=== PATIENT | male | born 1975 | race Two or more races ===

== ENCOUNTER 2022-06-20 16:25 | Inpatient (IN) | payer OTHER ==
[~2022-06-20] VITALS: Ht 170.2 cm; Wt 42.2 kg
[~2022-06-20 16:25] MED LIST: AMIN30LI2 PO; ASCO-352 PO; ASPI-1169 PO; ATOR40TA PO; BISA10SU11 RC; CALC500T52 PO; CLOP75TA15 PO; DOXY100T2 PO; FERR325T23 PO; FOLI0.4T6 PO; INSU100V39 SQ; INSU100V7 SQ; LEVE500T9 PO; MULT-447 PO; MUPI22OI2 TP; NA P133E RC; OLAN2.5T3 PO; PANT40TA49 PO; PIPE3.379 IV; PSYL1PAC8 PO; SODI480S2 TOP; TIMO5SOL11 EACHEYE; ZINC1CAP3 PO
--- NOTE | 2022-06-20 16:40 | NUR ---
PT BIB [facility] FROM [facility], PER REPORT PT WAS NOTED W/ FEVER, TACHYCARDIA AND TESTED POSITIVE FOR COVID TODAY. 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 PT VERBALLY RESPONSIVE. APPEARS COMFORTABLE. ON MONITOR. AWAITING MD MCKEON.
--- NOTE | 2022-06-20 18:06 | NUR ---
Leland capps in ED - 06/20/22 at 1857 by FELIPE COVID SWAB, INFLUENZA, RSV SWAB COLLECTED. LAB CALLED FOR OIL DISPENSER.
[2022-06-20] MEDS ORDERED: IV NS 0.9% 1,000 ML IV ONE ×2 (18:30→22:30)
[2022-06-20] MEDS ORDERED: NOREPINEPHRINE 8 MG in IV NS 0.9% 242 ML IV PRN (18:30)
--- NOTE | 2022-06-20 18:30 | NUR ---
DR WRIGHT AT BEDSIDE FOR EVAL.
--- NOTE | 2022-06-20 18:50 | NUR ---
IV LINE STARTED BLOOD DRAWN AND SENT TO LAB.
--- NOTE | 2022-06-20 18:56 | NUR ---
RADIOLOGY AT BEDSIDE FOR CHEST XRAY.
--- NOTE | 2022-06-20 19:40 | NUR ---
COVID SWAB COLLECTED AND SENT TO LAB.
[2022-06-20 19:55] LABS: BASOPHILS # (AUTO) 0.1 K/uL (0.0-0.2); BASOPHILS % (AUTO) 1.1 % (0.0-2.0); HEMATOCRIT 24 % (39-51); HEMOGLOBIN 7.7 g/dL (13.5-17.5); LYMPHOCYTES # (AUTO) 2.4 K/uL (0.8-4.8); LYMPHOCYTES % (AUTO) 21.5 % (20.0-44.0); MEAN CORPUSCULAR HGB CONC 33 g/dl (31.0-36.0); MEAN CORPUSCULAR VOLUME 85 fL (80-96); MONOCYTES # (AUTO) 1.3 K/uL (0.1-1.30); MONOCYTES % (AUTO) 11.1 % (2.0-12.0); NEUTROPHILS # (AUTO) 7.1 K/uL (1.8-8.9); NEUTROPHILS % (AUTO) 62.3 % (43.0-81.0); PLATELET COUNT (AUTO) 819 K/uL (150-450); RED BLOOD CELL COUNT(AUTO) 2.77 MIL/uL (4.5-6.0); WHITE BLOOD COUNT (AUTO) 11.3 K/uL (4.3-11.0)
[2022-06-20 20:09] LABS: CALCIUM, SERUM 7.3 mg/dL (8.5-10.1); CREATININE 0.9 mg/dL (0.6-1.3); POTASSIUM 4.7 mmol/L (3.5-5.1)
--- NOTE | 2022-06-20 20:27 | NUR ---
PROVID PT WITH URINAL AWAITING FOR URINE SAMPLE
--- NOTE | 2022-06-20 20:51 | NUR ---
URINE COLLECTED AND SENT TO LAB
--- NOTE | 2022-06-20 21:36 | NUR ---
COVID POSITIVE, MADE AWARE
[2022-06-20 23:00] LABS: BILIRUBIN,URINE NEGATIVE (NEGATIVE); COLOR,URINE YELLOW (YELLOW); LEUKOCYTE ESTERASE ,URINE 3+ (NEGATIVE); NITRITE, URINE NEGATIVE (NEGATIVE); PH,URINE 6.5 (5.0-8.0); PROTEIN,URINE TRACE mg/dl (NEGATIVE); UGLUCOSE NEGATIVE (NEGATIVE); UROBILINOGEN,URINE 0.2 EU/dL (0.2)
[2022-06-20 23:02] LABS: BACTERIA,URINE Few /HPF (None Seen); RBC,URINE 0-2 /HPF (0-2); SQUAMOUS EPITHELIAL CELL,UR Few /HPF (None Seen); WBC,URINE 21-50 /HPF (0-3)
--- NOTE | 2022-06-20 23:45 | NUR ---
REPORT GIVEN TO BLANCA GONZALEZ RN FOR HALI
--- NOTE | 2022-06-20 23:58 | NUR ---
PT TRANSFERRED TO [facility] VIA [facility]S PROTOCOL. VSS
[2022-06-21] VITALS: BP 104/68
[2022-06-21] MEDS ORDERED: ALBUTEROL FS 2.5 MG/0.5 ML VIAL.NEB NEB PRN
[2022-06-21] MEDS ORDERED: CEFTRIAXONE 1 G in IV D5W 50 ML IV SCH ×2
[2022-06-21] MEDS ORDERED: ONDANSETRON HCL/PF 4 MG/2 ML VIAL IVP PRN
[2022-06-21] MEDS ORDERED: MIDODRINE HCL (5MG) 5 MG TABLET PO PRN
[2022-06-21] MEDS ORDERED: CEFTRIAXONE 1 G VIAL ONE (00:32)
[2022-06-21] MEDS: IV NS 0.9% 1,000 ML IV SCH ×2 (00:33→13:19)
[2022-06-21] MEDS: MORPHINE SULFATE INJ 2 MG/ML DISP.SYRIN IV PRN (00:38)
--- NOTE | 2022-06-21 00:40 | NUR ---
RN NOTE PT REPORTS OF A 8/10 PAIN ON HIS BLE. PT ADMINISTERED MORPHINE 2 MG. WILL MONITOR FOR EFFECTIVENESS.
--- NOTE | 2022-06-21 01:03 | NUR ---
RN OPENING NOTE PT RECEIVED FROM ER. A&OX4. SKIN IS PALE AND DRY. RESPIRATIONS EVEN AND UNLABORED ON RA. DENIES SOB. C/O BILATERAL LEG PAIN 03/08. PT GIVEN MORPHINE FOR PAIN MANAGEMENT. IV ACCESS ON R FA 20 G PATENT AND FLUSHED. IV ABX INFUSING. GTUBE INTACT WITH NO FEEDING. DENIES OTHER NEEDS AT THIS TIME. SAFETY PRECAUTIONS IN PLACE. BED LOCKED AND AT LOWEST LEVEL WITH 2 RAILS UP. CALL LIGHT WITHIN REACH. Addendum: 06/21/22 at 0138 by PAULA LOPEZ RN WOUNDS NOTED BILAT LOWER EXTREMITIES. PICTURES TAKEN AND PLACE IN CHART.
[2022-06-21] MEDS: ACETAMINOPHEN 325 MG TABLET PO PRN (01:39)
[2022-06-21 04:00] VITALS: BP 96/55
--- NOTE | 2022-06-21 06:14 | NUR ---
RN CLOSING NOTE PT A&OX4. SKIN IS PALE AND DRY. RESPIRATIONS EVEN AND UNLABORED ON RA. PT IS PARAPLEGIC AND LEGALLY BLIND. GANGRENE NOTED BILAT FEET AND WOUND ON L GUTIERREZ. DRESSINGS CHANGED. GTUBE IN PLACE WITH NO ONGOING FEEDING. IV ACCESS ON R FA 20G INTACT. DENIES PAIN AND OTHER NEEDS AT THIS TIME. SAFETY PRECAUTIONS IN PLACE. BED LOCKED AND AT LOWEST LEVEL WITH 2 RAILS UP. CALL LIGHT WITHIN REACH.
[2022-06-21 07:27] LABS: BASOPHILS # (AUTO) 0.1 K/uL (0.0-0.2); BASOPHILS % (AUTO) 0.6 % (0.0-2.0); EOSINOPHILS % (AUTO) 4.1 % (0.0-6.0); LYMPHOCYTES # (AUTO) 2.1 K/uL (0.8-4.8); LYMPHOCYTES % (AUTO) 20.6 % (20.0-44.0); MEAN CORPUSCULAR HGB CONC 34 g/dl (31.0-36.0); MEAN CORPUSCULAR VOLUME 84 fL (80-96); MONOCYTES # (AUTO) 0.9 K/uL (0.1-1.30); MONOCYTES % (AUTO) 9.3 % (2.0-12.0); NEUTROPHILS # (AUTO) 6.7 K/uL (1.8-8.9); NEUTROPHILS % (AUTO) 65.4 % (43.0-81.0); PLATELET COUNT (AUTO) 777 K/uL (150-450); RED BLOOD CELL COUNT(AUTO) 2.34 MIL/uL (4.5-6.0); WHITE BLOOD COUNT (AUTO) 10.2 K/uL (4.3-11.0)
[2022-06-21 07:35] LABS: HEMATOCRIT 20 % (39-51); HEMOGLOBIN 6.6 g/dL (13.5-17.5)
[2022-06-21 07:36] LABS: BILIRUBIN,TOTAL 0.1 mg/dL (0.2-1.0); CALCIUM, SERUM 7.2 mg/dL (8.5-10.1); CREATININE 0.7 mg/dL (0.6-1.3); MAGNESIUM 1.7 mg/dL (1.8-2.4); PHOSPHORUS 3.1 mg/dL (2.5-4.9); POTASSIUM 3.5 mmol/L (3.5-5.1); TOTAL PROTEIN, SERUM 5.6 g/dL (6.4-8.2)
--- NOTE | 2022-06-21 07:38 | NUR ---
lab called in stated that hgb 6.[address] Hoyos left message to at this time waiting for his call back
[2022-06-21 07:50] LABS: ALBUMIN 0.8 g/dL (3.4-5.0)
--- NOTE | 2022-06-21 07:52 | NUR ---
lab called in his albumin was 0.8 notified as well
[2022-06-21 08:00] VITALS: BP 96/57
[2022-06-21] MEDS ORDERED: EPOE1VIA7 SQ (08:04)
[2022-06-21] MEDS ORDERED: ACET-868 PO (08:04)
[2022-06-21] MEDS ORDERED: GLUC1KIT IM (08:04)
[2022-06-21] MEDS ORDERED: DOCU250C14 PO (08:04)
[2022-06-21] MEDS ORDERED: GABA-532 PO (08:04)
[2022-06-21] MEDS ORDERED: NUT.250L18 GT (08:04)
[2022-06-21] MEDS ORDERED: HYDR-4303 PO (08:04)
[2022-06-21] MEDS ORDERED: TIMO5DRO18 EACHEYE (08:04)
--- NOTE | 2022-06-21 08:10 | NUR ---
DR. COPELAND AT THE UNIT AND MADE AWARE OF THE LAB RESULTS CBC/CMP AND CRITICAL LAB RESULT HGB=6.6; AND LOW ALBUMIN 0.8; PER MD " I WILL LOOK AT IT."
[2022-06-21 08:24] LABS: EOSINOPHILS % (MANUAL) 5 % (0-4); LYMPHOCYTES % (MANUAL) 16 % (16-48); MONOCYTES % (MANUAL) 6 % (0-11.0); NEUTROPHILS % (MANUAL) 73 (42-76)
[2022-06-21] MEDS: BLOOD SUGAR DIAGNOSTIC 1 EACH STRIP VI SCH ×4 (08:49→21:43)
[2022-06-21] MEDS: FERROUS SULFATE (325 MG) 325 MG/TAB TABLET PO SCH ×2 (09:00→17:00)
[2022-06-21] MEDS: ASPIRIN 81 MG TAB.CHEW PO SCH (09:00)
[2022-06-21] MEDS: CLOPIDOGREL BISULFATE 75 MG TABLET PO SCH (09:00)
[2022-06-21] MEDS: ZINC SULFATE 220 MG CAPSULE PO SCH (09:00)
[2022-06-21] MEDS: DOCUSATE SODIUM LIQ 100 MG/10 ML UDC PO SCH ×2 (09:00→17:00)
[2022-06-21] MEDS: LEVETIRACETAM (250 MG) 250 MG TABLET PO SCH ×2 (09:00→17:00)
[2022-06-21] MEDS: CALCIUM CARBONATE (1250) 500 MG TABLET PO SCH (09:00)
[2022-06-21] MEDS: PANTOPRAZOLE 40 MG TABLET.DR PO SCH (09:00)
[2022-06-21] MEDS: MULTIVIT W/MINERALS 1 TAB TABLET PO SCH (09:01)
[2022-06-21] MEDS: FOLIC ACID 1 MG TABLET PO SCH (09:01)
[2022-06-21] MEDS: POLYETHYLENE GLYCOL 3350 17 GM POWD.PACK PO SCH (09:01)
[2022-06-21] MEDS: ASCORBIC ACID 500 MG TABLET PO SCH (09:01)
[2022-06-21] MEDS: OLANZAPINE 2.5 MG TABLET PO SCH (09:02)
[2022-06-21] MEDS: PROSTAT (PYXIS) 30 ML UDC PO SCH ×3 (09:06→17:00)
[2022-06-21] MEDS: INSULIN REGULAR, HUMAN 100 UNIT/ML 3 ML VIAL SQ PRN ×2 (09:08→18:37)
[2022-06-21] MEDS ORDERED: NA PHOS,M-B/NA PHOS,DI-BA 1 EA ENEMA RC PRN (10:00)
[2022-06-21] MEDS: DAKINS HALF STRENGTH (0.25%) 480 ML BOTTLE TOP SCH (10:15)
[2022-06-21] MEDS: TIMOLOL -XE 0.5% 5 ML BOTTLE EACHEYE SCH ×2 (11:35→17:47)
[2022-06-21] MEDS: Magnesium 1GM/D5W 100ML PREMIX 100 ML IV SCH ×2 (11:37→12:39)
[2022-06-21] MEDS: MUPIROCIN OINT 2% 22 GM TUBE TP SCH (11:37)
--- NOTE | 2022-06-21 11:45 | NUR ---
WOUND CARE CONSULT: REVIEWED CHART, NURSING DOCUMENTATION AND PHOTOS WHICH INDICATE SACRAL INTACT DEEP TISSUE INJURY WITH SCARRING AND LOWER EXTREMITY WOUNDS WITH NECROTIC TISSUE , PRESENT ON ADMISSION. DR FERREIRA CALLED FOR DPM CONSULT. DISCUSSED SKIN PROTECTION WITH NURSING STAFF. IN AGREEMENT WITH PLAN OF CARE.
[2022-06-21 12:00] VITALS: BP 91/50
[2022-06-21] MEDS ORDERED: EPOETIN ALFA-EPBX 4,000 UNIT/ML VIAL SQ SCH (12:00)
[2022-06-21] MEDS ORDERED: Z GUARD REMEDY 4 OZ OINT TP PRN (12:00)
[2022-06-21] MEDS: Z GUARD REMEDY 4 OZ OINT TP SCH (12:43)
[2022-06-21] MEDS: GABAPENTIN 100 MG CAPSULE PO SCH ×2 (13:19→17:00)
--- NOTE | 2022-06-21 13:42 | NUR ---
LEFT A MESSAGE TO BRET-SISTER OF PT. REGARDING PLAN SURGERY THIS AFTERNOON.
[2022-06-21] MEDS ORDERED: ALBUMIN 25% 12.5 GM/50 ML BOTTLE IV STA (14:10)
[2022-06-21] MEDS ORDERED: ANESTHESIA TRAY IN PYXIS 1 EA TRAY MC ONE (14:27)
[2022-06-21 14:46] LABS: HEMOGLOBIN 7.5 g/dL (13.5-17.5)
[2022-06-21] MEDS: SOD FERRIC GLUC 125 MG in IV NS 0.9% 100 ML IV SCH (14:49)
--- NOTE | 2022-06-21 14:50 | NUR ---
SPOKE WITH PT'S SISTER-BRET AND SHE OKAYED REGARDING PLAN SURGERY THIS AFTERNOON.
[2022-06-21] MEDS ORDERED: ALBUMIN 25% 25 GM in PREMIX 1 EA IV SCH (15:00)
[2022-06-21] MEDS: IV D5/0.45 NACL 1,000 ML IV SCH (15:36)
[2022-06-21] MEDS: EPOETIN ALFA-EPBX 4,000 UNIT/ML VIAL SQ SCH (15:37)
[2022-06-21 16:00] VITALS: BP 100/56
[2022-06-21] MEDS ORDERED: VANCOMYCIN HCL 1.25 GM in IV D5W 260 ML IV ONE (16:00)
--- NOTE | 2022-06-21 16:15 | NUR ---
CHARGE NURSE-SOON MADE AWARE OF 102.5 TEMP FOR 1600PM, WILL NOTIFY
--- NOTE | 2022-06-21 16:43 | NUR ---
WAS NOTIFIED RE; TEMP 102.5F AND ORDERS NOTED STILL ON SCHEDULE TO SURGERY AT 1830 WILL NOTIFY TO OR AT THIS TIME MEDICATED WITH TYLENOL 650MG SUPP ORDERED
[2022-06-21] MEDS ORDERED: ACETAMINOPHEN 650 MG/SUPP.RECT RC PRN (16:45)
--- NOTE | 2022-06-21 16:54 | NUR ---
WAS NOTIFIED RE; PATIENT'S TEMP 102.5 F AT THIS TIME WELL OR CHARGE NURSE WAS ALSO NOTIFIED TYLENOL 650MG SUPP GIVEN WILL RECHECK TEMP AGAIN IN 1 HR
[2022-06-21] MEDS ORDERED: TIMOLOL 0.5% SOLN OPHTH 5 ML BOTTLE EACHEYE SCH (17:00)
--- NOTE | 2022-06-21 18:00 | NUR ---
BG 155; INSULIN COVERAGE NOT GIVEN D/T UPCOMING SURGERY, PT. NPO
--- NOTE | 2022-06-21 18:01 | NUR ---
DR. IBANEZ AWARE OF RECHECKED TEMP= 99.7F ORALLY; NO ORDER MADE.
[2022-06-21] MEDS ORDERED: MIDAZOLAM HCL 2 MG/2ML VIAL ONE (18:08)
[2022-06-21] MEDS ORDERED: FENTANYL PF 100MCG/2ML AMPUL ONE (18:08)
--- NOTE | 2022-06-21 18:37 | NUR ---
PATIENT TO SURGERY DEPT., PT. STABLE AND NO SSx OF ACUTE DISTRESS NOTED UPON PICK-UP BY O.R STAFF.
--- NOTE | 2022-06-21 19:05 | NUR ---
ENDORSED TO KIRA-HASMUKH FOR CONTINUITY OF CARE; PT. AT [facility] DE[facility] AT THIS TIME; DUE ZOSYN NOT YET GIVEN AND ALBUMIN DUE AT 1900 NOT GIVEN YET, FECAL OCCULT TO COLLECT RN-KIRA AWARE.
[2022-06-21] MEDS ORDERED: LIDOCAINE 1%-EPI 1:100,000 20 ML VIAL ONE (19:19)
--- NOTE | 2022-06-21 20:00 | NUR ---
RN NOTES PHARMACY INFORMED THAT PT STILL IN SURGERY, MEDS HELD AND WILL BE GIVEN/ADJUSTED ONCE PT COMES IN. PHYSICAL METEOROLOGIST WELL AWARE.
[2022-06-21 20:30] VITALS: BP 92/52
--- NOTE | 2022-06-21 20:30 | NUR ---
RN NOTES RECEIVED PT FROM PACU, S/P MARYIATERAL FOOT AND ANKLE I&D, DEBRIDEMENT R FOOT CALCANECTOMY. WILL CONTINUE TO MONITOR AND ASSESS THROUGHOUT THE SHIFT. WILL CARRY OUT CURRENT AND NEW MD ORDERS
[2022-06-21] MEDS: ALBUMIN 25% 25 GM in PREMIX 1 EA IV SCH ×3 (20:44→23:35)
[2022-06-21] MEDS: PIPERACILLIN /TAZOBACTAM 3.375 G in IV D5W 50 ML IV SCH (20:44)
[2022-06-21] MEDS: INSULIN GLARGINE, 100 UNIT/ML CARTRIDGE SQ SCH (21:45)
[2022-06-21] MEDS: *INSULIN REGULAR(HUMULIN R)HUM 100 UNIT/ML VIAL SQ PRN (21:46)
[2022-06-21] MEDS: ATORVASTATIN 40 MG TABLET PO SCH (21:52)
[2022-06-21] MEDS ORDERED: DOCUSATE SODIUM 250 MG CAPSULE PO SCH (22:00)
--- NOTE | 2022-06-21 23:40 | NUR ---
RN NOTES ONCJOY POWELL INFORMED ABOUT PT'S H&H 6 18, ORDER SECURED FOR 1 U PRBC. WILL CARRY OUT. TREASURY DIRECTOR MADE AWARE.
[2022-06-22] VITALS (10 sets, daily range): BP systolic 92–112; BP diastolic 51–68
[2022-06-22] MEDS: PIPERACILLIN /TAZOBACTAM 3.375 G in IV D5W 50 ML IV SCH ×4 (00:32→17:06)
[2022-06-22] MEDS: VANCOMYCIN HCL 0.75 GM in IV D5W 250 ML IV SCH ×3 (00:32→21:20)
--- NOTE | 2022-06-22 00:45 | NUR ---
RN NOTES TORI CHIRINOS UTILIZED FOR TEMP MANAGEMENT FOR PT. DATA COMMUNICATIONS ANALYST MADE AWARE.
--- NOTE | 2022-06-22 00:45 | NUR ---
RN NOTES STARTED 1 BAG OF PRBC ORDERED. INITIAL VITAL SIGNS TAKEN AND NOTED TO BE WNL. INFUSED PER PROTOCOL. WILL CONTINUE TO MONITOR AND ASSESS FOR ANY BLOOD TRANSFUSION REACTION AND ADDRESS ACCORDINGLY. EPIC TRAINER WELL AWARE.
--- NOTE | 2022-06-22 03:30 | NUR ---
RN NOTES ENDED BLOOD TRANSFUSION @0330, VITAL SIGNS REMAINED WNL, NO BLOOD TRANSFUSION REACTION NOTED. WILL CONTINUE TO MONITOR AND ASSESS FOR ANY BLOOD TRANSFUSION REACTION POST PROCEDURE. VESSEL ORDINARY SEAMAN MADE AWARE.
[2022-06-22] MEDS: IV D5/0.45 NACL 1,000 ML IV SCH ×2 (04:34→17:45)
--- NOTE | 2022-06-22 06:39 | NUR ---
RN CLOSING NOTE: PATIENT REMAINS IN ROOM IN NO SIGNS OF RESPIRATORY DISTRESS, PATIENT STILL ON ROOM AIR ;TOLERATING WELL SATURATING @ >95% SP02. PT S/P BILATERAL FOOT AND ANKLE I&D, DEBRIDEMENT R FOOT CALCANECTOMY. 1 U PRBC GIVEN LAST NIGHT. SAFETY MEASURES IMPLEMENTED, BED IN LOWEST POSITION, LOCKED, SIDE RAILS UP, CALL LIGHT WITHIN REACH. ALL NEEDS AND ORDERS ADDRESSED DURING THE SHIFT. IV ACCESS MAINTAINED INTACT, SECURED AND FLUSHING WELL. IV FLUID RUNNING PER ORDER. ALL DUE MEDS GIVEN ORDERED & SCHEDULED ; PATIENT TOLERATED WELL. PATIENT KEPT CLEAN AND COMFORTABLE WITHIN THE SHIFT. PATIENT ENDORSED TO INCOMING SHIFT RN WITH STABLE VITAL SIGN AND FOR CONTINUITY OF CARE.
[2022-06-22 06:46] LABS: BASOPHILS % (AUTO) 0.1 % (0.0-2.0); HEMATOCRIT 22 % (39-51); HEMOGLOBIN 7.4 g/dL (13.5-17.5); LYMPHOCYTES # (AUTO) 1.2 K/uL (0.8-4.8); LYMPHOCYTES % (AUTO) 9.7 % (20.0-44.0); MEAN CORPUSCULAR HGB CONC 33 g/dl (31.0-36.0); MEAN CORPUSCULAR VOLUME 84 fL (80-96); MONOCYTES # (AUTO) 0.4 K/uL (0.1-1.30); MONOCYTES % (AUTO) 3.2 % (2.0-12.0); NEUTROPHILS # (AUTO) 11.1 K/uL (1.8-8.9); PLATELET COUNT (AUTO) 729 K/uL (150-450); RED BLOOD CELL COUNT(AUTO) 2.66 MIL/uL (4.5-6.0); WHITE BLOOD COUNT (AUTO) 12.8 K/uL (4.3-11.0)
[2022-06-22 07:21] LABS: CALCIUM, SERUM 7.5 mg/dL (8.5-10.1); CREATININE 0.8 mg/dL (0.6-1.3); MAGNESIUM 2.2 mg/dL (1.8-2.4); PHOSPHORUS 3.7 mg/dL (2.5-4.9); POTASSIUM 3.6 mmol/L (3.5-5.1)
--- NOTE | 2022-06-22 07:40 | NUR ---
RN NOTE RECEIVED PT IN BED, IN ROOM AIR. NOT IN DISTRESS. ALERT AND RESPONSIVE. WITH IV ACCES ON RFA G20, WITH IVF D5 1/2NS RUNNING @75CC/HR. WILL CONTINUE TO MONITOR. SAFETY MEASURES MAINTAINED.
[2022-06-22] MEDS: CLOPIDOGREL BISULFATE 75 MG TABLET PO SCH (09:00)
[2022-06-22] MEDS: PROSTAT (PYXIS) 30 ML UDC PO SCH ×3 (09:00→16:46)
[2022-06-22] MEDS: POLYETHYLENE GLYCOL 3350 17 GM POWD.PACK PO SCH (09:00)
[2022-06-22] MEDS: GABAPENTIN 100 MG CAPSULE PO SCH ×3 (09:00→16:45)
[2022-06-22] MEDS: HYDROCODONE/APAP 5/325MG TABLET PO SCH (09:01)
[2022-06-22] MEDS: CALCIUM CARBONATE (1250) 500 MG TABLET PO SCH (09:01)
[2022-06-22] MEDS: FERROUS SULFATE (325 MG) 325 MG/TAB TABLET PO SCH ×2 (09:01→16:44)
[2022-06-22] MEDS: MULTIVIT W/MINERALS 1 TAB TABLET PO SCH (09:01)
[2022-06-22] MEDS: DOCUSATE SODIUM LIQ 100 MG/10 ML UDC PO SCH ×2 (09:01→16:44)
[2022-06-22] MEDS: LEVETIRACETAM (250 MG) 250 MG TABLET PO SCH ×2 (09:02→16:44)
[2022-06-22] MEDS: FOLIC ACID 1 MG TABLET PO SCH (09:02)
[2022-06-22] MEDS: OLANZAPINE 2.5 MG TABLET PO SCH (09:02)
[2022-06-22] MEDS: ASPIRIN 81 MG TAB.CHEW PO SCH (09:02)
[2022-06-22] MEDS: ZINC SULFATE 220 MG CAPSULE PO SCH (09:02)
[2022-06-22] MEDS: ASCORBIC ACID 500 MG TABLET PO SCH (09:02)
[2022-06-22] MEDS: PANTOPRAZOLE 40 MG TABLET.DR PO SCH (09:35)
[2022-06-22] MEDS: BLOOD SUGAR DIAGNOSTIC 1 EACH STRIP VI SCH ×4 (09:35→21:30)
[2022-06-22] MEDS: MUPIROCIN OINT 2% 22 GM TUBE TP SCH (09:38)
[2022-06-22] MEDS: DAKINS HALF STRENGTH (0.25%) 480 ML BOTTLE TOP SCH (09:38)
[2022-06-22] MEDS: TIMOLOL -XE 0.5% 5 ML BOTTLE EACHEYE SCH ×2 (09:38→16:45)
[2022-06-22] MEDS: Z GUARD REMEDY 4 OZ OINT TP SCH (09:39)
[2022-06-22] MEDS: SOD FERRIC GLUC 125 MG in IV NS 0.9% 100 ML IV SCH (14:36)
[2022-06-22] MEDS: INSULIN REGULAR, HUMAN 100 UNIT/ML 3 ML VIAL SQ PRN (17:40)
--- NOTE | 2022-06-22 18:25 | NUR ---
RN NOTE PT RESTING IN BED, IN ROOM AIR. NOT IN DISTRESS. ALERT AND RESPONSIVE. WITH IV ACCES ON RFA G20, WITH IVF D5 1/2NS RUNNING @75CC/HR. DUE MEDICATION GIVEN. AM/PM CARE RENDERED. WILL CONTINUE TO MONITOR. SAFETY MEASURES MAINTAINED.
--- NOTE | 2022-06-22 19:15 | NUR ---
RN NOTES RECEIVED PT FOR CONTINUITY OF CARE. PATIENT A/OX4 IN NO S/SX OF ACUTE DISTRESS AT THIS TIME; CURRENTLY ON ROOM AIR; WITH 02 SAT >95% AT THIS TIME.WITH IV ACCESS ON R FA#20 PATENT, INTACT AND FLUSHING WELL. PT STILL ON NPO. WITH RUNNING D5 1/2NS@75CC/HR. WITH GTUBE CLAMPED AT THIS TIME. WILL ENSURE SAFETY MEASURES WITHIN THE SHIFT. PATIENT BED ALARM IS ON. HEAD OF BED ELEVATED. BED IS LOCKED, IN LOWEST POSITION AND SIDE RAILS UP. CALL LIGHT WITHIN REACH OF THE PATIENT. WILL CONTINUE TO MONITOR AND REASSESS FOR ANY CHANGES AND WILL CARRY OUT ANY ONGOING AND ACTIVE MD ORDER.
[2022-06-22] MEDS: ATORVASTATIN 40 MG TABLET PO SCH (21:20)
[2022-06-22] MEDS: INSULIN GLARGINE, 100 UNIT/ML CARTRIDGE SQ SCH (21:31)
[2022-06-22] MEDS: *INSULIN REGULAR(HUMULIN R)HUM 100 UNIT/ML VIAL SQ PRN (21:36)
[2022-06-22 22:49] LABS: HEMOGLOBIN 6.6 g/dL (13.5-17.5)
--- NOTE | 2022-06-22 23:11 | NUR ---
RN NOTES ONCJOY POWELL INFORMED ABOUT PT'S H&H 6.6 21, ORDER SECURED FOR 1 U PRBC. WILL CARRY OUT. ISSUING OPERATOR MADE AWARE.
[2022-06-23] VITALS (11 sets, daily range): BP systolic 95–119; BP diastolic 63–72
[2022-06-23] MEDS: PIPERACILLIN /TAZOBACTAM 3.375 G in IV D5W 50 ML IV SCH ×2 (00:18→05:14)
--- NOTE | 2022-06-23 01:15 | NUR ---
RN NOTES STARTED 1 BAG OF PRBC ORDERED. INITIAL VITAL SIGNS TAKEN AND NOTED TO BE WNL. INFUSED PER PROTOCOL. WILL CONTINUE TO MONITOR AND ASSESS FOR ANY BLOOD TRANSFUSION REACTION AND ADDRESS ACCORDINGLY. ELECTRICAL SYSTEMS DESIGNER WELL AWARE.
--- NOTE | 2022-06-23 03:45 | NUR ---
RN NOTES ENDED BLOOD TRANSFUSION @0345, VITAL SIGNS REMAINED WNL, NO BLOOD TRANSFUSION REACTION NOTED. WILL CONTINUE TO MONITOR AND ASSESS FOR ANY BLOOD TRANSFUSION REACTION POST PROCEDURE. OIL TRUCK DRIVER MADE AWARE.
[2022-06-23] MEDS: IV D5/0.45 NACL 1,000 ML IV SCH ×2 (06:35→20:51)
--- NOTE | 2022-06-23 06:43 | NUR ---
RN CLOSING NOTE: PATIENT REMAINS IN ROOM IN NO SIGNS OF RESPIRATORY DISTRESS, PATIENT STILL ON ROOM AIR ;TOLERATING WELL SATURATING @ >95% SP02. 1 U PRBC GIVEN THIS SHIFT. PENDING SWALLOW EVAL; FOLLOW THROUGH FOR AM SHIFT NEEDED. SAFETY MEASURES IMPLEMENTED, BED IN LOWEST POSITION, LOCKED, SIDE RAILS UP, CALL LIGHT WITHIN REACH. ALL NEEDS AND ORDERS ADDRESSED DURING THE SHIFT. IV ACCESS MAINTAINED INTACT, SECURED AND FLUSHING WELL. IV FLUID RUNNING PER ORDER. ALL DUE MEDS GIVEN ORDERED & SCHEDULED ; PATIENT TOLERATED WELL. PATIENT KEPT CLEAN AND COMFORTABLE WITHIN THE SHIFT. PATIENT ENDORSED TO INCOMING SHIFT RN WITH STABLE VITAL SIGN AND FOR CONTINUITY OF CARE.
[2022-06-23 06:52] LABS: HEMOGLOBIN 9.2 g/dL (13.5-17.5)
[2022-06-23 07:14] LABS: ALBUMIN 1.9 g/dL (3.4-5.0); BILIRUBIN,TOTAL 0.8 mg/dL (0.2-1.0); CALCIUM, SERUM 8.1 mg/dL (8.5-10.1); CREATININE 0.7 mg/dL (0.6-1.3); POTASSIUM 3.1 mmol/L (3.5-5.1); TOTAL PROTEIN, SERUM 5.7 g/dL (6.4-8.2)
[2022-06-23] MEDS: POTASSIUM CL. PREMIX PERIPHER. 50 ML IV SCH ×4 (07:56→11:16)
[2022-06-23] MEDS: PANTOPRAZOLE 40 MG TABLET.DR PO SCH (07:56)
[2022-06-23] MEDS: BLOOD SUGAR DIAGNOSTIC 1 EACH STRIP VI SCH ×4 (08:10→21:12)
[2022-06-23] MEDS: LEVETIRACETAM (250 MG) 250 MG TABLET PO SCH ×2 (08:51→16:51)
[2022-06-23] MEDS: DOCUSATE SODIUM LIQ 100 MG/10 ML UDC PO SCH ×2 (08:51→16:51)
[2022-06-23] MEDS: MULTIVIT W/MINERALS 1 TAB TABLET PO SCH (08:51)
[2022-06-23] MEDS: POLYETHYLENE GLYCOL 3350 17 GM POWD.PACK PO SCH (08:51)
[2022-06-23] MEDS: ASPIRIN 81 MG TAB.CHEW PO SCH (08:51)
[2022-06-23] MEDS: GABAPENTIN 100 MG CAPSULE PO SCH ×3 (08:51→16:51)
[2022-06-23] MEDS: OLANZAPINE 2.5 MG TABLET PO SCH (08:51)
[2022-06-23] MEDS: CALCIUM CARBONATE (1250) 500 MG TABLET PO SCH (08:52)
[2022-06-23] MEDS: FERROUS SULFATE (325 MG) 325 MG/TAB TABLET PO SCH ×2 (08:52→16:51)
[2022-06-23] MEDS: CLOPIDOGREL BISULFATE 75 MG TABLET PO SCH (08:52)
[2022-06-23] MEDS: ASCORBIC ACID 500 MG TABLET PO SCH (08:52)
[2022-06-23] MEDS: FOLIC ACID 1 MG TABLET PO SCH (08:52)
[2022-06-23] MEDS: ZINC SULFATE 220 MG CAPSULE PO SCH (08:52)
[2022-06-23] MEDS: HYDROCODONE/APAP 5/325MG TABLET PO SCH (08:52)
[2022-06-23] MEDS: PROSTAT (PYXIS) 30 ML UDC PO SCH ×3 (08:53→16:52)
[2022-06-23] MEDS: DAKINS HALF STRENGTH (0.25%) 480 ML BOTTLE TOP SCH (08:53)
[2022-06-23] MEDS: TIMOLOL -XE 0.5% 5 ML BOTTLE EACHEYE SCH ×2 (08:53→16:52)
[2022-06-23] MEDS: Z GUARD REMEDY 4 OZ OINT TP SCH (08:53)
[2022-06-23] MEDS: MUPIROCIN OINT 2% 22 GM TUBE TP SCH (08:53)
[2022-06-23] MEDS: VANCOMYCIN HCL 0.75 GM in IV D5W 250 ML IV SCH ×2 (10:06→21:00)
--- NOTE | 2022-06-23 13:00 | NUR ---
RN NOTE PATIENT IS NPO, PROSTAT NOT GIVEN
[2022-06-23] MEDS: PIPERACILLIN /TAZOBACTAM 3.375 G in IV D5W 100 ML IV SCH ×2 (13:11→20:51)
[2022-06-23] MEDS: EPOETIN ALFA-EPBX 4,000 UNIT/ML VIAL SQ SCH (14:23)
[2022-06-23] MEDS ORDERED: POTASSIUM CL. PREMIX PERIPHER. 50 ML IV SCH (14:30)
[2022-06-23] MEDS: MORPHINE SULFATE INJ 2 MG/ML DISP.SYRIN IV PRN (15:02)
[2022-06-23] MEDS: SOD FERRIC GLUC 125 MG in IV NS 0.9% 100 ML IV SCH (16:51)
--- NOTE | 2022-06-23 18:30 | NUR ---
RN NOTE PATIENT HAD AN EPISODE OF HYPOGLYCEMIA AT 1830 BLOOD SUGAR WAS 29, RETAKE WAS 30. PATIENT WAS AWAKE AND ALERT HE COULD DRINK 8 OZ OF ORANGE JUICE AND 50% DEXTROSE IV PUSH WAS ADMINISTERED PRN. AFTER ONE HOUR ASSESSMENT PATIENT'S BLOOD GLUCOSE 179. WAS ENDORSED TO ERGONOMICS ENGINEER NURSE FOR HALI. PATIENT NOV IS ALERT ORIENTED X3 AWAKE IN HIS BED NOT NPO ANYMORE. 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 ALL SAFETY MEASURES IMPLEMENTED AND PATIENT IS LISTENING TO HIS RADIO.
[2022-06-23] MEDS: DEXTROSE 50%-WATER 50 ML DISP.SYRIN IV PRN (18:47)
--- NOTE | 2022-06-23 19:10 | NUR ---
RN NOTES RECEIVED PT FOR CONTINUITY OF CARE. PATIENT A/OX4 IN NO S/SX OF ACUTE DISTRESS AT THIS TIME; CURRENTLY ON ROOM AIR; WITH 02 SAT >95% AT THIS TIME.WITH IV ACCESS ON R FA#20 PATENT, INTACT AND FLUSHING WELL. ON CCHO 60GMS DIET. WITH RUNNING D5 1/2NS @75CC/HR. WITH GTUBE CLAMPED AT THIS TIME. WILL ENSURE SAFETY MEASURES WITHIN THE SHIFT. ON ISO PREC. PATIENT BED ALARM IS ON. HEAD OF BED ELEVATED. BED IS LOCKED, IN LOWEST POSITION AND SIDE RAILS UP. CALL LIGHT WITHIN REACH OF THE PATIENT. WILL CONTINUE TO MONITOR AND REASSESS FOR ANY CHANGES AND WILL CARRY OUT ANY ONGOING AND ACTIVE MD ORDER.
[2022-06-23] MEDS: ATORVASTATIN 40 MG TABLET PO SCH (21:00)
[2022-06-23] MEDS: INSULIN GLARGINE, 100 UNIT/ML CARTRIDGE SQ SCH (21:18)
[2022-06-23] MEDS: *INSULIN REGULAR(HUMULIN R)HUM 100 UNIT/ML VIAL SQ PRN (21:21)
[2022-06-24] VITALS: BP 105/65
[2022-06-24 04:00] VITALS: BP 104/76
--- NOTE | 2022-06-24 04:00 | NUR ---
RN NOTES PATIENT REMAINED TO BE IN NO SIGNS OF ACUTE RESPIRATORY DISTRESS , SAFE ENVIRONMENT MAINTAINED FOR PT. AM PATIENT CARE RENDERED AND WOUND CARE DONE. WILL CONTINUE TO MONITOR AND REASSESS FOR ANY CHANGES THROUGHOUT THE SHIFT.
[2022-06-24] MEDS: PIPERACILLIN /TAZOBACTAM 3.375 G in IV D5W 100 ML IV SCH ×3 (05:06→20:27)
[2022-06-24 06:24] LABS: BASOPHILS % (AUTO) 0.4 % (0.0-2.0); EOSINOPHILS % (AUTO) 4.5 % (0.0-6.0); HEMATOCRIT 35 % (39-51); HEMOGLOBIN 10.6 g/dL (13.5-17.5); LYMPHOCYTES # (AUTO) 1.9 K/uL (0.8-4.8); LYMPHOCYTES % (AUTO) 19.8 % (20.0-44.0); MEAN CORPUSCULAR HGB CONC 31 g/dl (31.0-36.0); MEAN CORPUSCULAR VOLUME 90 fL (80-96); MONOCYTES # (AUTO) 0.9 K/uL (0.1-1.30); MONOCYTES % (AUTO) 9.4 % (2.0-12.0); NEUTROPHILS # (AUTO) 6.4 K/uL (1.8-8.9); NEUTROPHILS % (AUTO) 65.9 % (43.0-81.0); PLATELET COUNT (AUTO) 704 K/uL (150-450); RED BLOOD CELL COUNT(AUTO) 3.83 MIL/uL (4.5-6.0); WHITE BLOOD COUNT (AUTO) 9.7 K/uL (4.3-11.0)
--- NOTE | 2022-06-24 06:39 | NUR ---
RN CLOSING NOTE: PATIENT REMAINS IN ROOM IN NO SIGNS OF RESPIRATORY DISTRESS, PATIENT STILL ON ROOM AIR ;TOLERATING WELL SATURATING @ >95% SP02. SAFETY MEASURES IMPLEMENTED, BED IN LOWEST POSITION, LOCKED, SIDE RAILS UP, CALL LIGHT WITHIN REACH. ALL NEEDS AND ORDERS ADDRESSED DURING THE SHIFT. IV ACCESS MAINTAINED INTACT, SECURED AND FLUSHING WELL. IV FLUID RUNNING PER ORDER. ALL DUE MEDS GIVEN ORDERED & SCHEDULED ; PATIENT TOLERATED WELL. PATIENT KEPT CLEAN AND COMFORTABLE WITHIN THE SHIFT. PATIENT ENDORSED TO INCOMING SHIFT RN WITH STABLE VITAL SIGN AND FOR CONTINUITY OF CARE.
[2022-06-24 06:54] LABS: CALCIUM, SERUM 8.4 mg/dL (8.5-10.1); CREATININE 0.6 mg/dL (0.6-1.3); POTASSIUM 3.8 mmol/L (3.5-5.1)
[2022-06-24 08:00] VITALS: BP 116/75
[2022-06-24] MEDS: GABAPENTIN 100 MG CAPSULE PO SCH ×3 (08:09→16:33)
[2022-06-24] MEDS: POLYETHYLENE GLYCOL 3350 17 GM POWD.PACK PO SCH (08:09)
[2022-06-24] MEDS: ASCORBIC ACID 500 MG TABLET PO SCH (08:09)
[2022-06-24] MEDS: DOCUSATE SODIUM LIQ 100 MG/10 ML UDC PO SCH ×2 (08:09→16:32)
[2022-06-24] MEDS: HYDROCODONE/APAP 5/325MG TABLET PO SCH (08:10)
[2022-06-24] MEDS: LEVETIRACETAM (250 MG) 250 MG TABLET PO SCH ×2 (08:10→16:32)
[2022-06-24] MEDS: OLANZAPINE 2.5 MG TABLET PO SCH (08:10)
[2022-06-24] MEDS: CALCIUM CARBONATE (1250) 500 MG TABLET PO SCH (08:10)
[2022-06-24] MEDS: ZINC SULFATE 220 MG CAPSULE PO SCH (08:10)
[2022-06-24] MEDS: ASPIRIN 81 MG TAB.CHEW PO SCH (08:10)
[2022-06-24] MEDS: MULTIVIT W/MINERALS 1 TAB TABLET PO SCH (08:11)
[2022-06-24] MEDS: PROSTAT (PYXIS) 30 ML UDC PO SCH ×3 (08:11→16:32)
[2022-06-24] MEDS: CLOPIDOGREL BISULFATE 75 MG TABLET PO SCH (08:12)
[2022-06-24] MEDS: BLOOD SUGAR DIAGNOSTIC 1 EACH STRIP VI SCH ×4 (08:12→21:35)
[2022-06-24] MEDS: FOLIC ACID 1 MG TABLET PO SCH (08:12)
[2022-06-24] MEDS: FERROUS SULFATE (325 MG) 325 MG/TAB TABLET PO SCH ×2 (08:12→16:32)
[2022-06-24] MEDS: PANTOPRAZOLE 40 MG TABLET.DR PO SCH (08:12)
[2022-06-24] MEDS: TIMOLOL -XE 0.5% 5 ML BOTTLE EACHEYE SCH ×2 (08:52→16:28)
[2022-06-24] MEDS: Z GUARD REMEDY 4 OZ OINT TP SCH (08:53)
[2022-06-24] MEDS: MUPIROCIN OINT 2% 22 GM TUBE TP SCH (08:53)
[2022-06-24] MEDS: DAKINS HALF STRENGTH (0.25%) 480 ML BOTTLE TOP SCH (08:53)
[2022-06-24] MEDS: IV D5/0.45 NACL 1,000 ML IV SCH ×2 (08:56→22:31)
[2022-06-24] MEDS: INSULIN REGULAR, HUMAN 100 UNIT/ML 3 ML VIAL SQ PRN ×2 (09:34→12:14)
[2022-06-24] MEDS: VANCOMYCIN HCL 0.75 GM in IV D5W 250 ML IV SCH ×2 (10:39→22:00)
[2022-06-24 12:00] VITALS: BP 125/72
[2022-06-24 16:00] VITALS: BP 104/67
[2022-06-24] MEDS: SOD FERRIC GLUC 125 MG in IV NS 0.9% 100 ML IV SCH (16:18)
[2022-06-24] MEDS: DEXTROSE 50%-WATER 50 ML DISP.SYRIN IV PRN (17:57)
--- NOTE | 2022-06-24 18:55 | NUR ---
RN CLOSING NOTE: PATIENT REMAINS IN ROOM IN NO SIGNS OF RESPIRATORY DISTRESS, PATIENT STILL ON ROOM AIR ;TOLERATING WELL SATURATING 100% SP02. SAFETY MEASURES IMPLEMENTED, BED IN LOWEST POSITION, LOCKED, SIDE RAILS UP, CALL LIGHT WITHIN REACH. ALL NEEDS AND ORDERS ADDRESSED DURING THE SHIFT. IV ACCESS RFA #20G MAINTAINED INTACT, SECURED AND FLUSHING WELL. IV FLUID RUNNING PER ORDER. ALL DUE MEDS GIVEN ORDERED & SCHEDULED ; PATIENT TOLERATED WELL. PATIENT KEPT CLEAN AND COMFORTABLE WITHIN THE SHIFT. WILL ENDORSE CONTINUITY OF CARE TO MANAGER SPORTS.
[2022-06-24 20:00] VITALS: BP 113/71
[2022-06-24] MEDS: ATORVASTATIN 40 MG TABLET PO SCH (21:30)
[2022-06-24] MEDS: *INSULIN REGULAR(HUMULIN R)HUM 100 UNIT/ML VIAL SQ PRN (21:38)
[2022-06-24] MEDS: INSULIN GLARGINE, 100 UNIT/ML CARTRIDGE SQ SCH (21:38)
--- NOTE | 2022-06-24 22:20 | NUR ---
RN NOTES ENDORSEMENT REPORT GIVEN TO HASMUKH ISAAC FOR HALI. TILE ROOFER MADE AWARE.
--- NOTE | 2022-06-24 22:30 | NUR ---
RN NOTE RECEIVED REPORT FROM JENNIFER MALONE RN FOR PT CONNOR HUNT FOR HALI. PT IN BED, SLEEPING. WILL CONTINUE TO MONITOR.
--- NOTE | 2022-06-24 22:34 | NUR ---
RN NOTE NEW VANCO TROUGH RESULT FROM 21:28 IS 25. PT VANCO @ 22:00 WITHHELD. CALLED AND INFORMED [facility].
[2022-06-25] VITALS: BP 102/67
[2022-06-25 04:00] VITALS: BP 113/73
[2022-06-25] MEDS: PIPERACILLIN /TAZOBACTAM 3.375 G in IV D5W 100 ML IV SCH ×3 (04:10→21:17)
--- NOTE | 2022-06-25 06:13 | NUR ---
RN CLOSING NOTE PT REMAINED STABLE T/O THE NIGHT. ALL VS STABLE. DUE MEDS GIVEN. PM CARE DONE. NEEDS ATTENDED TO. TURNED AND REPOSITIONED. WILL ENDORSE TO AM SHIFT NURSE FOR HALI.
[2022-06-25 06:48] LABS: BASOPHILS % (AUTO) 0.4 % (0.0-2.0); EOSINOPHILS % (AUTO) 6.1 % (0.0-6.0); HEMATOCRIT 32 % (39-51); HEMOGLOBIN 10.2 g/dL (13.5-17.5); LYMPHOCYTES # (AUTO) 1.4 K/uL (0.8-4.8); LYMPHOCYTES % (AUTO) 17.3 % (20.0-44.0); MEAN CORPUSCULAR HGB CONC 32 g/dl (31.0-36.0); MEAN CORPUSCULAR VOLUME 85 fL (80-96); MONOCYTES # (AUTO) 0.9 K/uL (0.1-1.30); MONOCYTES % (AUTO) 11.5 % (2.0-12.0); NEUTROPHILS # (AUTO) 5.1 K/uL (1.8-8.9); NEUTROPHILS % (AUTO) 64.7 % (43.0-81.0); PLATELET COUNT (AUTO) 769 K/uL (150-450); RED BLOOD CELL COUNT(AUTO) 3.75 MIL/uL (4.5-6.0); WHITE BLOOD COUNT (AUTO) 7.9 K/uL (4.3-11.0)
[2022-06-25 06:54] LABS: CALCIUM, SERUM 8.1 mg/dL (8.5-10.1); CREATININE 0.6 mg/dL (0.6-1.3); POTASSIUM 3.4 mmol/L (3.5-5.1)
[2022-06-25] MEDS: BLOOD SUGAR DIAGNOSTIC 1 EACH STRIP VI SCH ×4 (07:40→22:15)
[2022-06-25] MEDS: DEXTROSE 50%-WATER 50 ML DISP.SYRIN IV PRN ×3 (07:43→22:16)
[2022-06-25] MEDS ORDERED: POTASSIUM CHLORIDE 20 MEQ TAB.PRT.SR PO ONE (08:00)
[2022-06-25] MEDS: FOLIC ACID 1 MG TABLET PO SCH (08:55)
[2022-06-25] MEDS: ZINC SULFATE 220 MG CAPSULE PO SCH (08:55)
[2022-06-25] MEDS: LEVETIRACETAM (250 MG) 250 MG TABLET PO SCH ×2 (08:55→17:30)
[2022-06-25] MEDS: GABAPENTIN 100 MG CAPSULE PO SCH ×3 (08:55→17:30)
[2022-06-25] MEDS: CALCIUM CARBONATE (1250) 500 MG TABLET PO SCH (08:55)
[2022-06-25] MEDS: HYDROCODONE/APAP 5/325MG TABLET PO SCH (08:56)
[2022-06-25] MEDS: MULTIVIT W/MINERALS 1 TAB TABLET PO SCH (08:56)
[2022-06-25] MEDS: OLANZAPINE 2.5 MG TABLET PO SCH (08:56)
[2022-06-25] MEDS: DOCUSATE SODIUM LIQ 100 MG/10 ML UDC PO SCH ×2 (08:56→17:30)
[2022-06-25] MEDS: ASCORBIC ACID 500 MG TABLET PO SCH (08:56)
[2022-06-25] MEDS: PANTOPRAZOLE 40 MG TABLET.DR PO SCH (08:56)
[2022-06-25] MEDS: POLYETHYLENE GLYCOL 3350 17 GM POWD.PACK PO SCH (08:56)
[2022-06-25] MEDS: ASPIRIN 81 MG TAB.CHEW PO SCH (08:56)
[2022-06-25] MEDS: FERROUS SULFATE (325 MG) 325 MG/TAB TABLET PO SCH ×2 (08:56→17:30)
[2022-06-25] MEDS: MUPIROCIN OINT 2% 22 GM TUBE TP SCH (08:57)
[2022-06-25] MEDS: DAKINS HALF STRENGTH (0.25%) 480 ML BOTTLE TOP SCH (08:57)
[2022-06-25] MEDS: TIMOLOL -XE 0.5% 5 ML BOTTLE EACHEYE SCH ×2 (08:57→16:44)
[2022-06-25] MEDS: Z GUARD REMEDY 4 OZ OINT TP SCH (08:57)
[2022-06-25] MEDS: PROSTAT (PYXIS) 30 ML UDC PO SCH ×3 (08:59→17:30)
--- NOTE | 2022-06-25 09:00 | NUR ---
WELDING PROCESS SPECIALIST OPENING NOTES PATIENT REMAINS IN ROOM IN NO SIGNS OF RESPIRATORY DISTRESS, PATIENT STILL ON ROOM AIR ;TOLERATING WELL, NO SOB NOTED, RESPIRATION EVEN AND UNLABORED, NOT IN DISTESS. SAFETY MEASURES IMPLEMENTED, BED IN LOWEST POSITION, LOCKED, SIDE RAILS UP, CALL LIGHT WITHIN REACH. IV ACCESS RFA AND LEFT HAND MAINTAINED INTACT, SECURED AND FLUSHING WELL. IV FLUID RUNNING PER ORDER. NOTED SUGAR 52MG/DL, PATIENT ALERT AND VERBALLY RESPONSIVE, PRN IV DEXTROSE GIVEN, RECHECKED SUGAR 102MG/DL, ALL DUE MEDS GIVEN ORDERED & SCHEDULED ; PATIENT TOLERATED WELL. BED IN LOWEST POSITION. CALL LIGHT WITHIN REACH. SAFETY MEASURES IN PLACED. MD ORDERED TO DOWNGRADE PATIENT TO MED SURG. NOTED AND CARRIED OUT. WILL CONTINUE PLAN OF CARE.
[2022-06-25] MEDS: CLOPIDOGREL BISULFATE 75 MG TABLET PO SCH (09:01)
[2022-06-25 09:13] VITALS: BP 109/73
[2022-06-25] MEDS: VANCOMYCIN 500 MG in IV D5W 100ml IV SCH ×2 (11:02→22:04)
[2022-06-25 12:00] VITALS: BP 102/64
--- NOTE | 2022-06-25 12:03 | NUR ---
RN NOTES SUGAR CHECK 89MG/DL, NO INSULIN GIVEN. WILL CONTINUE PLAN OF CARE.
[2022-06-25] MEDS: IV D5/0.45 NACL 1,000 ML IV SCH (12:32)
[2022-06-25] MEDS: SOD FERRIC GLUC 125 MG in IV NS 0.9% 100 ML IV SCH (14:18)
--- NOTE | 2022-06-25 18:11 | NUR ---
RN NOTES NOTED SUGAR BEFORE DINNER 36MG/DL, PATIENT ALERT AND VERBALLY RESPONSIVE, PRN DEXTROSE GIVEN, RECHECKED BLOOD SUGAR AFTER 1 HR 124MG/DL, MIN PARKS NOTIFIED OF THE BLOOD SUGARS, WITH ORDER TO D/C KATY, NOTED AND CARRIED OUT. WILL CONTINUE PLAN OF CARE.
--- NOTE | 2022-06-25 18:12 | NUR ---
HEAD OF IT SHIV Manriquez NOTES PATIENT IN BED ALERT AND VERBALLY RESPONSIVE, IN NO SIGNS OF RESPIRATORY DISTRESS, PATIENT STILL ON ROOM AIR ;TOLERATING WELL, NO SOB NOTED, RESPIRATION EVEN AND UNLABORED, NOT IN DISTESS. SAFETY MEASURES IMPLEMENTED, BED IN LOWEST POSITION, LOCKED, SIDE RAILS UP, CALL LIGHT WITHIN REACH. IV ACCESS RFA AND LEFT HAND MAINTAINED INTACT, SECURED AND FLUSHING WELL. IV FLUID RUNNING PER ORDER. ALL DUE MEDS GIVEN ORDERED & SCHEDULED ; PATIENT TOLERATED WELL. BED IN LOWEST POSITION. CALL LIGHT WITHIN REACH. SAFETY MEASURES IN PLACED. WILL ENDORSE TO MEDICAL COST CONSULTANT NURSE FOR HALI.
--- NOTE | 2022-06-25 19:20 | NUR ---
RN OPEN NOTE: ALERT AND ORIENTED X4. UNLABORED BREATHING AT ROOM AIR. RIGHT FOREARM IV #20 WITH NO S/S OF COMPLICATIONS IVF OF 75 ML/HR D5 1/2 NS. LEFT HAND WITH SALINE LOCKED IV WITH NO S/S OF COMPLICATIONS. BLE WOUNDS WITH CLEAN DRESSINGS. REPOSITIONED WITH PILLOWS. HOB ELEVATED SEMI-FOWLERS POSITION. BILATERAL HALF SIDE RAILS UPX2. BED IN LOW POSITION, LOCKED WITH EXIT ALARM ON. CALL LIGHT IN REACH. DENIES PAIN OR DISCOMFORT.
[2022-06-25 20:00] VITALS: BP 136/80
--- NOTE | 2022-06-25 21:57 | NUR ---
CALLED [facility] AFTER HOURS INFORMED ESTRELLAO THROUGH DRAWN TODAY 06/25/22 AT 2105 IS 20 AND PATIENT IS SCHEDULED TO HAVE VANCOMYCIN 500MG AT 2200 PER [facility] PHARMACIST OK TO GIVE.
[2022-06-25] MEDS: ATORVASTATIN 40 MG TABLET PO SCH (22:05)
--- NOTE | 2022-06-25 23:08 | NUR ---
22:16 BLOOD GLUCOSE 33 D50 IVP GIVEN ORDERED. BLOOD GLUCOSE RECHECKED AT 2246 BLOOD GLUCOSE 157. PATIENT IS ALERT AND ORIENTED TO TIMES FOUR. ATE TWO PUDINS. DECLINES PAIN OR DISCOMFORT. IV ON RIGHT FOREARM STARTED G22 PATENT.
[2022-06-26] VITALS: BP 99/63
[2022-06-26 04:00] VITALS: BP 122/72
[2022-06-26] MEDS: PIPERACILLIN /TAZOBACTAM 3.375 G in IV D5W 100 ML IV SCH ×3 (05:03→21:12)
[2022-06-26] MEDS: IV D5/0.45 NACL 1,000 ML IV SCH ×2 (05:03→17:17)
--- NOTE | 2022-06-26 06:50 | NUR ---
RN CLOSING NOTE: ALERT AND ORIENTED X4. UNLABORED BREATHING AT ROOM AIR. RIGHT FOREARM IV #22 WITH NO S/S OF COMPLICATIONS IVF OF 75 ML/HR D5 1/2 NS. LEFT HAND WITH SALINE LOCKED IV WITH NO S/S OF COMPLICATIONS. BLE WOUNDS WITH TOPICAL TREATMENT DONE ORDERED. REPOSITIONED WITH PILLOWS. HOB ELEVATED SEMI-FOWLERS POSITION. BILATERAL HALF SIDE RAILS UPX2. BED IN LOW POSITION, LOCKED WITH EXIT ALARM ON. CALL LIGHT IN REACH. DENIES PAIN OR DISCOMFORT. NO S/S OF HYPO OR HYPERGLYCEMIA NOTED. DENIES PAIN OR DISCOMFORT.
[2022-06-26 07:20] LABS: BASOPHILS % (AUTO) 0.6 % (0.0-2.0); EOSINOPHILS % (AUTO) 6.1 % (0.0-6.0); HEMATOCRIT 34 % (39-51); LYMPHOCYTES # (AUTO) 1.6 K/uL (0.8-4.8); LYMPHOCYTES % (AUTO) 20.6 % (20.0-44.0); MEAN CORPUSCULAR HGB CONC 33 g/dl (31.0-36.0); MEAN CORPUSCULAR VOLUME 87 fL (80-96); MONOCYTES # (AUTO) 0.7 K/uL (0.1-1.30); NEUTROPHILS # (AUTO) 4.9 K/uL (1.8-8.9); NEUTROPHILS % (AUTO) 63.7 % (43.0-81.0); PLATELET COUNT (AUTO) 774 K/uL (150-450); RED BLOOD CELL COUNT(AUTO) 3.88 MIL/uL (4.5-6.0); WHITE BLOOD COUNT (AUTO) 7.7 K/uL (4.3-11.0)
[2022-06-26 07:43] LABS: CALCIUM, SERUM 7.7 mg/dL (8.5-10.1); CREATININE 0.7 mg/dL (0.6-1.3); POTASSIUM 3.5 mmol/L (3.5-5.1)
[2022-06-26] MEDS: BLOOD SUGAR DIAGNOSTIC 1 EACH STRIP VI SCH ×4 (07:57→21:26)
[2022-06-26 08:00] VITALS: BP 116/97
[2022-06-26] MEDS: CALCIUM CARBONATE (1250) 500 MG TABLET PO SCH (08:34)
[2022-06-26] MEDS: GABAPENTIN 100 MG CAPSULE PO SCH ×3 (08:34→17:17)
[2022-06-26] MEDS: POLYETHYLENE GLYCOL 3350 17 GM POWD.PACK PO SCH (08:34)
[2022-06-26] MEDS: DOCUSATE SODIUM LIQ 100 MG/10 ML UDC PO SCH ×2 (08:34→17:17)
[2022-06-26] MEDS: MULTIVIT W/MINERALS 1 TAB TABLET PO SCH (08:34)
[2022-06-26] MEDS: ZINC SULFATE 220 MG CAPSULE PO SCH (08:35)
[2022-06-26] MEDS: FERROUS SULFATE (325 MG) 325 MG/TAB TABLET PO SCH ×2 (08:35→17:17)
[2022-06-26] MEDS: FOLIC ACID 1 MG TABLET PO SCH (08:35)
[2022-06-26] MEDS: HYDROCODONE/APAP 5/325MG TABLET PO SCH (08:35)
[2022-06-26] MEDS: CLOPIDOGREL BISULFATE 75 MG TABLET PO SCH (08:35)
[2022-06-26] MEDS: OLANZAPINE 2.5 MG TABLET PO SCH (08:35)
[2022-06-26] MEDS: ASPIRIN 81 MG TAB.CHEW PO SCH (08:35)
[2022-06-26] MEDS: PANTOPRAZOLE 40 MG TABLET.DR PO SCH (08:35)
[2022-06-26] MEDS: ASCORBIC ACID 500 MG TABLET PO SCH (08:35)
[2022-06-26] MEDS: LEVETIRACETAM (250 MG) 250 MG TABLET PO SCH ×2 (08:35→17:17)
[2022-06-26] MEDS: Z GUARD REMEDY 4 OZ OINT TP SCH (08:36)
[2022-06-26] MEDS: MUPIROCIN OINT 2% 22 GM TUBE TP SCH (08:36)
[2022-06-26] MEDS: PROSTAT (PYXIS) 30 ML UDC PO SCH ×3 (08:36→17:18)
[2022-06-26] MEDS: DAKINS HALF STRENGTH (0.25%) 480 ML BOTTLE TOP SCH (08:36)
[2022-06-26] MEDS: TIMOLOL -XE 0.5% 5 ML BOTTLE EACHEYE SCH ×2 (08:37→17:17)
[2022-06-26] MEDS: INSULIN REGULAR, HUMAN 100 UNIT/ML 3 ML VIAL SQ PRN ×3 (08:39→17:46)
[2022-06-26] MEDS: VANCOMYCIN 500 MG in IV D5W 100ml IV SCH (10:36)
[2022-06-26 16:00] VITALS: BP 130/77
[2022-06-26] MEDS: EPOETIN ALFA-EPBX 4,000 UNIT/ML VIAL SQ SCH (17:17)
--- NOTE | 2022-06-26 19:47 | NUR ---
RN NOTE LAB CALLED REGARDING WOUND CULTURES COLLECTED ON 06/21. THE ORDER STATES RIGHT LEG. THE SPECIMEN IS LABELED R FOOT. PER CHARGE ADILIA JUST CANCEL, SINCE A NEW ORDER FOR BLE WOUND CULTURES IS ACTIVE. HOWEVER LAB STATED THEY WOULD MAKE A NEW ORDER.
[2022-06-26 20:00] VITALS: BP 140/68
[2022-06-26] MEDS: ATORVASTATIN 40 MG TABLET PO SCH (21:12)
[2022-06-26] MEDS: *INSULIN REGULAR(HUMULIN R)HUM 100 UNIT/ML VIAL SQ PRN (21:26)
[2022-06-27 04:00] VITALS: BP 105/66
[2022-06-27] MEDS: PIPERACILLIN /TAZOBACTAM 3.375 G in IV D5W 100 ML IV SCH ×3 (04:55→21:10)
[2022-06-27] MEDS: IV D5/0.45 NACL 1,000 ML IV SCH ×2 (04:55→17:55)
--- NOTE | 2022-06-27 05:17 | NUR ---
HASMUKH NOTE WOUND CULTURE COLLECTED AND SENT TO LAB Addendum: 06/27/22 at 0612 by AUREA DUFFY RN RIGHT AND LEFT FOOT
--- NOTE | 2022-06-27 06:00 | NUR ---
RN OPENING NOTES RECEIVED PT A/OX4, ON RA, TOLERATING WELL, NO S/S OF DISTRESS, IV ACCESS ON R AND L FA BOTH INTACT AND PATENT. IV FLUID RUNNING, PATENT HAS DRESSINGS ON BILATERAL LOWER EXTREMITIES, DRY AND INTACT WILL DO WOUND CARE LATER AND COLLECT CULTURES. SAFETY MEASURES IMPLEMENTED, BED IN LOWEST POSITION, LOCKED, SIDE RAILS UP, CALL LIGHT WITHIN REACH. WILL CONTINUE TO MONITOR THROUGHOUT SHIFT FOR HALI.
--- NOTE | 2022-06-27 07:11 | NUR ---
RN CLOSING NOTES PT A/OX4, ON RA, TOLERATING WELL, NO S/S OF DISTRESS, IV ACCESS ON R AND L FA BOTH INTACT AND PATENT. IV FLUID RUNNING, PATENT HAS DRESSINGS ON BILATERAL LOWER EXTREMITIES, DRY AND INTACT WILL DO WOUND CARE LATER AND COLLECT CULTURES. SAFETY MEASURES IMPLEMENTED, BED IN LOWEST POSITION, LOCKED, SIDE RAILS UP, CALL LIGHT WITHIN REACH. WILL ENDORSE TO MORNING SHIFT FOR HALI.
[2022-06-27 07:22] LABS: CALCIUM, SERUM 7.6 mg/dL (8.5-10.1); CREATININE 0.7 mg/dL (0.6-1.3); POTASSIUM 3.3 mmol/L (3.5-5.1)
--- NOTE | 2022-06-27 07:30 | NUR ---
RN OPENING NOTES PT A/OX4, ON RA, TOLERATING WELL, NO S/S OF DISTRESS at this time.pt is partially blind. IV ACCESS ON R AND L FA BOTH INTACT AND PATENT,flushing well.PATiENT HAS DRESSINGS ON BILATERAL LOWER EXTREMITIES, DRY AND INTACT.all SAFETY MEASURES IMPLEMENTED, BED IN LOWEST POSITION, LOCKED, SIDE RAILS UP x2 , CALL LIGHT WITHIN REACH.
[2022-06-27 08:00] VITALS: BP 108/72
[2022-06-27] MEDS: BLOOD SUGAR DIAGNOSTIC 1 EACH STRIP VI SCH ×4 (08:05→22:22)
[2022-06-27 08:12] LABS: BASOPHILS % (AUTO) 0.5 % (0.0-2.0); EOSINOPHILS % (AUTO) 5.4 % (0.0-6.0); HEMATOCRIT 30 % (39-51); HEMOGLOBIN 9.8 g/dL (13.5-17.5); LYMPHOCYTES % (AUTO) 23.8 % (20.0-44.0); MEAN CORPUSCULAR HGB CONC 33 g/dl (31.0-36.0); MEAN CORPUSCULAR VOLUME 87 fL (80-96); MONOCYTES # (AUTO) 0.7 K/uL (0.1-1.30); MONOCYTES % (AUTO) 9.1 % (2.0-12.0); NEUTROPHILS % (AUTO) 61.2 % (43.0-81.0); PLATELET COUNT (AUTO) 751 K/uL (150-450); RED BLOOD CELL COUNT(AUTO) 3.44 MIL/uL (4.5-6.0); WHITE BLOOD COUNT (AUTO) 8.2 K/uL (4.3-11.0)
[2022-06-27] MEDS: MUPIROCIN OINT 2% 22 GM TUBE TP SCH ×2 (09:00→10:21)
[2022-06-27] MEDS: PROSTAT (PYXIS) 30 ML UDC PO SCH ×3 (09:00→17:22)
[2022-06-27] MEDS: CLOPIDOGREL BISULFATE 75 MG TABLET PO SCH ×2 (09:00→09:42)
[2022-06-27] MEDS: FERROUS SULFATE (325 MG) 325 MG/TAB TABLET PO SCH ×2 (09:41→17:21)
[2022-06-27] MEDS: PANTOPRAZOLE 40 MG TABLET.DR PO SCH (09:41)
[2022-06-27] MEDS: DOCUSATE SODIUM LIQ 100 MG/10 ML UDC PO SCH ×2 (09:41→17:21)
[2022-06-27] MEDS: ASPIRIN 81 MG TAB.CHEW PO SCH (09:41)
[2022-06-27] MEDS: LEVETIRACETAM (250 MG) 250 MG TABLET PO SCH ×2 (09:42→17:21)
[2022-06-27] MEDS: MULTIVIT W/MINERALS 1 TAB TABLET PO SCH (09:42)
[2022-06-27] MEDS: GABAPENTIN 100 MG CAPSULE PO SCH ×3 (09:42→17:22)
[2022-06-27] MEDS: ASCORBIC ACID 500 MG TABLET PO SCH (09:42)
[2022-06-27] MEDS: CALCIUM CARBONATE (1250) 500 MG TABLET PO SCH (09:42)
[2022-06-27] MEDS: FOLIC ACID 1 MG TABLET PO SCH (09:42)
[2022-06-27] MEDS: HYDROCODONE/APAP 5/325MG TABLET PO SCH (09:43)
[2022-06-27] MEDS: ZINC SULFATE 220 MG CAPSULE PO SCH (09:43)
[2022-06-27] MEDS: OLANZAPINE 2.5 MG TABLET PO SCH (09:43)
[2022-06-27] MEDS: VANCOMYCIN 500 MG in IV D5W 100ml IV SCH (10:21)
[2022-06-27] MEDS: POLYETHYLENE GLYCOL 3350 17 GM POWD.PACK PO SCH (10:22)
[2022-06-27] MEDS: TIMOLOL -XE 0.5% 5 ML BOTTLE EACHEYE SCH ×2 (10:35→17:21)
--- NOTE | 2022-06-27 11:00 | NUR ---
RN NOTE CLARIFIED WITH DR. COPELAND IF PLAVIX SHOULD BE HELD DUE TO HIS PROGRESS NOTES. SAID OK TO HOLD ANTICOAGULANTS DUE TO POSSIBLE SURGERY
[2022-06-27] MEDS: Z GUARD REMEDY 4 OZ OINT TP SCH (11:54)
[2022-06-27] MEDS: DAKINS HALF STRENGTH (0.25%) 480 ML BOTTLE TOP SCH (11:54)
[2022-06-27 12:00] VITALS: BP 114/69
[2022-06-27] MEDS: INSULIN REGULAR, HUMAN 100 UNIT/ML 3 ML VIAL SQ PRN (13:04)
--- NOTE | 2022-06-27 19:25 | NUR ---
iv fluid bag is hanging from previous shift
--- NOTE | 2022-06-27 19:38 | NUR ---
rn closing note PT A/OX4, ON RA, TOLERATING WELL, no signs of pain or discomfort noted at this time, IV ACCESS ON R AND L FA BOTH INTACT AND PATENT,flushing well.PATiENT HAS DRESSINGS ON BILATERAL LOWER EXTREMITIES,clean DRY AND INTACT.all SAFETY MEASURES IMPLEMENTED, BED IN LOWEST POSITION, LOCKED, SIDE RAILS UP x2 , CALL LIGHT WITHIN REACH. endorsed to night time nanny rn for continity of care
[2022-06-27 20:00] VITALS: BP 108/73
[2022-06-27] MEDS: ATORVASTATIN 40 MG TABLET PO SCH (21:10)
[2022-06-27] MEDS: *INSULIN REGULAR(HUMULIN R)HUM 100 UNIT/ML VIAL SQ PRN (22:24)
[2022-06-28 04:00] VITALS: BP 61/60
[2022-06-28] MEDS: PIPERACILLIN /TAZOBACTAM 3.375 G in IV D5W 100 ML IV SCH ×3 (05:07→22:20)
--- NOTE | 2022-06-28 05:07 | NUR ---
RN NOTE PT REFUSED BED BATH.
[2022-06-28] MEDS: IV D5/0.45 NACL 1,000 ML IV SCH ×2 (06:44→22:23)
[2022-06-28 07:17] LABS: BASOPHILS # (AUTO) 0.1 K/uL (0.0-0.2); BASOPHILS % (AUTO) 0.6 % (0.0-2.0); EOSINOPHILS % (AUTO) 5.7 % (0.0-6.0); HEMATOCRIT 31 % (39-51); HEMOGLOBIN 10.2 g/dL (13.5-17.5); LYMPHOCYTES # (AUTO) 2.3 K/uL (0.8-4.8); LYMPHOCYTES % (AUTO) 25.6 % (20.0-44.0); MEAN CORPUSCULAR HGB CONC 33 g/dl (31.0-36.0); MEAN CORPUSCULAR VOLUME 86 fL (80-96); MONOCYTES # (AUTO) 0.9 K/uL (0.1-1.30); MONOCYTES % (AUTO) 10.5 % (2.0-12.0); NEUTROPHILS # (AUTO) 5.1 K/uL (1.8-8.9); NEUTROPHILS % (AUTO) 57.6 % (43.0-81.0); PLATELET COUNT (AUTO) 774 K/uL (150-450); RED BLOOD CELL COUNT(AUTO) 3.54 MIL/uL (4.5-6.0); WHITE BLOOD COUNT (AUTO) 8.9 K/uL (4.3-11.0)
--- NOTE | 2022-06-28 07:30 | NUR ---
RN OPENING NOTES PT A/OX4, ON RA, TOLERATING WELL AT 99%. NO S/S OF PAIN OR DISCOMFORT at this time.pt is partially blind. IV ACCESS ON R AND L FA BOTH INTACT AND PATENT,flushing well .PATiENT HAS DRESSINGS ON BILATERAL LOWER EXTREMITIES, DRY AND INTACT.all SAFETY MEASURES IMPLEMENTED, BED IN LOWEST POSITION, LOCKED, SIDE RAILS UP x2 , CALL LIGHT WITHIN REACH.
[2022-06-28 07:44] LABS: ALBUMIN 1.6 g/dL (3.4-5.0); BILIRUBIN,TOTAL 0.2 mg/dL (0.2-1.0); CALCIUM, SERUM 7.7 mg/dL (8.5-10.1); CREATININE 0.8 mg/dL (0.6-1.3); POTASSIUM 3.4 mmol/L (3.5-5.1); TOTAL PROTEIN, SERUM 5.8 g/dL (6.4-8.2)
[2022-06-28] MEDS: BLOOD SUGAR DIAGNOSTIC 1 EACH STRIP VI SCH ×4 (07:51→23:12)
[2022-06-28 08:00] VITALS: BP 114/71
[2022-06-28] MEDS: TIMOLOL -XE 0.5% 5 ML BOTTLE EACHEYE SCH ×2 (08:17→17:03)
[2022-06-28] MEDS: PANTOPRAZOLE 40 MG TABLET.DR PO SCH (08:17)
[2022-06-28] MEDS: DOCUSATE SODIUM LIQ 100 MG/10 ML UDC PO SCH ×2 (08:18→17:03)
[2022-06-28] MEDS: ASPIRIN 81 MG TAB.CHEW PO SCH (08:18)
[2022-06-28] MEDS: FERROUS SULFATE (325 MG) 325 MG/TAB TABLET PO SCH ×2 (08:19→16:59)
[2022-06-28] MEDS: OLANZAPINE 2.5 MG TABLET PO SCH (08:19)
[2022-06-28] MEDS: LEVETIRACETAM (250 MG) 250 MG TABLET PO SCH ×2 (08:20→17:04)
[2022-06-28] MEDS: GABAPENTIN 100 MG CAPSULE PO SCH ×3 (08:20→17:04)
[2022-06-28] MEDS: FOLIC ACID 1 MG TABLET PO SCH (08:20)
[2022-06-28] MEDS: POLYETHYLENE GLYCOL 3350 17 GM POWD.PACK PO SCH (08:20)
[2022-06-28] MEDS: CALCIUM CARBONATE (1250) 500 MG TABLET PO SCH (08:21)
[2022-06-28] MEDS: DAKINS HALF STRENGTH (0.25%) 480 ML BOTTLE TOP SCH (08:21)
[2022-06-28] MEDS: HYDROCODONE/APAP 5/325MG TABLET PO SCH (08:21)
[2022-06-28] MEDS: ZINC SULFATE 220 MG CAPSULE PO SCH (08:21)
[2022-06-28] MEDS: MULTIVIT W/MINERALS 1 TAB TABLET PO SCH (08:21)
[2022-06-28] MEDS: Z GUARD REMEDY 4 OZ OINT TP SCH (08:21)
[2022-06-28] MEDS: ASCORBIC ACID 500 MG TABLET PO SCH (08:21)
[2022-06-28] MEDS: PROSTAT (PYXIS) 30 ML UDC PO SCH ×3 (09:00→17:00)
[2022-06-28] MEDS ORDERED: POTASSIUM CHLORIDE 20 MEQ TAB.PRT.SR PO ONE (10:00)
[2022-06-28] MEDS: VANCOMYCIN 500 MG in IV D5W 100ml IV SCH (11:05)
[2022-06-28] MEDS: GLUCERNA SHAKE 237 ML CAN PO SCH ×2 (13:36→17:45)
[2022-06-28] MEDS: INSULIN REGULAR, HUMAN 100 UNIT/ML 3 ML VIAL SQ PRN ×3 (13:46→23:14)
[2022-06-28] MEDS: EPOETIN ALFA-EPBX 4,000 UNIT/ML VIAL SQ SCH (15:20)
[2022-06-28 16:00] VITALS: BP 120/74
--- NOTE | 2022-06-28 19:58 | NUR ---
rn closing note PT A/OX4, ON RA, TOLERATING WELL, no signs of pain or discomfort noted at this time, IV ACCESS ON R INTACT AND PATENT,flushing well.PATiENT HAS DRESSINGS ON BILATERAL LOWER EXTREMITIES,clean DRY AND INTACT.all SAFETY MEASURES IMPLEMENTED, BED IN LOWEST POSITION, LOCKED, SIDE RAILS UP x2 , CALL LIGHT WITHIN REACH. endorsed to awake overnight monitor rn for continuity of care
[2022-06-28 20:00] VITALS: BP 115/69
[2022-06-28] MEDS: ATORVASTATIN 40 MG TABLET PO SCH (22:22)
[2022-06-29 04:00] VITALS: BP 123/73
[2022-06-29] MEDS: PIPERACILLIN /TAZOBACTAM 3.375 G in IV D5W 100 ML IV SCH ×3 (04:20→22:23)
--- NOTE | 2022-06-29 06:55 | NUR ---
MED-SURGE CLOSING NOTE: ALERT AND ORIENTED TIMES 3. UNLABORED BREATHING AT ROOM AIR. SATING AT 100 %. IV ON RIGHT FOREARM INTACT WITH IVF D5 1/2 NS. NO S/S OF COMPLICATIONS. IV ON LEFT FOREARM INTACT PATENT WITH IV ABX WITH NO S/S OF COMPLICATIONS. NO A/R. GT IN PLACE CLAMPED. KEPT CLEAN AND DRY. NO S/S OF HYPO OR HYPER GLYCEMIA. TIAN. HALF SIDE RAILS UPX2. HOB ELEVATED SEMI-FOWLERS POSITION. BED IN LOW POSITION, LOCKED, EXIT ALARM ON. CALL LIGHT IN REACH.
--- NOTE | 2022-06-29 07:20 | NUR ---
RN NOTE RECEIVED PATIENT IN BED RESTING ALERT ORIENTED X3 VERBALLY RESPONSIVE,ON MED SURG MONITORING, ON ROOM AIR O2:99% IV SITE IS ON LEFT AND RIGHT FOREARM INTACT PATENT,INCONTINENT BOWEL/BLADDER,SAFETY MEASURE IMPLEMENT BED IN LOW POSITION AND LOCKED,HEAD OF THE BED ELEVATED CALL LIGHT WITHIN REACH CONTINUE TO MONITOR.
[2022-06-29] MEDS: PANTOPRAZOLE 40 MG TABLET.DR PO SCH (07:45)
[2022-06-29] MEDS: BLOOD SUGAR DIAGNOSTIC 1 EACH STRIP VI SCH ×4 (07:45→23:05)
[2022-06-29] MEDS: GLUCERNA SHAKE 237 ML CAN PO SCH ×3 (07:56→17:53)
[2022-06-29] MEDS: VANCOMYCIN HCL 0.75 GM in IV D5W 250 ML IV SCH (07:57)
[2022-06-29] MEDS: GABAPENTIN 100 MG CAPSULE PO SCH ×4 (08:31→17:10)
[2022-06-29] MEDS: MULTIVIT W/MINERALS 1 TAB TABLET PO SCH (08:32)
[2022-06-29] MEDS: OLANZAPINE 2.5 MG TABLET PO SCH (08:32)
[2022-06-29] MEDS: HYDROCODONE/APAP 5/325MG TABLET PO SCH (08:32)
[2022-06-29] MEDS: ASCORBIC ACID 500 MG TABLET PO SCH (08:32)
[2022-06-29] MEDS: CALCIUM CARBONATE (1250) 500 MG TABLET PO SCH (08:32)
[2022-06-29] MEDS: ASPIRIN 81 MG TAB.CHEW PO SCH (08:32)
[2022-06-29] MEDS: FOLIC ACID 1 MG TABLET PO SCH (08:33)
[2022-06-29] MEDS: FERROUS SULFATE (325 MG) 325 MG/TAB TABLET PO SCH ×2 (08:33→17:10)
[2022-06-29] MEDS: CLOPIDOGREL BISULFATE 75 MG TABLET PO SCH (08:33)
[2022-06-29] MEDS: DOCUSATE SODIUM LIQ 100 MG/10 ML UDC PO SCH ×2 (08:33→17:10)
[2022-06-29] MEDS: LEVETIRACETAM (250 MG) 250 MG TABLET PO SCH ×2 (08:33→17:10)
[2022-06-29] MEDS: POLYETHYLENE GLYCOL 3350 17 GM POWD.PACK PO SCH (08:34)
[2022-06-29] MEDS: Z GUARD REMEDY 4 OZ OINT TP SCH (08:43)
[2022-06-29] MEDS: DAKINS HALF STRENGTH (0.25%) 480 ML BOTTLE TOP SCH (08:43)
[2022-06-29] MEDS: ZINC SULFATE 220 MG CAPSULE PO SCH (08:43)
[2022-06-29] MEDS: TIMOLOL -XE 0.5% 5 ML BOTTLE EACHEYE SCH ×2 (08:44→17:12)
[2022-06-29] MEDS: PROSTAT (PYXIS) 30 ML UDC PO SCH ×3 (08:45→17:13)
[2022-06-29] MEDS: INSULIN REGULAR, HUMAN 100 UNIT/ML 3 ML VIAL SQ PRN ×3 (10:11→17:16)
[2022-06-29 12:00] VITALS: BP 126/73
[2022-06-29 12:07] LABS: POTASSIUM 4.1 mmol/L (3.5-5.1)
[2022-06-29 12:08] LABS: CALCIUM, SERUM 7.5 mg/dL (8.5-10.1); CREATININE 0.9 mg/dL (0.6-1.3)
[2022-06-29 15:06] LABS: BASOPHILS # (AUTO) 0.1 K/uL (0.0-0.2); BASOPHILS % (AUTO) 0.5 % (0.0-2.0); EOSINOPHILS % (AUTO) 3.7 % (0.0-6.0); HEMATOCRIT 31 % (39-51); HEMOGLOBIN 9.9 g/dL (13.5-17.5); LYMPHOCYTES # (AUTO) 1.9 K/uL (0.8-4.8); LYMPHOCYTES % (AUTO) 15.7 % (20.0-44.0); MEAN CORPUSCULAR HGB CONC 32 g/dl (31.0-36.0); MEAN CORPUSCULAR VOLUME 87 fL (80-96); MONOCYTES % (AUTO) 8.7 % (2.0-12.0); NEUTROPHILS # (AUTO) 8.6 K/uL (1.8-8.9); NEUTROPHILS % (AUTO) 71.4 % (43.0-81.0); PLATELET COUNT (AUTO) 697 K/uL (150-450); RED BLOOD CELL COUNT(AUTO) 3.58 MIL/uL (4.5-6.0)
--- NOTE | 2022-06-29 18:58 | NUR ---
RN NOTE PATIENT REMAIN ON ALERT ORIENTEDX3 VERBALLY RESPONSIVE ON ROOM AIR O2:99% NO SOB NOT ACUTE DISTRESS NOTED,ALL DUE MEDS GIVEN MD ORDERED KEPT CLEAN AND DRY ALL THE TIME,KEPT HEAD OF THE BED ELEVATED,KEPT CALL LIGHT WITHIN REACH,ENDORSE NEXT COMING SHIFT FOR CONTINUATION OF CARE
--- NOTE | 2022-06-29 19:30 | NUR ---
RN NOTE PT IN BED, AO X 4, IN NO ACUTE DISTRESS, SATURATION AT 99% ON RA, HR IS 63. IV LINE AT RFA AND LFA PATENT AND FLUSHING WELL, SALINE LOCKED. GTUBE CLAMPED. WOUND DRESSING AT BLE DRY AND INTACT. SAFETY MEASURES IN PLACE, BED IS LOCKED AND AT LOWEST POSITION, HOB ELEVATED, CALL LIGHT WITHIN REACH OF PATIENT. ASKED PATIENT REGARDING DECISION ON R BKA, STATED HASNT DECIDED AND WILL LET US KNOW. WILL CONT TO MONITOR AND REASSESS.
[2022-06-29 20:00] VITALS: BP 110/69
[2022-06-29] MEDS: ATORVASTATIN 40 MG TABLET PO SCH (22:23)
[2022-06-29] MEDS: *INSULIN REGULAR(HUMULIN R)HUM 100 UNIT/ML VIAL SQ PRN (23:06)
[2022-06-30] MEDS: PIPERACILLIN /TAZOBACTAM 3.375 G in IV D5W 100 ML IV SCH ×3 (05:19→22:08)
[2022-06-30 05:43] VITALS: BP 116/61
[2022-06-30 06:55] LABS: BASOPHILS % (AUTO) 0.4 % (0.0-2.0); EOSINOPHILS % (AUTO) 4.9 % (0.0-6.0); HEMATOCRIT 31 % (39-51); HEMOGLOBIN 10.3 g/dL (13.5-17.5); LYMPHOCYTES # (AUTO) 2.6 K/uL (0.8-4.8); MEAN CORPUSCULAR HGB CONC 33 g/dl (31.0-36.0); MEAN CORPUSCULAR VOLUME 87 fL (80-96); MONOCYTES # (AUTO) 1.2 K/uL (0.1-1.30); MONOCYTES % (AUTO) 10.7 % (2.0-12.0); PLATELET COUNT (AUTO) 685 K/uL (150-450); RED BLOOD CELL COUNT(AUTO) 3.61 MIL/uL (4.5-6.0); WHITE BLOOD COUNT (AUTO) 11.5 K/uL (4.3-11.0)
[2022-06-30 07:46] LABS: CALCIUM, SERUM 7.6 mg/dL (8.5-10.1); CREATININE 0.8 mg/dL (0.6-1.3)
[2022-06-30 08:00] VITALS: BP 92/59
[2022-06-30] MEDS: GLUCERNA SHAKE 237 ML CAN PO SCH ×3 (08:00→17:26)
[2022-06-30 08:52] LABS: POTASSIUM 3.7 mmol/L (3.5-5.1)
[2022-06-30] MEDS: DAKINS HALF STRENGTH (0.25%) 480 ML BOTTLE TOP SCH (09:00)
[2022-06-30] MEDS: TIMOLOL -XE 0.5% 5 ML BOTTLE EACHEYE SCH ×2 (09:00→17:26)
[2022-06-30] MEDS: Z GUARD REMEDY 4 OZ OINT TP SCH (09:00)
[2022-06-30] MEDS: PROSTAT (PYXIS) 30 ML UDC PO SCH ×3 (09:00→17:00)
--- NOTE | 2022-06-30 09:00 | NUR ---
per DR. GARCIA he spoke with sister Keisha (DPOA)and agreed with procedure.confirmed by HASMUKH LEMA.
--- NOTE | 2022-06-30 09:40 | NUR ---
dr. wolf notified consent obtained from sister franklin for bka.
--- NOTE | 2022-06-30 09:43 | NUR ---
RN NOTE CONSENT FOR RIGHT KNEE BELOW AMPUTATION SIGN BY TELEPHONE BY SISTER CHRISTI, PLACED IN CHART.
[2022-06-30] MEDS: BLOOD SUGAR DIAGNOSTIC 1 EACH STRIP VI SCH ×4 (11:21→22:38)
[2022-06-30] MEDS: VANCOMYCIN HCL 0.75 GM in IV D5W 250 ML IV SCH (11:32)
[2022-06-30] MEDS: ASCORBIC ACID 500 MG TABLET PO SCH (11:33)
[2022-06-30] MEDS: PANTOPRAZOLE 40 MG TABLET.DR PO SCH (11:33)
[2022-06-30] MEDS: LEVETIRACETAM (250 MG) 250 MG TABLET PO SCH ×2 (11:33→17:26)
[2022-06-30] MEDS: ASPIRIN 81 MG TAB.CHEW PO SCH (11:33)
[2022-06-30] MEDS: CLOPIDOGREL BISULFATE 75 MG TABLET PO SCH (11:33)
[2022-06-30] MEDS: FOLIC ACID 1 MG TABLET PO SCH (11:33)
[2022-06-30] MEDS: ZINC SULFATE 220 MG CAPSULE PO SCH (11:33)
[2022-06-30] MEDS: DOCUSATE SODIUM LIQ 100 MG/10 ML UDC PO SCH ×2 (11:33→17:25)
[2022-06-30] MEDS: FERROUS SULFATE (325 MG) 325 MG/TAB TABLET PO SCH ×2 (11:34→17:26)
[2022-06-30] MEDS: CALCIUM CARBONATE (1250) 500 MG TABLET PO SCH (11:34)
[2022-06-30] MEDS: MULTIVIT W/MINERALS 1 TAB TABLET PO SCH (11:34)
[2022-06-30] MEDS: POLYETHYLENE GLYCOL 3350 17 GM POWD.PACK PO SCH (11:34)
[2022-06-30] MEDS: OLANZAPINE 2.5 MG TABLET PO SCH (11:34)
[2022-06-30] MEDS: INSULIN REGULAR, HUMAN 100 UNIT/ML 3 ML VIAL SQ PRN (11:36)
[2022-06-30] MEDS: HYDROCODONE/APAP 5/325MG TABLET PO SCH (11:41)
[2022-06-30] MEDS: GABAPENTIN 100 MG CAPSULE PO SCH ×3 (11:41→17:26)
[2022-06-30 16:00] VITALS: BP 85/53
[2022-06-30] MEDS: EPOETIN ALFA-EPBX 4,000 UNIT/ML VIAL SQ SCH (17:25)
--- NOTE | 2022-06-30 19:20 | NUR ---
RN NOTE PT IN BED, AO X 4, IN NO ACUTE DISTRESS, SATURATION AT 99% ON RA, HR IS 65. IV LINE AT RFA AND LFA PATENT AND FLUSHING WELL, SALINE LOCKED. GTUBE CLAMPED. WOUND DRESSING AT BLE DRY AND INTACT. SAFETY MEASURES IN PLACE, BED IS LOCKED AND AT LOWEST POSITION, HOB ELEVATED, CALL LIGHT WITHIN REACH OF PATIENT. WILL CONT TO MONITOR AND REASSESS.
[2022-06-30 20:00] VITALS: BP 99/56
--- NOTE | 2022-06-30 20:35 | NUR ---
RN NOTE PT IN BED, AO X 4, IN NO ACUTE DISTRESS, SATURATION AT 98% ON RA, HR IS 63. IV LINE AT RFA AND LFA PATENT AND FLUSHING WELL, SALINE LOCKED. GTUBE CLAMPED. WOUND DRESSING AT BLE DRY AND INTACT. SAFETY MEASURES IN PLACE, BED IS LOCKED AND AT LOWEST POSITION, HOB ELEVATED, CALL LIGHT WITHIN REACH OF PATIENT. ENDORSED CONTINUITY OF CARE TO FLOORPERSON RN
[2022-06-30] MEDS: ATORVASTATIN 40 MG TABLET PO SCH (22:08)
[2022-06-30] MEDS: *INSULIN REGULAR(HUMULIN R)HUM 100 UNIT/ML VIAL SQ PRN (22:14)
[2022-07-01] MEDS: PIPERACILLIN /TAZOBACTAM 3.375 G in IV D5W 100 ML IV SCH ×2 (04:13→12:28)
[2022-07-01 04:30] VITALS: BP 81/49
[2022-07-01] MEDS ORDERED: IV NS 0.9% 1,000 ML IV ONE (05:00)
[2022-07-01] MEDS: IV NS 0.9% 1,000 ML IV PRN ×2 (05:58→22:02)
[2022-07-01 06:07] VITALS: BP 123/68
[2022-07-01 07:07] LABS: BASOPHILS # (AUTO) 0.1 K/uL (0.0-0.2); BASOPHILS % (AUTO) 0.6 % (0.0-2.0); EOSINOPHILS % (AUTO) 4.6 % (0.0-6.0); HEMATOCRIT 30 % (39-51); HEMOGLOBIN 9.7 g/dL (13.5-17.5); LYMPHOCYTES # (AUTO) 2.6 K/uL (0.8-4.8); LYMPHOCYTES % (AUTO) 22.6 % (20.0-44.0); MEAN CORPUSCULAR HGB CONC 32 g/dl (31.0-36.0); MEAN CORPUSCULAR VOLUME 87 fL (80-96); MONOCYTES # (AUTO) 1.2 K/uL (0.1-1.30); MONOCYTES % (AUTO) 10.4 % (2.0-12.0); NEUTROPHILS # (AUTO) 7.1 K/uL (1.8-8.9); NEUTROPHILS % (AUTO) 61.8 % (43.0-81.0); PLATELET COUNT (AUTO) 620 K/uL (150-450); RED BLOOD CELL COUNT(AUTO) 3.47 MIL/uL (4.5-6.0); WHITE BLOOD COUNT (AUTO) 11.6 K/uL (4.3-11.0)
--- NOTE | 2022-07-01 07:15 | NUR ---
RN OPENING [facility] PATIENT IN ROOM ALERT AND ORIENTED TIMES 4. CONDOM CATHETER ATTACHED DRAINING OUTPUT. SKIN ALERTATIONS DOCUMENTED IN PHYSICAL CHART. GASTRIC TUBE ATTACHED, CLAMPED. IV ACCESS ON LEFT AND RIGHT FOREARM 20 GAUGE RUNNING FLUIDS ORDERED. SAFETY MEASURES IMPLEMENTED. WILL CONTINUE PLAN OF CARE AND ANTICIPATE NEEDS.
[2022-07-01 07:23] LABS: CALCIUM, SERUM 7.3 mg/dL (8.5-10.1); CREATININE 0.8 mg/dL (0.6-1.3); POTASSIUM 2.9 mmol/L (3.5-5.1)
[2022-07-01 08:00] VITALS: BP 88/60
[2022-07-01] MEDS: BLOOD SUGAR DIAGNOSTIC 1 EACH STRIP VI SCH ×4 (08:18→21:57)
[2022-07-01] MEDS: PANTOPRAZOLE 40 MG TABLET.DR PO SCH (08:18)
[2022-07-01] MEDS: VANCOMYCIN HCL 0.75 GM in IV D5W 250 ML IV SCH (08:18)
[2022-07-01] MEDS: GLUCERNA SHAKE 237 ML CAN PO SCH ×3 (08:18→17:20)
[2022-07-01] MEDS: Z GUARD REMEDY 4 OZ OINT TP SCH (09:00)
[2022-07-01] MEDS: PROSTAT (PYXIS) 30 ML UDC PO SCH ×3 (09:00→17:22)
[2022-07-01] MEDS ORDERED: POTASSIUM CHLORIDE 20 MEQ TAB.PRT.SR PO ONE (09:00)
[2022-07-01] MEDS: TIMOLOL -XE 0.5% 5 ML BOTTLE EACHEYE SCH ×2 (09:00→17:21)
[2022-07-01] MEDS: DAKINS HALF STRENGTH (0.25%) 480 ML BOTTLE TOP SCH (09:00)
[2022-07-01] MEDS: DOCUSATE SODIUM LIQ 100 MG/10 ML UDC PO SCH ×2 (10:01→17:20)
[2022-07-01] MEDS: ZINC SULFATE 220 MG CAPSULE PO SCH (10:01)
[2022-07-01] MEDS: CALCIUM CARBONATE (1250) 500 MG TABLET PO SCH (10:01)
[2022-07-01] MEDS: OLANZAPINE 2.5 MG TABLET PO SCH (10:02)
[2022-07-01] MEDS: CLOPIDOGREL BISULFATE 75 MG TABLET PO SCH (10:02)
[2022-07-01] MEDS: ASPIRIN 81 MG TAB.CHEW PO SCH (10:03)
[2022-07-01] MEDS: FERROUS SULFATE (325 MG) 325 MG/TAB TABLET PO SCH ×2 (10:03→17:19)
[2022-07-01] MEDS: MULTIVIT W/MINERALS 1 TAB TABLET PO SCH (10:03)
[2022-07-01] MEDS: GABAPENTIN 100 MG CAPSULE PO SCH ×3 (10:03→17:20)
[2022-07-01] MEDS: HYDROCODONE/APAP 5/325MG TABLET PO SCH (10:03)
[2022-07-01] MEDS: POLYETHYLENE GLYCOL 3350 17 GM POWD.PACK PO SCH (10:04)
[2022-07-01] MEDS: LEVETIRACETAM (250 MG) 250 MG TABLET PO SCH ×2 (10:04→17:20)
[2022-07-01] MEDS: ASCORBIC ACID 500 MG TABLET PO SCH (10:04)
[2022-07-01] MEDS: FOLIC ACID 1 MG TABLET PO SCH (10:04)
[2022-07-01] MEDS: INSULIN REGULAR, HUMAN 100 UNIT/ML 3 ML VIAL SQ PRN ×2 (12:22→17:48)
[2022-07-01] MEDS: MEROPENEM 1 G in IV NS 0.9% 100 ML IV SCH ×2 (13:39→21:45)
[2022-07-01 16:00] VITALS: BP 104/59
--- NOTE | 2022-07-01 18:42 | NUR ---
RN CLOSING NOTE PATIENT REMAINS IN ROOM. ALL DUE MEDICATIONS GIVEN. KEPT CLEAN AND DRY THROUGHOUT SHIFT. HAND OFF REPORT GIVEN TO NIGHTSHIFT RN FOR CONTINUATION OF CARE.
--- NOTE | 2022-07-01 19:30 | NUR ---
RN NOTE PT IN BED, AO X 4, IN NO ACUTE DISTRESS, SATURATION AT 98% ON RA, HR IS 68. IV LINE AT RFA AND LFA PATENT AND FLUSHING WELL, WITH NS AT 75 ML/HR. GTUBE CLAMPED. WOUND DRESSING AT BLE DRY AND INTACT. SAFETY MEASURES IN PLACE, BED IS LOCKED AND AT LOWEST POSITION, HOB ELEVATED, CALL LIGHT WITHIN REACH OF PATIENT. WILL CONT TO MONITOR AND REASSESS.
[2022-07-01 20:00] VITALS: BP 94/66
[2022-07-01] MEDS: ATORVASTATIN 40 MG TABLET PO SCH (21:45)
[2022-07-01] MEDS: DEXTROSE 50%-WATER 50 ML DISP.SYRIN IV PRN (22:00)
[2022-07-02 04:00] VITALS: BP 91/60
[2022-07-02] MEDS: MEROPENEM 1 G in IV NS 0.9% 100 ML IV SCH ×3 (04:19→21:24)
--- NOTE | 2022-07-02 07:10 | NUR ---
RN notes Received patient in bed. Patient is resting without active complaint. IV sites are dry and intact with NS running at 75mL/hr. Call desai is placed within reach. Bed is locked and placed in the lowest position. All safety measures have been implemented. Will continue monitoring and care.
[2022-07-02 08:00] VITALS: BP 105/64
[2022-07-02] MEDS: BLOOD SUGAR DIAGNOSTIC 1 EACH STRIP VI SCH ×4 (08:20→21:24)
[2022-07-02 08:23] LABS: BASOPHILS # (AUTO) 0.1 K/uL (0.0-0.2); BASOPHILS % (AUTO) 0.6 % (0.0-2.0); EOSINOPHILS % (AUTO) 5.2 % (0.0-6.0); HEMATOCRIT 35 % (39-51); HEMOGLOBIN 11.5 g/dL (13.5-17.5); LYMPHOCYTES # (AUTO) 2.3 K/uL (0.8-4.8); LYMPHOCYTES % (AUTO) 21.7 % (20.0-44.0); MEAN CORPUSCULAR HGB CONC 33 g/dl (31.0-36.0); MEAN CORPUSCULAR VOLUME 89 fL (80-96); MONOCYTES # (AUTO) 0.9 K/uL (0.1-1.30); MONOCYTES % (AUTO) 8.8 % (2.0-12.0); NEUTROPHILS # (AUTO) 6.9 K/uL (1.8-8.9); NEUTROPHILS % (AUTO) 63.7 % (43.0-81.0); PLATELET COUNT (AUTO) 620 K/uL (150-450); RED BLOOD CELL COUNT(AUTO) 3.94 MIL/uL (4.5-6.0); WHITE BLOOD COUNT (AUTO) 10.8 K/uL (4.3-11.0)
[2022-07-02] MEDS: PANTOPRAZOLE 40 MG TABLET.DR PO SCH (08:27)
[2022-07-02] MEDS: GLUCERNA SHAKE 237 ML CAN PO SCH ×3 (08:28→17:09)
[2022-07-02] MEDS: MULTIVIT W/MINERALS 1 TAB TABLET PO SCH (09:14)
[2022-07-02] MEDS: GABAPENTIN 100 MG CAPSULE PO SCH ×3 (09:15→17:08)
[2022-07-02] MEDS: LEVETIRACETAM (250 MG) 250 MG TABLET PO SCH ×2 (09:15→17:08)
[2022-07-02] MEDS: HYDROCODONE/APAP 5/325MG TABLET PO SCH (09:15)
[2022-07-02] MEDS: FERROUS SULFATE (325 MG) 325 MG/TAB TABLET PO SCH ×2 (09:16→17:07)
[2022-07-02] MEDS: CLOPIDOGREL BISULFATE 75 MG TABLET PO SCH (09:16)
[2022-07-02] MEDS: ASCORBIC ACID 500 MG TABLET PO SCH (09:16)
[2022-07-02] MEDS: FOLIC ACID 1 MG TABLET PO SCH (09:16)
[2022-07-02] MEDS: ZINC SULFATE 220 MG CAPSULE PO SCH (09:16)
[2022-07-02] MEDS: OLANZAPINE 2.5 MG TABLET PO SCH (09:16)
[2022-07-02] MEDS: POLYETHYLENE GLYCOL 3350 17 GM POWD.PACK PO SCH (09:17)
[2022-07-02] MEDS: CALCIUM CARBONATE (1250) 500 MG TABLET PO SCH (09:17)
[2022-07-02] MEDS: DOCUSATE SODIUM LIQ 100 MG/10 ML UDC PO SCH ×2 (09:17→17:09)
[2022-07-02] MEDS: VANCOMYCIN HCL 0.75 GM in IV D5W 250 ML IV SCH (09:17)
[2022-07-02] MEDS: ASPIRIN 81 MG TAB.CHEW PO SCH (09:17)
[2022-07-02] MEDS: PROSTAT (PYXIS) 30 ML UDC PO SCH ×3 (09:18→17:09)
[2022-07-02] MEDS: Z GUARD REMEDY 4 OZ OINT TP SCH (09:18)
[2022-07-02] MEDS: DAKINS HALF STRENGTH (0.25%) 480 ML BOTTLE TOP SCH (09:18)
[2022-07-02 09:27] LABS: CALCIUM, SERUM 7.9 mg/dL (8.5-10.1); CREATININE 0.9 mg/dL (0.6-1.3); POTASSIUM 4.3 mmol/L (3.5-5.1)
[2022-07-02] MEDS: TIMOLOL -XE 0.5% 5 ML BOTTLE EACHEYE SCH ×2 (09:34→17:15)
[2022-07-02] MEDS: FLUCONAZOLE (100 MG) 100 MG TABLET PO SCH (11:02)
[2022-07-02] MEDS: IV NS 0.9% 1,000 ML IV PRN (13:46)
--- NOTE | 2022-07-02 15:00 | NUR ---
Rn notes Patient is planned for OT for right BKA tomorrow. Coagulation profile has just been taken.
[2022-07-02 16:00] VITALS: BP 104/67
[2022-07-02] MEDS: INSULIN REGULAR, HUMAN 100 UNIT/ML 3 ML VIAL SQ PRN (17:12)
--- NOTE | 2022-07-02 18:49 | NUR ---
RN notes Patient is resting in bed without active complaint. Vital signs are normal this shift. Bed shower is done and skin care is provided to perineum, sacrum and back. Wound dressing was done to bilateral feet. IV sites are dry and intact, with NS running at 75mL/hr. Call desai is placed within reach. Bed is locked and placed in the lowest position. All safety measures have been implemented. Will endorse PM nurse to continue monitoring and care.
--- NOTE | 2022-07-02 19:35 | NUR ---
MS RN OPENING NOTES RECEIVED PATIENT IN ROOM ALERT AND ORIENTED X 4. ON RA TOLERATING WELL SATING >95%, WITH GASTRIC TUBE ATTACHED, CLAMPED. IV ACCESS ON LEFT AND RIGHT FOREARM 20 GAUGE RUNNING FLUIDS ORDERED. ISOLATION PRECAUTIONS IN PLACED, SAFETY MEASURES IMPLEMENTED, BED IN LOWEST AND LOCKED POSITION, BED ALARM ON, CALL LIGHT WITHIN REACH, WILL CONTINUE TO MONITOR PT THROUGHOUT THE SHIFT.
[2022-07-02 20:00] VITALS: BP_SYST 112; BP_SYST 119; BP_DIAS 61; BP_DIAS 67
[2022-07-02] MEDS: ATORVASTATIN 40 MG TABLET PO SCH (21:24)
[2022-07-02] MEDS: DEXTROSE 50%-WATER 50 ML DISP.SYRIN IV PRN (21:58)
--- NOTE | 2022-07-02 22:03 | NUR ---
RN NOTE NOTED PT BS AT 47 MG/DL. D5W BOLUS GIVEN, OFFERED 1 GLASS ORANGE JUICE. PT TOLERATED WELL.
--- NOTE | 2022-07-02 23:00 | NUR ---
RN NOTE PT BS RE CHECKED AT 140 MG/DL
[2022-07-03] MEDS: IV NS 0.9% 1,000 ML IV PRN ×3 (03:57→20:59)
[2022-07-03 04:00] VITALS: BP 125/71
[2022-07-03] MEDS: MEROPENEM 1 G in IV NS 0.9% 100 ML IV SCH ×3 (04:01→20:57)
--- NOTE | 2022-07-03 06:10 | NUR ---
RN NOTE CONDOM CATH REMOVED BY PATIENT. ATTEMPTED TO RE-INSERT PT REFUSED.
[2022-07-03 06:33] LABS: BASOPHILS # (AUTO) 0.1 K/uL (0.0-0.2); BASOPHILS % (AUTO) 0.9 % (0.0-2.0); EOSINOPHILS % (AUTO) 6.5 % (0.0-6.0); HEMATOCRIT 32 % (39-51); HEMOGLOBIN 10.5 g/dL (13.5-17.5); LYMPHOCYTES % (AUTO) 21.7 % (20.0-44.0); MEAN CORPUSCULAR HGB CONC 33 g/dl (31.0-36.0); MEAN CORPUSCULAR VOLUME 86 fL (80-96); MONOCYTES # (AUTO) 0.8 K/uL (0.1-1.30); NEUTROPHILS # (AUTO) 5.8 K/uL (1.8-8.9); NEUTROPHILS % (AUTO) 61.9 % (43.0-81.0); PLATELET COUNT (AUTO) 553 K/uL (150-450); RED BLOOD CELL COUNT(AUTO) 3.66 MIL/uL (4.5-6.0); WHITE BLOOD COUNT (AUTO) 9.4 K/uL (4.3-11.0)
--- NOTE | 2022-07-03 06:44 | NUR ---
MS RN CLOSING NOTES PATIENT REMAINS IN BED ALERT AND ORIENTED X 4. ON RA TOLERATING WELL SATING 99%, WITH GASTRIC TUBE ATTACHED, CLAMPED. IV ACCESS RIGHT FOREARM 20 GAUGE RUNNING FLUIDS ORDERED. ISOLATION PRECAUTIONS IN PLACED, PT ON NPO STATUS POST [place], SAFETY MEASURES IMPLEMENTED, BED IN LOWEST AND LOCKED POSITION, BED ALARM ON, CALL LIGHT WITHIN REACH, WILL ENDORSE TO AM SHIFT NURSE FOR CONTINUITY OF CARE.
[2022-07-03 06:59] LABS: CALCIUM, SERUM 7.7 mg/dL (8.5-10.1); CREATININE 0.8 mg/dL (0.6-1.3); POTASSIUM 3.6 mmol/L (3.5-5.1)
--- NOTE | 2022-07-03 07:00 | NUR ---
MS NOE CLOSING NOTES PATIENT REMAINS IN BED ALSEEP BREATHING EVELY AND UNLABORED. ON RA TOLERATING WELL SATING 99%, WITH GASTRIC TUBE ATTACHED, CLAMPED. IV ACCESS RIGHT FOREARM 20 GAUGE RUNNING FLUIDS ORDERED. ISOLATION PRECAUTIONS IN PLACED, PT ON NPO STATUS SINCE 0000 ON 07/03 FOR RIGHT BKA TODAY. SAFETY MEASURES IMPLEMENTED, BED IN LOWEST AND LOCKED POSITION, BED ALARM ON, CALL LIGHT WITHIN REACH, WILL CONTINUE PLAN OF CARE AND ANTICIPATE NEEDS. Addendum: 07/03/22 at 1823 by GEOVANY ARREOLA RN HEADER SHOULD READ "MS NOE OPENING NOTES"
[2022-07-03] MEDS: PANTOPRAZOLE 40 MG TABLET.DR PO SCH (07:30)
[2022-07-03 08:00] VITALS: BP 99/62
[2022-07-03] MEDS: GLUCERNA SHAKE 237 ML CAN PO SCH ×3 (08:00→16:22)
[2022-07-03] MEDS: FLUCONAZOLE (100 MG) 100 MG TABLET PO SCH (08:02)
[2022-07-03] MEDS: DOCUSATE SODIUM LIQ 100 MG/10 ML UDC PO SCH ×2 (08:02→16:22)
[2022-07-03] MEDS: ASPIRIN 81 MG TAB.CHEW PO SCH (08:02)
[2022-07-03] MEDS: FERROUS SULFATE (325 MG) 325 MG/TAB TABLET PO SCH ×2 (08:02→16:22)
[2022-07-03] MEDS: FOLIC ACID 1 MG TABLET PO SCH (08:03)
[2022-07-03] MEDS: LEVETIRACETAM (250 MG) 250 MG TABLET PO SCH ×2 (08:03→16:22)
[2022-07-03] MEDS: POLYETHYLENE GLYCOL 3350 17 GM POWD.PACK PO SCH (08:03)
[2022-07-03] MEDS: PROSTAT (PYXIS) 30 ML UDC PO SCH ×3 (08:04→16:23)
[2022-07-03] MEDS: ASCORBIC ACID 500 MG TABLET PO SCH (08:04)
[2022-07-03] MEDS: HYDROCODONE/APAP 5/325MG TABLET PO SCH (08:04)
[2022-07-03] MEDS: GABAPENTIN 100 MG CAPSULE PO SCH ×3 (08:04→16:22)
[2022-07-03] MEDS: ZINC SULFATE 220 MG CAPSULE PO SCH (08:04)
[2022-07-03] MEDS: CLOPIDOGREL BISULFATE 75 MG TABLET PO SCH (08:04)
[2022-07-03] MEDS: MULTIVIT W/MINERALS 1 TAB TABLET PO SCH (08:04)
[2022-07-03] MEDS: OLANZAPINE 2.5 MG TABLET PO SCH (08:04)
[2022-07-03] MEDS: CALCIUM CARBONATE (1250) 500 MG TABLET PO SCH (08:04)
[2022-07-03] MEDS: VANCOMYCIN HCL 0.75 GM in IV D5W 250 ML IV SCH (08:06)
[2022-07-03] MEDS: TIMOLOL -XE 0.5% 5 ML BOTTLE EACHEYE SCH ×2 (08:08→16:45)
[2022-07-03] MEDS: BLOOD SUGAR DIAGNOSTIC 1 EACH STRIP VI SCH ×4 (08:37→21:00)
[2022-07-03] MEDS ORDERED: IV NS 0.9% 1,000 ML IV ONE (09:00)
[2022-07-03] MEDS: DAKINS HALF STRENGTH (0.25%) 480 ML BOTTLE TOP SCH (09:23)
[2022-07-03] MEDS: Z GUARD REMEDY 4 OZ OINT TP SCH (09:24)
[2022-07-03] MEDS: EPOETIN ALFA-EPBX 4,000 UNIT/ML VIAL SQ SCH (14:05)
[2022-07-03 16:00] VITALS: BP 130/75
--- NOTE | 2022-07-03 18:23 | NUR ---
MS RN CLOSING NOTES PATIENT REMAINS IN BED ALSEEP BREATHING EVENLY AND UNLABORED. ON RA TOLERATING WELL SATING 99%, WITH GASTRIC TUBE ATTACHED, CLAMPED. IV ACCESS RIGHT FOREARM 20 GAUGE RUNNING FLUIDS ORDERED. PT ON NPO STATUS SINCE 0000 ON 07/03 FOR RIGHT BKA. SAFETY MEASURES IMPLEMENTED, BED IN LOWEST AND LOCKED POSITION, BED ALARM ON, CALL LIGHT WITHIN REACH, WILL ENDORSE TO NIGHTSHIFT RN FOR CONTINUATION OF CARE.
--- NOTE | 2022-07-03 19:40 | NUR ---
MS RN OPENING NOTES RECEIVED PATIENT IN ROOM ALERT AND ORIENTED X 4. ON RA TOLERATING WELL SATING >95%, WITH GASTRIC TUBE ATTACHED, CLAMPED. IV ACCESS ON RIGHT FOREARM 20 GAUGE RUNNING FLUIDS ORDERED. SAFETY MEASURES IMPLEMENTED, BED IN LOWEST AND LOCKED POSITION, BED ALARM ON, CALL LIGHT WITHIN REACH, WILL CONTINUE TO MONITOR PT THROUGHOUT THE SHIFT.
[2022-07-03 20:00] VITALS: BP 112/61
[2022-07-03] MEDS: ATORVASTATIN 40 MG TABLET PO SCH (21:00)
--- NOTE | 2022-07-03 23:00 | NUR ---
RN NOTE BS CHECKED AT 120 MG/DL, NO COVERAGE GIVEN PER SLIDING SCALE. WILL CONT TO MONITOR PT.
[2022-07-04 04:00] VITALS: BP 112/70
[2022-07-04] MEDS: MEROPENEM 1 G in IV NS 0.9% 100 ML IV SCH ×3 (04:08→21:01)
--- NOTE | 2022-07-04 06:44 | NUR ---
MS RN CLOSING NOTES PATIENT REMAINS IN BED ALERT AND ORIENTED X 4. ON RA TOLERATING WELL SATING 99%, WITH GASTRIC TUBE ATTACHED, CLAMPED. IV ACCESS RIGHT FOREARM 20 GAUGE AND LAC #22G RUNNING FLUIDS ORDERED. ALL DUE MEDS GIVEN, KEPT DRY AND CLEAN, PT ON NPO STATUS POST [place], SAFETY MEASURES IMPLEMENTED, BED IN LOWEST AND LOCKED POSITION, BED ALARM ON, CALL LIGHT WITHIN REACH, WILL ENDORSE TO AM SHIFT NURSE FOR CONTINUITY OF CARE.
[2022-07-04 07:04] LABS: CALCIUM, SERUM 7.6 mg/dL (8.5-10.1); CREATININE 0.7 mg/dL (0.6-1.3); POTASSIUM 3.1 mmol/L (3.5-5.1)
[2022-07-04] MEDS: PANTOPRAZOLE 40 MG TABLET.DR PO SCH (07:30)
[2022-07-04 08:00] VITALS: BP 125/72
[2022-07-04] MEDS ORDERED: POTASSIUM CHLORIDE 20 MEQ TAB.PRT.SR PO ONE (08:00)
[2022-07-04] MEDS: BLOOD SUGAR DIAGNOSTIC 1 EACH STRIP VI SCH ×4 (08:02→21:01)
[2022-07-04] MEDS: *INSULIN REGULAR(HUMULIN R)HUM 100 UNIT/ML VIAL SQ PRN (08:07)
--- NOTE | 2022-07-04 08:17 | NUR ---
RN NOTE CALLED DR MARIE'S OFFICE TO CONFIRM SURGERY FOR TODAY. AWAITING CONFIRMATION.
--- NOTE | 2022-07-04 08:46 | NUR ---
RN NOTE PER DR MARIE, SURGERY IS POSTPONED FOR 07/05/2022. NS @ 75MLS AFTER MIDNIGHT. NPO AFTER MIDNIGHT.
[2022-07-04] MEDS: GLUCERNA SHAKE 237 ML CAN PO SCH ×3 (08:59→17:22)
[2022-07-04] MEDS: Z GUARD REMEDY 4 OZ OINT TP SCH (09:00)
[2022-07-04] MEDS: DAKINS HALF STRENGTH (0.25%) 480 ML BOTTLE TOP SCH (09:00)
[2022-07-04] MEDS: PROSTAT (PYXIS) 30 ML UDC PO SCH ×3 (09:00→17:21)
[2022-07-04] MEDS: VANCOMYCIN HCL 0.75 GM in IV D5W 250 ML IV SCH (09:03)
[2022-07-04] MEDS: TIMOLOL -XE 0.5% 5 ML BOTTLE EACHEYE SCH ×2 (09:09→17:21)
[2022-07-04] MEDS: ASPIRIN 81 MG TAB.CHEW PO SCH (11:26)
[2022-07-04] MEDS: MULTIVIT W/MINERALS 1 TAB TABLET PO SCH (11:26)
[2022-07-04] MEDS: DOCUSATE SODIUM LIQ 100 MG/10 ML UDC PO SCH ×2 (11:26→17:21)
[2022-07-04] MEDS: FERROUS SULFATE (325 MG) 325 MG/TAB TABLET PO SCH ×2 (11:26→17:21)
[2022-07-04] MEDS: LEVETIRACETAM (250 MG) 250 MG TABLET PO SCH ×2 (11:27→17:22)
[2022-07-04] MEDS: POLYETHYLENE GLYCOL 3350 17 GM POWD.PACK PO SCH (11:27)
[2022-07-04] MEDS: GABAPENTIN 100 MG CAPSULE PO SCH ×3 (11:27→17:22)
[2022-07-04] MEDS: OLANZAPINE 2.5 MG TABLET PO SCH (11:28)
[2022-07-04] MEDS: CALCIUM CARBONATE (1250) 500 MG TABLET PO SCH (11:28)
[2022-07-04] MEDS: ZINC SULFATE 220 MG CAPSULE PO SCH (11:28)
[2022-07-04] MEDS: ASCORBIC ACID 500 MG TABLET PO SCH (11:28)
[2022-07-04] MEDS: CLOPIDOGREL BISULFATE 75 MG TABLET PO SCH (11:28)
[2022-07-04] MEDS: HYDROCODONE/APAP 5/325MG TABLET PO SCH (11:28)
[2022-07-04] MEDS: FLUCONAZOLE (100 MG) 100 MG TABLET PO SCH (11:28)
[2022-07-04] MEDS: FOLIC ACID 1 MG TABLET PO SCH (11:31)
[2022-07-04] MEDS ORDERED: ANESTHESIA TRAY IN PYXIS 1 EA TRAY MC ONE (12:59)
[2022-07-04] MEDS: IV NS 0.9% 1,000 ML IV PRN (13:33)
[2022-07-04] MEDS: INSULIN REGULAR, HUMAN 100 UNIT/ML 3 ML VIAL SQ PRN ×2 (13:38→17:56)
[2022-07-04 16:00] VITALS: BP 138/76
--- NOTE | 2022-07-04 19:15 | NUR ---
MS RN CLOSING NOTES PATIENT REMAINS IN BED ALERT AND ORIENTED X 4. ON RA TOLERATING WELL SATING 99%, WITH GASTRIC TUBE ATTACHED, CLAMPED. IV ACCESS RIGHT FOREARM 22 GAUGE AND LAC #22G RUNNING FLUIDS ORDERED. ALL DUE MEDS GIVEN, KEPT DRY AND CLEAN, PT ON NPO STATUS POST [place], SAFETY MEASURES IMPLEMENTED, BED IN LOWEST AND LOCKED POSITION, BED ALARM ON, CALL LIGHT WITHIN REACH, WILL ENDORSE TO SEE WHEELER NURSE
--- NOTE | 2022-07-04 19:40 | NUR ---
MS RN OPENING NOTES RECEIVED PATIENT IN ROOM ALERT AND ORIENTED X 3-4. ON RA TOLERATING WELL SATING >95%, WITH GASTRIC TUBE ATTACHED, CLAMPED. IV ACCESS ON RIGHT FOREARM #20G AND LAC #22G RUNNING FLUIDS ORDERED. SAFETY MEASURES IMPLEMENTED, BED IN LOWEST AND LOCKED POSITION, BED ALARM ON, CALL LIGHT WITHIN REACH, WILL CONTINUE TO MONITOR PT THROUGHOUT THE SHIFT.
[2022-07-04 20:00] VITALS: BP 106/68
[2022-07-04] MEDS: ATORVASTATIN 40 MG TABLET PO SCH (21:01)
--- NOTE | 2022-07-04 21:56 | NUR ---
RN NOTE BS CHECKED AT 78 MG/DL, NO COVERAGE GIVEN PER SLIDING SCALE. WILL CONT TO MONITOR.
[2022-07-05 04:00] VITALS: BP 139/64
[2022-07-05] MEDS: MEROPENEM 1 G in IV NS 0.9% 100 ML IV SCH ×3 (06:29→21:01)
[2022-07-05] MEDS: IV NS 0.9% 1,000 ML IV PRN ×2 (06:42→21:00)
--- NOTE | 2022-07-05 07:15 | NUR ---
Rn notes Received patient in bed, alert without active complaint. Left and right forearm IV sites are dry, intact and patent with NS running at 75mL/hr over the left site. No SOB noted. No lower limbs edema. Call desai is placed within reach. Bed is locked and placed in the lowest position. All safety measures have been implemented. Will continue monitor and care.
[2022-07-05 08:00] VITALS: BP 100/59
[2022-07-05] MEDS: GLUCERNA SHAKE 237 ML CAN PO SCH ×3 (08:00→17:21)
--- NOTE | 2022-07-05 08:00 | NUR ---
RN notes Patient is kept NPO for surgery. Blood sugar at 0730 is 158mmol/L, will not administer Humulin R due to his NPO status. Also omitted antiplatelets, prostat and glucerna. Keep observation.
[2022-07-05 08:10] LABS: CALCIUM, SERUM 7.7 mg/dL (8.5-10.1); CREATININE 0.9 mg/dL (0.6-1.3); POTASSIUM 3.9 mmol/L (3.5-5.1)
[2022-07-05] MEDS: ASCORBIC ACID 500 MG TABLET PO SCH (08:10)
[2022-07-05] MEDS: DOCUSATE SODIUM LIQ 100 MG/10 ML UDC PO SCH ×2 (08:10→17:21)
[2022-07-05] MEDS: FOLIC ACID 1 MG TABLET PO SCH (08:10)
[2022-07-05] MEDS: ZINC SULFATE 220 MG CAPSULE PO SCH (08:11)
[2022-07-05] MEDS: PANTOPRAZOLE 40 MG TABLET.DR PO SCH (08:11)
[2022-07-05] MEDS: MULTIVIT W/MINERALS 1 TAB TABLET PO SCH (08:11)
[2022-07-05] MEDS: FLUCONAZOLE (100 MG) 100 MG TABLET PO SCH (08:11)
[2022-07-05] MEDS: BLOOD SUGAR DIAGNOSTIC 1 EACH STRIP VI SCH ×4 (08:11→21:11)
[2022-07-05] MEDS: OLANZAPINE 2.5 MG TABLET PO SCH (08:11)
[2022-07-05] MEDS: LEVETIRACETAM (250 MG) 250 MG TABLET PO SCH ×2 (08:12→17:21)
[2022-07-05] MEDS: CALCIUM CARBONATE (1250) 500 MG TABLET PO SCH (08:13)
[2022-07-05] MEDS: HYDROCODONE/APAP 5/325MG TABLET PO SCH ×3 (08:13→10:26)
[2022-07-05] MEDS: FERROUS SULFATE (325 MG) 325 MG/TAB TABLET PO SCH ×2 (08:13→17:21)
[2022-07-05] MEDS: GABAPENTIN 100 MG CAPSULE PO SCH ×3 (08:13→17:21)
[2022-07-05] MEDS: DAKINS HALF STRENGTH (0.25%) 480 ML BOTTLE TOP SCH (08:14)
[2022-07-05] MEDS: POLYETHYLENE GLYCOL 3350 17 GM POWD.PACK PO SCH (08:14)
[2022-07-05] MEDS: TIMOLOL -XE 0.5% 5 ML BOTTLE EACHEYE SCH ×2 (08:14→17:24)
[2022-07-05] MEDS: VANCOMYCIN HCL 0.75 GM in IV D5W 250 ML IV SCH (08:15)
[2022-07-05] MEDS: Z GUARD REMEDY 4 OZ OINT TP SCH (08:15)
[2022-07-05 08:19] LABS: BASOPHILS # (AUTO) 0.1 K/uL (0.0-0.2); BASOPHILS % (AUTO) 0.7 % (0.0-2.0); EOSINOPHILS % (AUTO) 9.1 % (0.0-6.0); HEMATOCRIT 33 % (39-51); HEMOGLOBIN 10.6 g/dL (13.5-17.5); LYMPHOCYTES # (AUTO) 2.7 K/uL (0.8-4.8); LYMPHOCYTES % (AUTO) 25.1 % (20.0-44.0); MEAN CORPUSCULAR HGB CONC 32 g/dl (31.0-36.0); MEAN CORPUSCULAR VOLUME 87 fL (80-96); MONOCYTES # (AUTO) 0.8 K/uL (0.1-1.30); MONOCYTES % (AUTO) 7.7 % (2.0-12.0); NEUTROPHILS # (AUTO) 6.1 K/uL (1.8-8.9); NEUTROPHILS % (AUTO) 57.4 % (43.0-81.0); PLATELET COUNT (AUTO) 506 K/uL (150-450); RED BLOOD CELL COUNT(AUTO) 3.76 MIL/uL (4.5-6.0); WHITE BLOOD COUNT (AUTO) 10.7 K/uL (4.3-11.0)
[2022-07-05] MEDS: ASPIRIN 81 MG TAB.CHEW PO SCH (09:00)
[2022-07-05] MEDS: PROSTAT (PYXIS) 30 ML UDC PO SCH ×3 (09:00→17:21)
[2022-07-05] MEDS: CLOPIDOGREL BISULFATE 75 MG TABLET PO SCH (09:00)
[2022-07-05] MEDS ORDERED: LIDOCAINE HCL/MPF 1% 30 ML VIAL IJ ONE (10:20)
--- NOTE | 2022-07-05 11:16 | NUR ---
RN notes Hydrocodone was administered earlier at 0936 but noted that the system registered the administration twice. Only one dose has been given and reassessment showed that patient is in less pain over his bilateral feet and sacrum.
--- NOTE | 2022-07-05 13:20 | NUR ---
RN note OR colleague arrived and took patient to OT.
[2022-07-05] MEDS ORDERED: FENTANYL PF 100MCG/2ML AMPUL ONE ×2 (13:30→13:31)
[2022-07-05] MEDS ORDERED: ROCURONIUM BROMIDE 50 MG/5 ML ONE (13:30)
[2022-07-05 16:00] VITALS: BP 130/68
--- NOTE | 2022-07-05 16:06 | NUR ---
RN notes Patient returned from OR with Right BKA done. Surgical dressing is intact without oozing noted. Bulb drainage is in-situ and under suction. Bp 130/67mmHg, P 80/min. Temp 98.4. Will continue monitoring.
[2022-07-05] MEDS: EPOETIN ALFA-EPBX 4,000 UNIT/ML VIAL SQ SCH (16:25)
--- NOTE | 2022-07-05 16:30 | NUR ---
RN notes Contacted patient's sister about patient's return to the clinical unit. General condition explained to the sister, she showed understanding.
[2022-07-05] MEDS: INSULIN REGULAR, HUMAN 100 UNIT/ML 3 ML VIAL SQ PRN (17:24)
--- NOTE | 2022-07-05 18:41 | NUR ---
RN notes Patient is resting in bed without active complaint. Left wrist and left forearm IV sites are dry, intact and patent with NS running at 75mL/hr. Right BKA wound is intact and kept elevated. ~5mL of reddish fluid has been collected so far with good suction in the drain. Call desai is placed within reach. Bed is locked and placed in the lowest position. All safety measures have been implemented. Will continue monitor and care.
[2022-07-05 20:00] VITALS: BP 100/64
[2022-07-05] MEDS: ATORVASTATIN 40 MG TABLET PO SCH (21:16)
[2022-07-05] MEDS: *INSULIN REGULAR(HUMULIN R)HUM 100 UNIT/ML VIAL SQ PRN (21:16)
[2022-07-06] VITALS: BP 102/78
[2022-07-06 04:00] VITALS: BP 106/80
[2022-07-06] MEDS: MEROPENEM 1 G in IV NS 0.9% 100 ML IV SCH ×3 (04:34→21:47)
--- NOTE | 2022-07-06 07:30 | NUR ---
RN notes Patient is resting in bed without active complaint. Left wrist and left forearm IV sites are dry, intact and patent with NS running at 75mL/hr. Right BKA wound is intact and kept elevated. Good suction in the drain. Call desai is placed within reach. Bed is locked and placed in the lowest position. All safety measures have been implemented. Will continue monitor and care.
[2022-07-06 07:44] LABS: BASOPHILS % (AUTO) 0.3 % (0.0-2.0); EOSINOPHILS % (AUTO) 0.1 % (0.0-6.0); HEMATOCRIT 30 % (39-51); HEMOGLOBIN 9.6 g/dL (13.5-17.5); LYMPHOCYTES # (AUTO) 2.5 K/uL (0.8-4.8); MEAN CORPUSCULAR HGB CONC 32 g/dl (31.0-36.0); MEAN CORPUSCULAR VOLUME 88 fL (80-96); MONOCYTES # (AUTO) 0.6 K/uL (0.1-1.30); MONOCYTES % (AUTO) 3.6 % (2.0-12.0); NEUTROPHILS # (AUTO) 13.3 K/uL (1.8-8.9); PLATELET COUNT (AUTO) 472 K/uL (150-450); RED BLOOD CELL COUNT(AUTO) 3.42 MIL/uL (4.5-6.0); WHITE BLOOD COUNT (AUTO) 16.4 K/uL (4.3-11.0)
--- NOTE | 2022-07-06 07:46 | NUR ---
RN CLOSING NOTE A/OX3-4. ROOM AIR. NO C/O PAIN. MED SURG STATUS. PAKE RIGHT BKA INTACT, NO BLEEDING, JOSSELYN DRAIN OUTPUT SANGUINOUS, 50ML OUT. GT CLAMPED. IVF RUNNING. ABX GIVEN ORDERED. SUTURE REMOVAL KIT AT BEDSIDE.
[2022-07-06] MEDS: BLOOD SUGAR DIAGNOSTIC 1 EACH STRIP VI SCH ×4 (07:55→23:00)
[2022-07-06] MEDS: GLUCERNA SHAKE 237 ML CAN PO SCH ×3 (07:55→16:54)
[2022-07-06] MEDS: PANTOPRAZOLE 40 MG TABLET.DR PO SCH (07:55)
[2022-07-06 08:00] VITALS: BP 102/66
[2022-07-06 08:11] LABS: ALBUMIN 1.7 g/dL (3.4-5.0); BILIRUBIN,TOTAL 0.2 mg/dL (0.2-1.0); CALCIUM, SERUM 7.4 mg/dL (8.5-10.1); CREATININE 0.8 mg/dL (0.6-1.3); MAGNESIUM 1.7 mg/dL (1.8-2.4); POTASSIUM 3.8 mmol/L (3.5-5.1); TOTAL PROTEIN, SERUM 5.6 g/dL (6.4-8.2)
[2022-07-06] MEDS: PROSTAT (PYXIS) 30 ML UDC PO SCH ×3 (09:00→16:54)
[2022-07-06] MEDS: POLYETHYLENE GLYCOL 3350 17 GM POWD.PACK PO SCH (09:08)
[2022-07-06] MEDS: VANCOMYCIN HCL 0.75 GM in IV D5W 250 ML IV SCH (09:08)
[2022-07-06] MEDS: CLOPIDOGREL BISULFATE 75 MG TABLET PO SCH (09:09)
[2022-07-06] MEDS: ZINC SULFATE 220 MG CAPSULE PO SCH (09:09)
[2022-07-06] MEDS: CALCIUM CARBONATE (1250) 500 MG TABLET PO SCH (09:09)
[2022-07-06] MEDS: MULTIVIT W/MINERALS 1 TAB TABLET PO SCH (09:09)
[2022-07-06] MEDS: ASCORBIC ACID 500 MG TABLET PO SCH (09:09)
[2022-07-06] MEDS: FLUCONAZOLE (100 MG) 100 MG TABLET PO SCH (09:09)
[2022-07-06] MEDS: ASPIRIN 81 MG TAB.CHEW PO SCH (09:09)
[2022-07-06] MEDS: OLANZAPINE 2.5 MG TABLET PO SCH (09:09)
[2022-07-06] MEDS: FOLIC ACID 1 MG TABLET PO SCH (09:09)
[2022-07-06] MEDS: LEVETIRACETAM (250 MG) 250 MG TABLET PO SCH ×2 (09:09→16:53)
[2022-07-06] MEDS: HYDROCODONE/APAP 5/325MG TABLET PO SCH (09:09)
[2022-07-06] MEDS: FERROUS SULFATE (325 MG) 325 MG/TAB TABLET PO SCH ×2 (09:09→16:53)
[2022-07-06] MEDS: GABAPENTIN 100 MG CAPSULE PO SCH ×3 (09:09→16:53)
[2022-07-06] MEDS: Z GUARD REMEDY 4 OZ OINT TP SCH (09:10)
[2022-07-06] MEDS: DAKINS HALF STRENGTH (0.25%) 480 ML BOTTLE TOP SCH (09:10)
[2022-07-06] MEDS: TIMOLOL -XE 0.5% 5 ML BOTTLE EACHEYE SCH ×2 (09:10→16:54)
[2022-07-06] MEDS: DOCUSATE SODIUM LIQ 100 MG/10 ML UDC PO SCH ×2 (09:10→16:53)
[2022-07-06] MEDS ORDERED: K PHOS NEUTRAL 250 MG TABLET PO ONE (11:30)
[2022-07-06] MEDS: Magnesium 1GM/D5W 100ML PREMIX 100 ML IV SCH ×2 (12:26→12:30)
[2022-07-06] MEDS: IV NS 0.9% 1,000 ML IV PRN (15:00)
[2022-07-06 16:00] VITALS: BP 101/65
[2022-07-06] MEDS: INSULIN REGULAR, HUMAN 100 UNIT/ML 3 ML VIAL SQ PRN (16:57)
--- NOTE | 2022-07-06 19:18 | NUR ---
RN notes Patient is resting in bed without active complaint. Left wrist and left forearm IV sites are dry, intact and patent with NS running at 75mL/hr. Right BKA wound is intact and kept elevated. Collected 15mL reddish fluid in this shift. Dressing was done to left foot. Call desai is placed within reach. Bed is locked and placed in the lowest position. All safety measures have been implemented. Will continue monitor and care.
--- NOTE | 2022-07-06 19:59 | NUR ---
MS RN OPENING NOTE PATIENT AWAKE IN BED, ALERT/ORIENTED X 3, PT ABLE TO MAKE NEEDS KNOWN. PT STABLE ON RA, NO S/S OF DISTRESS OR SOB NOTED, BREATHING EVEN AND UNLABORED. IV ACCESS ON LEFT WRIST # 20G INTACT AND INFUSING NS @ 75 ML/HR. PATIENT S/P RIGHT BKA WITH JOSSELYN DRAIN, DRESSING CLEAN, DRY AND INTACT. LEFT FOOT DRESSING CLEAN DRY AND INTACT. PATIENT NOTED WITH CONDOM CATH. PATIENT HAS GT THAT IS CLAMPED, ABLE TO TAKE WHOLE PILLS PER DAYSHIFT RN. SAFETY MEASURES IN PLACE: CALL LIGHT WITHIN REACH, SIDE RAILS UP X 2, BED LOCKED IN LOWEST POSITION, HOB ELEVATED, BED ALARM ON. WILL CONTINUE TO MONITOR PATIENT
[2022-07-06 20:00] VITALS: BP 94/61
[2022-07-06] MEDS: ATORVASTATIN 40 MG TABLET PO SCH (21:47)
[2022-07-06] MEDS: *INSULIN REGULAR(HUMULIN R)HUM 100 UNIT/ML VIAL SQ PRN (23:01)
[2022-07-07 04:00] VITALS: BP 98/59
[2022-07-07] MEDS: MEROPENEM 1 G in IV NS 0.9% 100 ML IV SCH ×3 (05:57→21:33)
[2022-07-07] MEDS: IV NS 0.9% 1,000 ML IV PRN ×2 (05:57→22:25)
[2022-07-07 06:58] LABS: CALCIUM, SERUM 7.8 mg/dL (8.5-10.1); CREATININE 0.7 mg/dL (0.6-1.3); PHOSPHORUS 1.8 mg/dL (2.5-4.9); POTASSIUM 3.8 mmol/L (3.5-5.1)
[2022-07-07] MEDS: PANTOPRAZOLE 40 MG TABLET.DR PO SCH (07:58)
[2022-07-07 08:00] VITALS: BP 95/56
[2022-07-07] MEDS: BLOOD SUGAR DIAGNOSTIC 1 EACH STRIP VI SCH ×4 (08:08→22:16)
[2022-07-07] MEDS: VANCOMYCIN HCL 0.75 GM in IV D5W 250 ML IV SCH (08:09)
[2022-07-07] MEDS: GLUCERNA SHAKE 237 ML CAN PO SCH ×3 (08:09→16:16)
--- NOTE | 2022-07-07 08:23 | NUR ---
MS RN OPENING NOTE PATIENT SLEEPING IN BED, ALERT AND VERBALLY RESPONSIVE WHEN AWAKEN, PT ABLE TO MAKE NEEDS KNOWN. PT STABLE ON RA, NO S/S OF DISTRESS OR SOB NOTED, BREATHING EVEN AND UNLABORED. IV ACCESS ON LEFT WRIST QKE INTACT AND INFUSING NS @ 75 ML/HR. PATIENT S/P RIGHT BKA WITH JOSSELYN DRAIN, DRESSING CLEAN, DRY AND INTACT. LEFT FOOT DRESSING CLEAN DRY AND INTACT. PATIENT NOTED WITH CONDOM CATH. PATIENT HAS GT THAT IS CLAMPED, ABLE TO TAKE WHOLE PILLS PER DAYSHIFT RN. SAFETY MEASURES IN PLACE: CALL LIGHT WITHIN REACH, SIDE RAILS UP X 2, BED LOCKED IN LOWEST POSITION, HOB ELEVATED, BED ALARM ON. WILL CONTINUE TO MONITOR PATIENT Addendum: 07/07/22 at 0825 by STEPH COYNE RN WRONG ENTRY
--- NOTE | 2022-07-07 08:25 | NUR ---
MS RN OPENING NOTE PATIENT SLEEPING IN BED, ALERT AND VERBALLY RESPONSIVE WHEN AWAKEN, PT ABLE TO MAKE NEEDS KNOWN. PT STABLE ON RA, NO S/S OF DISTRESS OR SOB NOTED, BREATHING EVEN AND UNLABORED. IV ACCESS ON LEFT WRIST AND LEFT AC PATENT AND INTACT AND FLUSHES WELL, ON NS @ 75 ML/HR. PATIENT S/P RIGHT BKA WITH JOSSELYN DRAIN, DRESSING CLEAN, DRY AND INTACT. LEFT FOOT DRESSING CLEAN DRY AND INTACT. PATIENT NOTED WITH CONDOM CATH.NOTED WITH CLEAR YELLOW URINE OUTPUT. PATIENT HAS GT THAT IS CLAMPED. SAFETY MEASURES IN PLACE: CALL LIGHT WITHIN REACH, SIDE RAILS UP X 2, BED LOCKED IN LOWEST POSITION, HOB ELEVATED, BED ALARM ON. WILL CONTINUE PLAN OF CARE.
[2022-07-07] MEDS: Z GUARD REMEDY 4 OZ OINT TP SCH (09:00)
[2022-07-07] MEDS: DAKINS HALF STRENGTH (0.25%) 480 ML BOTTLE TOP SCH (09:00)
[2022-07-07] MEDS: PROSTAT (PYXIS) 30 ML UDC PO SCH ×3 (09:00→16:15)
[2022-07-07] MEDS: CLOPIDOGREL BISULFATE 75 MG TABLET PO SCH (09:00)
[2022-07-07] MEDS: TIMOLOL -XE 0.5% 5 ML BOTTLE EACHEYE SCH ×2 (09:00→16:16)
[2022-07-07] MEDS: ASPIRIN 81 MG TAB.CHEW PO SCH (09:00)
[2022-07-07] MEDS ORDERED: K PHOS NEUTRAL 250 MG TABLET PO ONE ×2 (10:00→11:00)
[2022-07-07] MEDS: ZINC SULFATE 220 MG CAPSULE PO SCH (10:13)
[2022-07-07] MEDS: MULTIVIT W/MINERALS 1 TAB TABLET PO SCH (10:13)
[2022-07-07] MEDS: OLANZAPINE 2.5 MG TABLET PO SCH (10:13)
[2022-07-07] MEDS: FLUCONAZOLE (100 MG) 100 MG TABLET PO SCH (10:13)
[2022-07-07] MEDS: HYDROCODONE/APAP 5/325MG TABLET PO SCH (10:13)
[2022-07-07] MEDS: POLYETHYLENE GLYCOL 3350 17 GM POWD.PACK PO SCH (10:13)
[2022-07-07] MEDS: ASCORBIC ACID 500 MG TABLET PO SCH (10:13)
[2022-07-07] MEDS: FOLIC ACID 1 MG TABLET PO SCH (10:13)
[2022-07-07] MEDS: GABAPENTIN 100 MG CAPSULE PO SCH ×3 (10:13→16:15)
[2022-07-07] MEDS: DOCUSATE SODIUM LIQ 100 MG/10 ML UDC PO SCH ×2 (10:14→16:15)
[2022-07-07] MEDS: LEVETIRACETAM (250 MG) 250 MG TABLET PO SCH ×2 (10:14→16:15)
[2022-07-07] MEDS: CALCIUM CARBONATE (1250) 500 MG TABLET PO SCH (10:14)
[2022-07-07] MEDS: FERROUS SULFATE (325 MG) 325 MG/TAB TABLET PO SCH ×2 (10:15→16:15)
[2022-07-07] MEDS: EPOETIN ALFA-EPBX 4,000 UNIT/ML VIAL SQ SCH (14:49)
--- NOTE | 2022-07-07 15:12 | NUR ---
MS RN NOTES PATIENT SEEN BY MD RENA[facility]
[2022-07-07 16:00] VITALS: BP 119/91
--- NOTE | 2022-07-07 19:10 | NUR ---
MS RN OPENING NOTES RECEIVED PATIENT IN BED A/OX 3-4. ON RA TOLERATING WELL NO S/S OF DISTRESS, , G TUBE ATTACHED, CLAMPED. IV ACCESS ON RIGHT FOREARM #20G AND LAC #22G RUNNING FLUIDS ORDERED. ALL SAFETY MEASURES IN PLACE: BED LOCKED AND IN LOWEST POSITION, CALL LIGHT WITHIN REACH, SIDE RAILS UP. NOTED ON BILATERAL WRIST RESTRAINT, CHECK FOR CIRCULATION AND SKIN. WILL CONTINUE PLAN OF CARE.
--- NOTE | 2022-07-07 19:50 | NUR ---
MS RN CLOSING NOTE PATIENT SLEEPING IN BED, ALERT AND VERBALLY RESPONSIVE WHEN AWAKEN, PT ABLE TO MAKE NEEDS KNOWN. PT STABLE ON RA, NO S/S OF DISTRESS OR SOB NOTED, BREATHING EVEN AND UNLABORED. IV ACCESS ON LEFT WRIST AND LEFT AC PATENT AND INTACT AND FLUSHES WELL, ON NS @ 75 ML/HR. PATIENT S/P RIGHT BKA DRESSING CLEAN, DRY AND INTACT. LEFT FOOT DRESSING CLEAN DRY AND INTACT. PATIENT NOTED WITH CONDOM CATH.NOTED WITH CLEAR YELLOW URINE OUTPUT. PATIENT HAS GT THAT IS CLAMPED. SAFETY MEASURES IN PLACE: CALL LIGHT WITHIN REACH, SIDE RAILS UP X 2, BED LOCKED IN LOWEST POSITION, HOB ELEVATED, BED ALARM ON. ENDORSED TO OIL FILTERS INSPECTOR NURSE FOR HALI.
[2022-07-07 20:00] VITALS: BP 113/70
[2022-07-07] MEDS: ATORVASTATIN 40 MG TABLET PO SCH (21:33)
[2022-07-07] MEDS: *INSULIN REGULAR(HUMULIN R)HUM 100 UNIT/ML VIAL SQ PRN (22:16)
[2022-07-08 04:00] VITALS: BP 119/81
[2022-07-08] MEDS: MEROPENEM 1 G in IV NS 0.9% 100 ML IV SCH ×3 (04:12→22:37)
--- NOTE | 2022-07-08 06:42 | NUR ---
RN CLOSING NOTE PT SLEEPING IN BED. NO SIGNIFICANT CHANGE T/O THE NIGHT. VS STABLE. ALL DUE MEDS GIVEN. PM CARE DONE, TURN AND REPOSITIONED. WILL ENDORSE TO AM SHIFT FOR HALI.
--- NOTE | 2022-07-08 07:20 | NUR ---
RN NOTE RECEIVED PATIENT IN BED RESTING ALERT ORIENTED X4 VERBALLY RESPONSIVE ON 2L OXYGEN VIA NASAL CANNULA O2:96% AT NIGHT TIME BIPAP.IV SITE IS ON LEFT FOREARM INTACT PATENT AND RIGHT ARM AV SHUNT.CONTIENT BOWEL,SAFETY MEASURE IMPLEMENT BED IN LOW POSITION AND LOCKED,CALL LIGHT WITHIN REACH,HEAD OF THE BED ELEVATED, CONTINUE TO MONITOR. Addendum: 07/08/22 at 1528 by LINDA SARGENT RN pls disregard this not wrong documentation.
--- NOTE | 2022-07-08 07:20 | NUR ---
RN NOTE RECEIVED PATIENT IN BED RESTING,ALERT ORIENTED X3-4 VERBALLY RESPONSIVE ON ROOM AIR O2:95% IV SITE IS ON LEFT AC INTACT PATENT AND LEFT WRIST INTACT PATENT ON IV HYDRATION NS 75CC/HR,INCONTINENT BOWEL/BLADDER SAFETY MEASURE IMPLEMENT BED IN LOW POSITION AND LOCKED CALL LIGHT WITHIN REACH,HEAD OF THE BED ELEVATED CONTINUE TO MONITOR
--- NOTE | 2022-07-08 07:30 | NUR ---
RN NOTE PT BS 48 RECHECK AGAIN 47 D50 PRN PER PROTOCOL GIVEN WILL CHECK BLOOD SUGAR IN 15 MINS.
[2022-07-08] MEDS: DEXTROSE 50%-WATER 50 ML DISP.SYRIN IV PRN (07:32)
[2022-07-08] MEDS: BLOOD SUGAR DIAGNOSTIC 1 EACH STRIP VI SCH ×4 (07:37→22:58)
[2022-07-08 07:55] LABS: CALCIUM, SERUM 7.5 mg/dL (8.5-10.1); CREATININE 0.7 mg/dL (0.6-1.3); POTASSIUM 3.3 mmol/L (3.5-5.1)
[2022-07-08] MEDS: PANTOPRAZOLE 40 MG TABLET.DR PO SCH (07:59)
[2022-07-08 08:00] VITALS: BP 90/62
[2022-07-08] MEDS: GLUCERNA SHAKE 237 ML CAN PO SCH ×3 (08:01→17:29)
[2022-07-08] MEDS: FERROUS SULFATE (325 MG) 325 MG/TAB TABLET PO SCH ×3 (08:24→16:54)
[2022-07-08] MEDS: GABAPENTIN 100 MG CAPSULE PO SCH ×4 (08:24→16:55)
[2022-07-08] MEDS: LEVETIRACETAM (250 MG) 250 MG TABLET PO SCH ×3 (08:24→16:55)
[2022-07-08] MEDS: FOLIC ACID 1 MG TABLET PO SCH ×2 (08:24→09:00)
[2022-07-08] MEDS: FLUCONAZOLE (100 MG) 100 MG TABLET PO SCH ×2 (08:24→09:00)
[2022-07-08] MEDS: ZINC SULFATE 220 MG CAPSULE PO SCH ×2 (08:24→09:00)
[2022-07-08] MEDS: CALCIUM CARBONATE (1250) 500 MG TABLET PO SCH ×2 (08:24→09:00)
[2022-07-08] MEDS: MULTIVIT W/MINERALS 1 TAB TABLET PO SCH ×2 (08:24→09:00)
[2022-07-08] MEDS: DOCUSATE SODIUM LIQ 100 MG/10 ML UDC PO SCH ×3 (08:25→17:00)
[2022-07-08] MEDS: CLOPIDOGREL BISULFATE 75 MG TABLET PO SCH ×2 (08:25→09:00)
[2022-07-08] MEDS: ASPIRIN 81 MG TAB.CHEW PO SCH ×2 (08:25→09:00)
[2022-07-08] MEDS: POLYETHYLENE GLYCOL 3350 17 GM POWD.PACK PO SCH ×2 (08:25→09:00)
[2022-07-08] MEDS: OLANZAPINE 2.5 MG TABLET PO SCH ×2 (08:25→09:00)
[2022-07-08] MEDS: HYDROCODONE/APAP 5/325MG TABLET PO SCH ×3 (08:25→08:58)
[2022-07-08] MEDS: ASCORBIC ACID 500 MG TABLET PO SCH ×2 (08:25→09:00)
[2022-07-08] MEDS: Z GUARD REMEDY 4 OZ OINT TP SCH (08:29)
[2022-07-08] MEDS: DAKINS HALF STRENGTH (0.25%) 480 ML BOTTLE TOP SCH (08:30)
[2022-07-08] MEDS: TIMOLOL -XE 0.5% 5 ML BOTTLE EACHEYE SCH ×3 (08:32→16:54)
[2022-07-08] MEDS: PROSTAT (PYXIS) 30 ML UDC PO SCH ×4 (08:33→16:58)
[2022-07-08] MEDS ORDERED: POTASSIUM CHLORIDE 20 MEQ TAB.PRT.SR PO SCH (10:00)
--- NOTE | 2022-07-08 10:00 | NUR ---
RN NOTE INSULIN NOT GIVEN DUE TO HYPOGLYCEMIA FOR THIS MORNING,CONTINUE TO MONITOR.
[2022-07-08] MEDS: VANCOMYCIN 500 MG in IV D5W 100ml IV SCH ×2 (10:58→23:24)
[2022-07-08 12:29] LABS: BASOPHILS # (AUTO) 0.1 K/uL (0.0-0.2); BASOPHILS % (AUTO) 0.7 % (0.0-2.0); EOSINOPHILS % (AUTO) 2.8 % (0.0-6.0); HEMATOCRIT 28 % (39-51); LYMPHOCYTES # (AUTO) 3.4 K/uL (0.8-4.8); LYMPHOCYTES % (AUTO) 20.1 % (20.0-44.0); MEAN CORPUSCULAR HGB CONC 32 g/dl (31.0-36.0); MEAN CORPUSCULAR VOLUME 87 fL (80-96); MONOCYTES # (AUTO) 1.2 K/uL (0.1-1.30); MONOCYTES % (AUTO) 7.3 % (2.0-12.0); NEUTROPHILS # (AUTO) 11.6 K/uL (1.8-8.9); NEUTROPHILS % (AUTO) 69.1 % (43.0-81.0); PLATELET COUNT (AUTO) 430 K/uL (150-450); RED BLOOD CELL COUNT(AUTO) 3.26 MIL/uL (4.5-6.0); WHITE BLOOD COUNT (AUTO) 16.7 K/uL (4.3-11.0)
[2022-07-08 16:00] VITALS: BP 102/53
[2022-07-08] MEDS: IV NS 0.9% 1,000 ML IV PRN (16:01)
--- NOTE | 2022-07-08 18:21 | NUR ---
RN NOTE PATIENT REMANS ALERT ORIENTED X3-4 VERBALLY RESPONSIVE ON ROOM AIR O2:97% NO SOB NOT ACUTE DISTRESS NOTED,KEPT CLEAN AND DRY ALL THE TIME,KEPT CALL LIGHT WITHIN REACH,HE REFUSED MORNING MEDS,BUT HE TOOK ALL AFTERNOON MEDS,INCONTINENT BOWEL/BLADDER,KEPT HEAD OF THE BED ELEVATED,WILL ENDORSE NEXT COMING SHIFT FOR CONTINUATION OF CARE
--- NOTE | 2022-07-08 19:56 | NUR ---
RN OPENING NOTES RECEIVED PT IN BED, AWAKE, LISTENING TO TV. AOx3, ABLE TO MAKE NEEDS KNOWN AND BLIND. ON RA AND TOLERATING WELL. NO SOB NOTED. NO S/SX OF RESPIRATORY DISTRESS NOTED. IV ACCESS IN LAC AND L WRIST RUNNING NS @ 75 ML/HR. SAFETY PRECAUTIONS IN PLACE: BED IN LOWEST, LOCKED POSITION, SIDERAILS UPx2, AND BRAKES ON. TABLE AND CALL LIGHT WITHIN REACH. ALL NEEDS MET AT THIS TIME.
[2022-07-08 20:00] VITALS: BP 90/54
[2022-07-08] MEDS: ATORVASTATIN 40 MG TABLET PO SCH (22:37)
[2022-07-08] MEDS: *INSULIN REGULAR(HUMULIN R)HUM 100 UNIT/ML VIAL SQ PRN (23:06)
[2022-07-08] MEDS: ACETAMINOPHEN 325 MG TABLET PO PRN (23:07)
[2022-07-09 04:00] VITALS: BP 92/56
[2022-07-09] MEDS: MEROPENEM 1 G in IV NS 0.9% 100 ML IV SCH ×3 (04:30→21:24)
[2022-07-09] MEDS: IV NS 0.9% 1,000 ML IV PRN ×2 (04:30→19:34)
--- NOTE | 2022-07-09 07:09 | NUR ---
RN CLOSING NOTES PT IN BED, AWAKE, LISTENING TO TV. AOx3, ABLE TO MAKE NEEDS KNOWN AND BLIND. ON RA AND TOLERATING WELL. NO SOB NOTED. NO S/SX OF RESPIRATORY DISTRESS NOTED. IV ACCESS IN LAC AND L WRIST RUNNING NS @ 75 ML/HR. ALL ORDERS CARRIED OUT. ALL NEEDS MET. PT KEPT CLEAN AND DRY. SAFETY PRECAUTIONS IN PLACE: BED IN LOWEST, LOCKED POSITION, SIDERAILS UPx2, AND BRAKES ON. TABLE AND CALL LIGHT WITHIN REACH. WILL ENDORSE TO ONCOMING SHIFT FOR HALI.
[2022-07-09 07:34] LABS: CALCIUM, SERUM 7.1 mg/dL (8.5-10.1); CREATININE 0.7 mg/dL (0.6-1.3); POTASSIUM 3.5 mmol/L (3.5-5.1)
--- NOTE | 2022-07-09 07:46 | NUR ---
RN OPENING NOTES RECEIVED PATIENT SLEEPING, ALERT AND VERBALLY RESPONSIVE WHEN AWAKEN, AOx3, ABLE TO MAKE NEEDS KNOWN AND BLIND. ON RA AND TOLERATING WELL. NO SOB NOTED. NO S/SX OF RESPIRATORY DISTRESS NOTED. IV ACCESS IN LAC AND L WRIST RUNNING NS @ 75 ML/HR. ALL NEEDS MET. PT KEPT CLEAN AND DRY. SAFETY PRECAUTIONS IN PLACE: BED IN LOWEST, LOCKED POSITION, SIDERAILS UPx2, AND BRAKES ON. TABLE AND CALL LIGHT WITHIN REACH. WILL CONTINUE PLAN OF CARE.
[2022-07-09 08:00] VITALS: BP 90/55
[2022-07-09] MEDS: BLOOD SUGAR DIAGNOSTIC 1 EACH STRIP VI SCH ×4 (08:00→21:40)
[2022-07-09] MEDS: GLUCERNA SHAKE 237 ML CAN PO SCH ×3 (08:48→16:20)
[2022-07-09] MEDS: DOCUSATE SODIUM LIQ 100 MG/10 ML UDC PO SCH ×2 (08:54→16:19)
[2022-07-09] MEDS: POLYETHYLENE GLYCOL 3350 17 GM POWD.PACK PO SCH (08:54)
[2022-07-09] MEDS: FLUCONAZOLE (100 MG) 100 MG TABLET PO SCH (08:54)
[2022-07-09] MEDS: FOLIC ACID 1 MG TABLET PO SCH (08:54)
[2022-07-09] MEDS: ASCORBIC ACID 500 MG TABLET PO SCH (08:54)
[2022-07-09] MEDS: OLANZAPINE 2.5 MG TABLET PO SCH (08:55)
[2022-07-09] MEDS: LEVETIRACETAM (250 MG) 250 MG TABLET PO SCH ×2 (08:55→16:19)
[2022-07-09] MEDS: HYDROCODONE/APAP 5/325MG TABLET PO SCH (08:55)
[2022-07-09] MEDS: CALCIUM CARBONATE (1250) 500 MG TABLET PO SCH (08:55)
[2022-07-09] MEDS: FERROUS SULFATE (325 MG) 325 MG/TAB TABLET PO SCH ×2 (08:55→16:19)
[2022-07-09] MEDS: PANTOPRAZOLE 40 MG TABLET.DR PO SCH (08:56)
[2022-07-09] MEDS: ASPIRIN 81 MG TAB.CHEW PO SCH (08:56)
[2022-07-09] MEDS: GABAPENTIN 100 MG CAPSULE PO SCH ×3 (08:56→16:19)
[2022-07-09] MEDS: ZINC SULFATE 220 MG CAPSULE PO SCH (08:56)
[2022-07-09] MEDS: MULTIVIT W/MINERALS 1 TAB TABLET PO SCH (08:56)
[2022-07-09] MEDS: TIMOLOL -XE 0.5% 5 ML BOTTLE EACHEYE SCH ×2 (08:57→16:20)
[2022-07-09] MEDS: DAKINS HALF STRENGTH (0.25%) 480 ML BOTTLE TOP SCH (08:57)
[2022-07-09] MEDS: PROSTAT (PYXIS) 30 ML UDC PO SCH ×3 (08:57→16:20)
[2022-07-09] MEDS: Z GUARD REMEDY 4 OZ OINT TP SCH (08:58)
[2022-07-09] MEDS: CLOPIDOGREL BISULFATE 75 MG TABLET PO SCH (09:00)
[2022-07-09] MEDS: VANCOMYCIN 500 MG in IV D5W 100ml IV SCH ×2 (10:53→23:39)
[2022-07-09] MEDS: INSULIN REGULAR, HUMAN 100 UNIT/ML 3 ML VIAL SQ PRN ×2 (15:32→18:16)
[2022-07-09 16:00] VITALS: BP 117/71
--- NOTE | 2022-07-09 18:51 | NUR ---
RN CLOSING NOTES RECEIVED PATIENT SLEEPING, ALERT AND VERBALLY RESPONSIVE WHEN AWAKEN, AOx3, ABLE TO MAKE NEEDS KNOWN AND BLIND. ON RA AND TOLERATING WELL. NO SOB NOTED. NO S/SX OF RESPIRATORY DISTRESS NOTED. IV ACCESS IN L WRIST NOTED PATENT AND INTACT, FLUSHES WELL, RUNNING NS @ 75 ML/HR. BLE WOUND DRESSING NOTED C/D/I. RIGHT BKA IMMOBILIZER INTACT. ALL NEEDS MET. PT KEPT CLEAN AND DRY. SAFETY PRECAUTIONS IN PLACE: BED IN LOWEST, LOCKED POSITION, SIDERAILS UPx2, AND BRAKES ON. TABLE AND CALL LIGHT WITHIN REACH. WILL ENDORSE TO NIGHT NURSE.
[2022-07-09 20:00] VITALS: BP 99/63
[2022-07-09] MEDS: ATORVASTATIN 40 MG TABLET PO SCH (21:23)
[2022-07-09] MEDS: *INSULIN REGULAR(HUMULIN R)HUM 100 UNIT/ML VIAL SQ PRN (21:44)
--- NOTE | 2022-07-09 23:33 | NUR ---
MS RN OPENING NOTE PT RECEIVED IN BED, AWAKE, A&O X4, CALM, COOPERATIVE. PT ON RA WITH CURRENT O2SAT OF 98%; NO S/S OF RESP DISTRESS, NO SOB OR COUGH, NON-LABORED AND EQUAL BREATHING. VSS, WILL CONTINUE TO MONITOR NEEDED. IV ACCESS ON LEFT WRIST 18G, INTACT AND PATENT, FLUSHES EASILY WITH NO RESISTANCE NS INFUSING AT 75 ML/HR. BED IN LOWEST POSITION, CALL LIGHT WITHIN REACH, SIDE RAILS UP X3. WILL CONTINUE TO MONITOR THROUGHOUT THE NIGHT.
[2022-07-10 04:00] VITALS: BP 109/72
[2022-07-10] MEDS: MEROPENEM 1 G in IV NS 0.9% 100 ML IV SCH ×3 (05:07→21:36)
[2022-07-10 06:51] LABS: CALCIUM, SERUM 7.2 mg/dL (8.5-10.1); POTASSIUM 4.3 mmol/L (3.5-5.1)
--- NOTE | 2022-07-10 06:53 | NUR ---
MS RN CLOSING NOTE PT REMAINS IN BED, ASLEEP, BUT EASILY AROUSABLE, A&O X4, CALM, COOPERATIVE. CONTINUES TO BE ON RA WITH O2SAT RANGING FROM 97%- 98%; NOTED TO HAVE NON-PRODUCTIVE COUGH; OTHERWISE NO OTHER S/S OF RESP DISTRESS, NO SOB, NON-LABORED AND EQUAL BREATHING. VSS THROUGHOUT THE NIGHT WITH NO SIGNIFICANT CHANGES. IV ACCESS ON LEFT WRIST 18G, INTACT AND PATENT, FLUSHES EASILY WITH NO RESISTANCE NS INFUSING AT 75 ML/HR. ALL DUE MEDS ADMINISTERED DURING THE NIGHT. BED IN LOWEST POSITION, CALL LIGHT WITHIN REACH, SIDE RAILS UP X3. WILL ENDORSE TO DAYSHIFT NURSE TO CONTINUE CARE.
--- NOTE | 2022-07-10 07:05 | NUR ---
RN NOTES RECEIVED PT ON BED, AWAKE, A&O X4, CALM, COOPERATIVE. PT ON RA WITH CURRENT O2 SAT WNL, NO DISTESS NOTED, IV ACCESS ON LEFT WRIST 18G, CDI, NS INFUSING AT 75 ML/HR. BED IN LOWEST POSITION, CALL LIGHT WITHIN EASY REACH, BED LOCKED AND IN LOWEST POSITION, SIDE RAILS UP X3. WILL CONTINUE TO MONITOR .
[2022-07-10] MEDS: BLOOD SUGAR DIAGNOSTIC 1 EACH STRIP VI SCH ×4 (07:39→22:44)
[2022-07-10 08:00] VITALS: BP 98/63
[2022-07-10] MEDS: FOLIC ACID 1 MG TABLET PO SCH (08:19)
[2022-07-10] MEDS: PANTOPRAZOLE 40 MG TABLET.DR PO SCH (08:19)
[2022-07-10] MEDS: FERROUS SULFATE (325 MG) 325 MG/TAB TABLET PO SCH ×2 (08:19→16:54)
[2022-07-10] MEDS: HYDROCODONE/APAP 5/325MG TABLET PO SCH (08:19)
[2022-07-10] MEDS: POLYETHYLENE GLYCOL 3350 17 GM POWD.PACK PO SCH (08:19)
[2022-07-10] MEDS: MULTIVIT W/MINERALS 1 TAB TABLET PO SCH (08:19)
[2022-07-10] MEDS: CLOPIDOGREL BISULFATE 75 MG TABLET PO SCH (08:19)
[2022-07-10] MEDS: ASPIRIN 81 MG TAB.CHEW PO SCH (08:19)
[2022-07-10] MEDS: GABAPENTIN 100 MG CAPSULE PO SCH ×3 (08:20→16:54)
[2022-07-10] MEDS: CALCIUM CARBONATE (1250) 500 MG TABLET PO SCH (08:20)
[2022-07-10] MEDS: DOCUSATE SODIUM LIQ 100 MG/10 ML UDC PO SCH ×2 (08:20→16:53)
[2022-07-10] MEDS: FLUCONAZOLE (100 MG) 100 MG TABLET PO SCH (08:20)
[2022-07-10] MEDS: ASCORBIC ACID 500 MG TABLET PO SCH (08:20)
[2022-07-10] MEDS: LEVETIRACETAM (250 MG) 250 MG TABLET PO SCH ×2 (08:20→16:54)
[2022-07-10] MEDS: OLANZAPINE 2.5 MG TABLET PO SCH (08:20)
[2022-07-10] MEDS: GLUCERNA SHAKE 237 ML CAN PO SCH ×3 (08:21→16:57)
[2022-07-10] MEDS: TIMOLOL -XE 0.5% 5 ML BOTTLE EACHEYE SCH ×2 (08:22→16:53)
[2022-07-10] MEDS: Z GUARD REMEDY 4 OZ OINT TP SCH (08:22)
[2022-07-10] MEDS: DAKINS HALF STRENGTH (0.25%) 480 ML BOTTLE TOP SCH (08:22)
[2022-07-10] MEDS: ZINC SULFATE 220 MG CAPSULE PO SCH (08:22)
[2022-07-10] MEDS: PROSOURCE / PROSTAT (PYXIS) 30 ML UDC PO SCH ×3 (08:34→16:54)
[2022-07-10] MEDS: VANCOMYCIN 500 MG in IV D5W 100ml IV SCH ×2 (11:18→23:24)
[2022-07-10] MEDS: IV NS 0.9% 1,000 ML IV PRN (11:23)
[2022-07-10] MEDS: INSULIN REGULAR, HUMAN 100 UNIT/ML 3 ML VIAL SQ PRN ×2 (11:32→16:56)
[2022-07-10 12:51] LABS: BASOPHILS # (AUTO) 0.2 K/uL (0.0-0.2); BASOPHILS % (AUTO) 1.1 % (0.0-2.0); EOSINOPHILS % (AUTO) 6.9 % (0.0-6.0); HEMATOCRIT 29 % (39-51); LYMPHOCYTES # (AUTO) 2.4 K/uL (0.8-4.8); LYMPHOCYTES % (AUTO) 18.1 % (20.0-44.0); MEAN CORPUSCULAR HGB CONC 32 g/dl (31.0-36.0); MEAN CORPUSCULAR VOLUME 88 fL (80-96); MONOCYTES % (AUTO) 7.3 % (2.0-12.0); NEUTROPHILS # (AUTO) 8.9 K/uL (1.8-8.9); NEUTROPHILS % (AUTO) 66.6 % (43.0-81.0); PLATELET COUNT (AUTO) 422 K/uL (150-450); RED BLOOD CELL COUNT(AUTO) 3.25 MIL/uL (4.5-6.0); WHITE BLOOD COUNT (AUTO) 13.5 K/uL (4.3-11.0)
--- NOTE | 2022-07-10 14:00 | NUR ---
RN NOTES REPORT GIVEN TO SNF AT [facility], [place], WOUND PHOTO TAKEN, CONTINUE TO MONITOR.
[2022-07-10] MEDS: EPOETIN ALFA-EPBX 4,000 UNIT/ML VIAL SQ SCH (14:39)
[2022-07-10 16:00] VITALS: BP 96/64
--- NOTE | 2022-07-10 18:32 | NUR ---
RN NOTES PT WAITING FOR AMBULANCE DISCHARGE TO SNF, PT STABLE, NO DISTESS NOTED
[2022-07-10 20:00] VITALS: BP 94/66
--- NOTE | 2022-07-10 20:20 | NUR ---
RN NOTE SPOKE TO CALL THE CAR [employer] WITH RESERVATION #[id number]; WAS TOLD THAT SERVICE WAS SCHEDULED FOR TOMORROW 07/11, BUT WOULD WORK ON GETTING NEW SERVICE. NEW RESERVATION #[id number]. WILL WAIT FOR UPDATE.
[2022-07-10] MEDS: ATORVASTATIN 40 MG TABLET PO SCH (21:36)
[2022-07-10] MEDS: *INSULIN REGULAR(HUMULIN R)HUM 100 UNIT/ML VIAL SQ PRN (22:46)
--- NOTE | 2022-07-11 00:34 | NUR ---
RN NOTE EMT CREW ARRIVED TO UNIT. REPORT GIVEN TO EMT CREW ALONG WITH DC PACKET AND COPY OF FACESHEET AND BELONGINGS LIST. VSS WITH NO SIGNIFICANT FINDINGS. ALL BELONGINGS CHECKED AND ACCOUNTED FOR. PT LEFT UNIT VIA GURNEY IN STABLE CONDITION.
[2022-07-12] MEDS ORDERED: EPOETIN ALFA-EPBX 4,000 UNIT/ML VIAL SQ SCH (15:00)
== END 2022-07-11 01:14 | DRG 710 ==
LOC: ER 16:33 → TELE1 23:10 → MEDSG1 06-25 09:34
PROVIDERS: ADMIT Internal Medicine
PROC: 30233N1 Transfusion of Nonautologous Red Blood Cells into Peripheral Vein, Percutaneous Approach (ICD-10-PCS; principal; 2022-06-21)
PROC: 0QBL0ZZ Excision of Right Tarsal, Open Approach (ICD-10-PCS; 2022-06-21)
PROC: 0JBR0ZZ Excision of Left Foot Subcutaneous Tissue and Fascia, Open Approach (ICD-10-PCS; 2022-06-21)
PROC: 0JBP0ZZ Excision of Left Lower Leg Subcutaneous Tissue and Fascia, Open Approach (ICD-10-PCS; 2022-06-21)
PROC: 0Y6H0Z1 Detachment at Right Lower Leg, High, Open Approach (ICD-10-PCS; 2022-07-05)
DX: A41.9 Sepsis, unspecified organism (principal); N17.0 Acute kidney failure with tubular necrosis; M72.6 Necrotizing fasciitis; U07.1 COVID-19; E43 Unspecified severe protein-calorie malnutrition; A48.0 Gas gangrene; E11.52 Type 2 diabetes mellitus with diabetic peripheral angiopathy with gangrene; E11.621 Type 2 diabetes mellitus with foot ulcer; T79.7XXA Traumatic subcutaneous emphysema, initial encounter; E86.1 Hypovolemia; E87.1 Hypo-osmolality and hyponatremia; M86.671 Other chronic osteomyelitis, right ankle and foot; D75.839 Thrombocytosis, unspecified; N39.0 Urinary tract infection, site not specified; E11.622 Type 2 diabetes mellitus with other skin ulcer; E11.69 Type 2 diabetes mellitus with other specified complication; L97.519 Non-pressure chronic ulcer of other part of right foot with unspecified severity; L97.329 Non-pressure chronic ulcer of left ankle with unspecified severity; L97.529 Non-pressure chronic ulcer of other part of left foot with unspecified severity; E78.5 Hyperlipidemia, unspecified; R13.10 Dysphagia, unspecified; Z89.412 Acquired absence of left great toe; Z93.1 Gastrostomy status; Z95.5 Presence of coronary angioplasty implant and graft; I25.10 Atherosclerotic heart disease of native coronary artery without angina pectoris; H40.9 Unspecified glaucoma; H54.8 Legal blindness, as defined in USA; Z79.4 Long term (current) use of insulin; Z79.02 Long term (current) use of antithrombotics/antiplatelets; Z79.82 Long term (current) use of aspirin; Z79.899 Other long term (current) drug therapy; D64.9 Anemia, unspecified; E87.6 Hypokalemia; G40.909 Epilepsy, unspecified, not intractable, without status epilepticus; F20.9 Schizophrenia, unspecified; K86.1 Other chronic pancreatitis; Z91.199 Patient's noncompliance with other medical treatment and regimen due to unspecified reason; Z87.448 Personal history of other diseases of urinary system; K92.2 Gastrointestinal hemorrhage, unspecified; X58.XXXA Exposure to other specified factors, initial encounter; Y92.9 Unspecified place or not applicable; Z86.19 Personal history of other infectious and parasitic diseases; B96.5 Pseudomonas (aeruginosa) (mallei) (pseudomallei) as the cause of diseases classified elsewhere; B37.9 Candidiasis, unspecified; R65.20 Severe sepsis without septic shock; L97.229 Non-pressure chronic ulcer of left calf with unspecified severity; Z68.1 Body mass index [BMI] 19.9 or less, adult
CPT/HCPCS: 36415; 71045-TC; 73610-TC; 73620-TC; 73630-TC; 80048-TC; 80053-TC; 80202-TC; 81001; 82947-TC; 82962-TC; 83605-TC; 83735-TC; 84100-TC; 85025-TC; 85027-TC; 85378-TC; 85610-TC; 85730-TC; 86140-TC; 86850-TC; 87040-TC; 87086-TC; 88307-TC; 88311-TC; A4216; A4217; A4349; A6253; A6403; C9803; G0378; J0690; J0696; J0885; J1100; J1815; J2185; J2250; J2270; J2310; J2405; J2543; J2704; J2916; J3010; J3370; J3475; J3480; J3490; J7030; J7050; J7060; P9016; P9047

== ENCOUNTER 2022-08-03 19:20 | Inpatient (IN) | payer OTHER ==
[~2022-08-03] VITALS: Ht 170.2 cm; Wt 39.0 kg
[~2022-08-03 19:20] MED LIST changes: +ACET-868 PO; -ATOR40TA PO; +DOCU250C14 PO; -DOXY100T2 PO; +EPOE1VIA7 SQ; +GABA-532 PO; +GLUC1KIT IM; +HYDR-4303 PO; -MUPI22OI2 TP; +NUT.250L18 GT; -PIPE3.379 IV; -SODI480S2 TOP; +TIMO5DRO18 EACHEYE; -TIMO5SOL11 EACHEYE
[2022-08-03] MEDS ORDERED: IV NS 0.9% 1,000 ML BAG IV ONE ×2 (20:00→22:00)
[2022-08-03 20:52] LABS: CALCIUM, SERUM 8.3 mg/dL (8.5-10.1); CARBON DIOXIDE 26 mmol/L (21-32); CHLORIDE 102 mmol/L (98-107); CREATININE 0.8 mg/dL (0.6-1.3); GLUCOSE 247 mg/dL (74-106); POTASSIUM 4.3 mmol/L (3.5-5.1); SODIUM SERUM 133 mmol/L (136-145); UREA NITROGEN, BLOOD 22 mg/dL (7-18)
[2022-08-03 20:57] LABS: BASOPHILS # (AUTO) 0.2 K/uL (0.0-0.2); BASOPHILS % (AUTO) 2.7 % (0.0-2.0); EOSINOPHILS % (AUTO) 1.7 % (0.0-6.0); HEMATOCRIT 32 % (39-51); LYMPHOCYTES # (AUTO) 1.1 K/uL (0.8-4.8); LYMPHOCYTES % (AUTO) 13.5 % (20.0-44.0); MEAN CORPUSCULAR HGB CONC 32 g/dl (31.0-36.0); MEAN CORPUSCULAR VOLUME 90 fL (80-96); MONOCYTES # (AUTO) 0.7 K/uL (0.1-1.30); MONOCYTES % (AUTO) 7.8 % (2.0-12.0); NEUTROPHILS # (AUTO) 6.2 K/uL (1.8-8.9); NEUTROPHILS % (AUTO) 74.3 % (43.0-81.0); PLATELET COUNT (AUTO) 694 K/uL (150-450); RED BLOOD CELL COUNT(AUTO) 3.49 MIL/uL (4.5-6.0); WHITE BLOOD COUNT (AUTO) 8.4 K/uL (4.3-11.0)
[2022-08-03 20:59] LABS: ALANINE AMINOTRANSFERASE 20 U/L (12-78); ALBUMIN 1.6 g/dL (3.4-5.0); ALKALINE PHOSPHATASE 175 U/L (46-116); ASPARTATE AMINOTRANSFERASE 26 U/L (15-37); BILIRUBIN,DIRECT 0.1 mg/dL (0.0-0.2); BILIRUBIN,TOTAL 0.2 mg/dL (0.2-1.0); TOTAL PROTEIN, SERUM 5.8 g/dL (6.4-8.2)
[2022-08-03] MEDS ORDERED: VANCOMYCIN 1 GM in IV D5W 250 ML IV ONE (22:00)
[2022-08-03] MEDS ORDERED: CEFEPIME 1 GM in IV D5W 50 ML IV ONE (22:00)
[2022-08-03] MEDS ORDERED: CEFEPIME 1 GM VIAL ONE (22:09)
[2022-08-03] MEDS ORDERED: VANCOMYCIN 1 GM VIAL ONE (22:10)
[2022-08-03 22:47] LABS: BILIRUBIN,URINE NEGATIVE (NEGATIVE); COLOR,URINE YELLOW (YELLOW); LEUKOCYTE ESTERASE ,URINE 3+ (NEGATIVE); NITRITE, URINE NEGATIVE (NEGATIVE); PH,URINE 6.5 (5.0-8.0); PROTEIN,URINE 1+ mg/dl (NEGATIVE); UGLUCOSE NEGATIVE (NEGATIVE); UROBILINOGEN,URINE 0.2 EU/dL (0.2)
[2022-08-03 23:35] LABS: BACTERIA,URINE Few /HPF (None Seen); RBC,URINE 21-50 /HPF (0-2); SQUAMOUS EPITHELIAL CELL,UR Rare /HPF (None Seen); WBC,URINE 21-50 /HPF (0-3)
[2022-08-03 23:36] LABS: YEAST,URINE Few /HPF (None Seen)
[2022-08-04] MEDS ORDERED: ZOLPIDEM TARTRATE 5 MG TABLET PO PRN
[2022-08-04] MEDS ORDERED: MAG HYDROX/AL HYDROX/SIMETH 30 ML UDC PO PRN
[2022-08-04] MEDS ORDERED: CEFTRIAXONE 1 G in IV D5W 50 ML IV SCH ×2
[2022-08-04] MEDS ORDERED: Z GUARD REMEDY 4 OZ OINT TP PRN
[2022-08-04] MEDS ORDERED: MAGNESIUM HYDROXIDE 30 ML UDC PO PRN
[2022-08-04] MEDS ORDERED: ONDANSETRON HCL/PF 4 MG/2 ML VIAL IVP PRN
[2022-08-04] MEDS ORDERED: LORAZEPAM INJ 2 MG/ML VIAL IV PRN (01:00)
[2022-08-04] MEDS ORDERED: ACETAMINOPHEN 325 MG TABLET PO PRN ×2 (01:00)
[2022-08-04] MEDS ORDERED: BISACODYL SUPP (10 MG) 10 MG/SUPP.RECT SUPP.RECT RC PRN (01:00)
[2022-08-04] MEDS ORDERED: NA PHOS,M-B/NA PHOS,DI-BA 1 EA ENEMA RC PRN (01:00)
[2022-08-04] MEDS ORDERED: LEVETIRACETAM (500MG) 500 MG/5 ML VIAL IV ONE (01:14)
[2022-08-04] MEDS ORDERED: ENOXAPARIN SODIUM 40 MG/0.4 ML DISP.SYRIN SQ ONE (01:15)
[2022-08-04] MEDS: LEVETIRACETAM (500MG) 500 MG in IV NS 0.9% 100 ML IV SCH ×3 (01:15→23:52)
[2022-08-04] MEDS ORDERED: CEFTRIAXONE 1GM BAG (ER ONLY) 50 ML IV ONE (01:15)
[2022-08-04] MEDS ORDERED: GLUCAGON,HUMAN RECOMBINANT 1 MG/VIAL VIAL IM PRN (01:30)
[2022-08-04] MEDS: ENOXAPARIN SODIUM 40 MG/0.4 ML DISP.SYRIN SQ SCH ×2 (01:31→21:51)
[2022-08-04 04:00] VITALS: BP 95/66
[2022-08-04 07:15] LABS: BASOPHILS # (AUTO) 0.1 K/uL (0.0-0.2); BASOPHILS % (AUTO) 0.7 % (0.0-2.0); EOSINOPHILS % (AUTO) 0.4 % (0.0-6.0); HEMATOCRIT 28 % (39-51); HEMOGLOBIN 9.1 g/dL (13.5-17.5); LYMPHOCYTES # (AUTO) 1.4 K/uL (0.8-4.8); LYMPHOCYTES % (AUTO) 12.1 % (20.0-44.0); MEAN CORPUSCULAR HGB CONC 33 g/dl (31.0-36.0); MEAN CORPUSCULAR VOLUME 88 fL (80-96); MONOCYTES # (AUTO) 0.8 K/uL (0.1-1.30); MONOCYTES % (AUTO) 7.2 % (2.0-12.0); NEUTROPHILS # (AUTO) 9.2 K/uL (1.8-8.9); NEUTROPHILS % (AUTO) 79.6 % (43.0-81.0); PLATELET COUNT (AUTO) 603 K/uL (150-450); RED BLOOD CELL COUNT(AUTO) 3.15 MIL/uL (4.5-6.0); WHITE BLOOD COUNT (AUTO) 11.5 K/uL (4.3-11.0)
[2022-08-04] MEDS ORDERED: PANTOPRAZOLE 40 MG TABLET.DR PO SCH (07:30)
[2022-08-04 07:36] LABS: CALCIUM, SERUM 7.6 mg/dL (8.5-10.1); CREATININE 0.6 mg/dL (0.6-1.3); MAGNESIUM 1.7 mg/dL (1.8-2.4); PHOSPHORUS 2.9 mg/dL (2.5-4.9); POTASSIUM 4.4 mmol/L (3.5-5.1)
[2022-08-04] MEDS: PANTOPRAZOLE 40 MG TABLET.DR PO SCH (07:44)
[2022-08-04 08:00] VITALS: BP 97/63
[2022-08-04] MEDS ORDERED: PROSTAT (PYXIS) 30 ML UDC PO SCH (09:00)
[2022-08-04] MEDS: ASPIRIN 81 MG TAB.CHEW PO SCH (09:13)
[2022-08-04] MEDS: OLANZAPINE 2.5 MG TABLET PO SCH (09:13)
[2022-08-04] MEDS: PSYLLIUM SEED 1 PKT PACKET PO SCH (09:13)
[2022-08-04] MEDS: CLOPIDOGREL BISULFATE 75 MG TABLET PO SCH (09:13)
[2022-08-04] MEDS: ZINC SULFATE 220 MG CAPSULE PO SCH (09:14)
[2022-08-04] MEDS: GABAPENTIN 100 MG CAPSULE PO SCH ×3 (09:14→17:11)
[2022-08-04] MEDS: MULTIVIT W/MINERALS 1 TAB TABLET PO SCH (09:19)
[2022-08-04] MEDS: CALCIUM CARBONATE (1250) 500 MG TABLET PO SCH (09:19)
[2022-08-04] MEDS: HYDROCODONE/APAP 5/325MG TABLET PO SCH (09:19)
[2022-08-04] MEDS: FOLIC ACID 1 MG TABLET PO SCH (09:20)
[2022-08-04] MEDS: FERROUS SULFATE (325 MG) 325 MG/TAB TABLET PO SCH ×2 (09:20→17:11)
[2022-08-04] MEDS: ASCORBIC ACID 500 MG TABLET PO SCH (09:21)
[2022-08-04] MEDS: EPOETIN ALFA (10,000 UNIT) 10,000 UNIT/ML VIAL SQ SCH (09:26)
[2022-08-04] MEDS: GLUCERNA 1.2 1,000 ML BOTTLE NG PRN (09:57)
[2022-08-04] MEDS ORDERED: MAGNESIUM OXIDE 400 MG TABLET PO ONE (10:00)
[2022-08-04 12:00] VITALS: BP 137/72
[2022-08-04] MEDS: TIMOLOL 0.5% SOLN OPHTH 5 ML BOTTLE EACHEYE SCH ×2 (13:15→17:15)
[2022-08-04] MEDS: PROSOURCE / PROSTAT (PYXIS) 30 ML UDC GT SCH ×2 (13:19→17:12)
[2022-08-04] MEDS: IV NS 0.9% 1,000 ML IV PRN (15:20)
[2022-08-04 16:00] VITALS: BP 137/72
[2022-08-04 20:35] VITALS: BP 99/65
[2022-08-04] MEDS: DOCUSATE SODIUM 250 MG CAPSULE PO SCH (21:52)
[2022-08-04] MEDS ORDERED: INSULIN GLARGINE, 100 UNIT/ML CARTRIDGE SQ SCH (22:00)
[2022-08-04] MEDS ORDERED: INSULIN REGULAR, HUMAN 100 UNIT/ML 3 ML VIAL SQ PRN (22:30)
[2022-08-04] MEDS ORDERED: DEXTROSE 50%-WATER 50 ML DISP.SYRIN IV PRN (22:30)
[2022-08-05] VITALS (29 sets, daily range): BP systolic 62–116; BP diastolic 33–76
[2022-08-05] MEDS: BLOOD SUGAR DIAGNOSTIC 1 EACH STRIP IN SCH ×4 (00:05→17:00)
[2022-08-05] MEDS ORDERED: CEFTRIAXONE 1 G in IV D5W 50 ML IV SCH (01:00)
[2022-08-05] MEDS: GLUCERNA 1.2 1,000 ML BOTTLE NG PRN (01:07)
[2022-08-05] MEDS: IV NS 0.9% 1,000 ML IV PRN ×2 (07:46→16:45)
[2022-08-05] MEDS: PROSOURCE / PROSTAT (PYXIS) 30 ML UDC GT SCH ×2 (09:02→16:59)
[2022-08-05] MEDS: CLOPIDOGREL BISULFATE 75 MG TABLET PO SCH (09:02)
[2022-08-05] MEDS: FERROUS SULFATE (325 MG) 325 MG/TAB TABLET PO SCH ×2 (09:02→16:59)
[2022-08-05] MEDS: FOLIC ACID 1 MG TABLET PO SCH (09:02)
[2022-08-05] MEDS: OLANZAPINE 2.5 MG TABLET PO SCH (09:02)
[2022-08-05] MEDS: PSYLLIUM SEED 1 PKT PACKET PO SCH (09:02)
[2022-08-05] MEDS: MULTIVIT W/MINERALS 1 TAB TABLET PO SCH (09:03)
[2022-08-05] MEDS: ASPIRIN 81 MG TAB.CHEW PO SCH (09:03)
[2022-08-05] MEDS: GABAPENTIN 100 MG CAPSULE PO SCH ×3 (09:03→16:59)
[2022-08-05] MEDS: ZINC SULFATE 220 MG CAPSULE PO SCH (09:03)
[2022-08-05] MEDS: CALCIUM CARBONATE (1250) 500 MG TABLET PO SCH (09:03)
[2022-08-05] MEDS: ASCORBIC ACID 500 MG TABLET PO SCH (09:03)
[2022-08-05] MEDS: HYDROCODONE/APAP 5/325MG TABLET PO SCH (09:03)
[2022-08-05] MEDS: PANTOPRAZOLE 40 MG TABLET.DR PO SCH (09:07)
[2022-08-05] MEDS: LEVETIRACETAM SOL (5 ML) 100 MG/ML UDC NG SCH ×2 (09:07→21:00)
[2022-08-05] MEDS: TIMOLOL 0.5% SOLN OPHTH 5 ML BOTTLE EACHEYE SCH ×2 (09:07→17:05)
[2022-08-05 10:48] LABS: BASOPHILS # (AUTO) 0.1 K/uL (0.0-0.2); HEMATOCRIT 25 % (39-51); HEMOGLOBIN 7.9 g/dL (13.5-17.5); LYMPHOCYTES # (AUTO) 1.8 K/uL (0.8-4.8); LYMPHOCYTES % (AUTO) 17.1 % (20.0-44.0); MEAN CORPUSCULAR HGB CONC 32 g/dl (31.0-36.0); MEAN CORPUSCULAR VOLUME 90 fL (80-96); MONOCYTES % (AUTO) 9.1 % (2.0-12.0); NEUTROPHILS # (AUTO) 7.3 K/uL (1.8-8.9); NEUTROPHILS % (AUTO) 69.8 % (43.0-81.0); PLATELET COUNT (AUTO) 351 K/uL (150-450); RED BLOOD CELL COUNT(AUTO) 2.78 MIL/uL (4.5-6.0); WHITE BLOOD COUNT (AUTO) 10.5 K/uL (4.3-11.0)
[2022-08-05 10:57] LABS: CALCIUM, SERUM 7.9 mg/dL (8.5-10.1); CREATININE 0.6 mg/dL (0.6-1.3); POTASSIUM 4.3 mmol/L (3.5-5.1)
[2022-08-05] MEDS ORDERED: GLUCERNA 1.2 1,000 ML BOTTLE NG PRN (11:30)
[2022-08-05 16:53] LABS: ABG BASE EXCESS -1.6 mmol/L; ABG OXYGEN SATURATION 97.7 % (92.0-98.5); ABG PCO2 45.8 mmHg (35.0-45.0); ABG PH 7.341 (7.350-7.450); ABG PO2 108.8 mmHg (75.0-100.0); AaDO2 558.4 mmHg; MetHb 0.3 % (0.0-1.5); O2Hb 97.4 % (94.0-97.0); SITE, ABG Left Brachial; VENT MODE, BG 15 L O2 NRB
[2022-08-05] MEDS ORDERED: INSULIN REGULAR, HUMAN 100 UNIT/ML 3 ML VIAL SQ PRN (17:00)
[2022-08-05] MEDS ORDERED: DEXTROSE 50%-WATER 50 ML DISP.SYRIN IV PRN (17:00)
[2022-08-05] MEDS ORDERED: IV NS 0.9% 500 ML IV ONE (17:30)
[2022-08-05] MEDS: IV NS 0.9% 250 ML IV PRN (18:40)
[2022-08-05] MEDS: NOREPINEPHRINE 8 MG in IV NS 0.9% 242 ML IV PRN (19:17)
[2022-08-05 20:58] LABS: ABG BASE EXCESS -4.9 mmol/L; ABG OXYGEN SATURATION 96.7 % (92.0-98.5); ABG PCO2 52.7 mmHg (35.0-45.0); ABG PH 7.248 (7.350-7.450); ABG PO2 104.4 mmHg (75.0-100.0); AaDO2 555.9 mmHg; COHb 0.3 % (0.5-1.5); MetHb 0.2 % (0.0-1.5); O2Hb 96.2 % (94.0-97.0); SITE, ABG Right Radial; VENT MODE, BG 15L NRB
[2022-08-05] MEDS: ENOXAPARIN SODIUM 40 MG/0.4 ML DISP.SYRIN SQ SCH (21:00)
[2022-08-05] MEDS: DOCUSATE SODIUM 250 MG CAPSULE PO SCH (21:12)
[2022-08-05] MEDS: PIPERACILLIN /TAZOBACTAM 3.375 G in IV D5W 100 ML IV SCH (21:16)
[2022-08-05] MEDS ORDERED: Sodium Chloride 154 MEQ in IV 10% DEXTROSE 1,000 ML IV PRN (21:30)
[2022-08-06] VITALS (103 sets, daily range): BP systolic 34–142; BP diastolic 19–118
[2022-08-06] MEDS: BLOOD SUGAR DIAGNOSTIC 1 EACH STRIP IN SCH ×4 (00:40→18:14)
[2022-08-06] MEDS ORDERED: NOREPINEPHRINE 8MG/250ML RTU 250 ML IV ONE (01:19)
[2022-08-06] MEDS: NOREPINEPHRINE 8 MG in IV NS 0.9% 242 ML IV PRN ×3 (01:25→09:36)
[2022-08-06] MEDS: PIPERACILLIN /TAZOBACTAM 3.375 G in IV D5W 100 ML IV SCH ×3 (02:00→17:55)
[2022-08-06] MEDS: LORAZEPAM INJ 2 MG/ML VIAL IV PRN ×3 (03:59→23:41)
[2022-08-06] MEDS ORDERED: ZOLPIDEM TARTRATE 5 MG TABLET NG PRN (07:59)
[2022-08-06] MEDS ORDERED: PHARMACY TO CHANGE PO MEDS TO GT/NG XX PRN (08:00)
[2022-08-06] MEDS ORDERED: FERROUS SULFATE (325 MG) 325 MG/TAB TABLET GT SCH (08:01)
[2022-08-06] MEDS ORDERED: MAG HYDROX/AL HYDROX/SIMETH 30 ML UDC NG PRN (08:01)
[2022-08-06] MEDS ORDERED: MAGNESIUM HYDROXIDE 30 ML UDC NG PRN (08:03)
[2022-08-06] MEDS ORDERED: ACETAMINOPHEN 650 MG/20.3 ML UDC NG PRN (08:30)
[2022-08-06] MEDS: OLANZAPINE 2.5 MG TABLET NG SCH (09:57)
[2022-08-06] MEDS: PANTOPRAZOLE 40 MG/PACK PACK NG SCH (09:57)
[2022-08-06] MEDS: MULTIVIT W/MINERALS 1 TAB TABLET NG SCH (09:57)
[2022-08-06] MEDS: FOLIC ACID 1 MG TABLET NG SCH (09:58)
[2022-08-06] MEDS: PSYLLIUM SEED 1 PKT PACKET NG SCH (09:59)
[2022-08-06] MEDS: LEVETIRACETAM SOL (5 ML) 100 MG/ML UDC NG SCH ×2 (09:59→21:23)
[2022-08-06] MEDS: CALCIUM CARBONATE (1250) 500 MG TABLET NG SCH (09:59)
[2022-08-06] MEDS: HYDROCODONE/APAP 5/325MG TABLET NG SCH (10:01)
[2022-08-06] MEDS: CLOPIDOGREL BISULFATE 75 MG TABLET NG SCH (10:01)
[2022-08-06] MEDS: ASPIRIN 81 MG TAB.CHEW NG SCH (10:02)
[2022-08-06] MEDS: ZINC SULFATE 220 MG CAPSULE NG SCH (10:02)
[2022-08-06] MEDS: GABAPENTIN 100 MG CAPSULE NG SCH ×3 (10:02→17:52)
[2022-08-06] MEDS: ASCORBIC ACID 500 MG TABLET NG SCH (10:03)
[2022-08-06] MEDS: FERROUS SULFATE (325 MG) 325 MG/TAB TABLET NG SCH ×2 (10:03→17:52)
[2022-08-06] MEDS: TIMOLOL 0.5% SOLN OPHTH 5 ML BOTTLE EACHEYE SCH ×2 (10:08→17:53)
[2022-08-06] MEDS: PROSOURCE / PROSTAT (PYXIS) 30 ML UDC NG SCH ×2 (10:09→17:54)
[2022-08-06] MEDS ORDERED: Sodium Chloride 154 MEQ in IV 10% DEXTROSE 1,000 ML IV SCH (11:00)
[2022-08-06 11:56] LABS: ABG BASE EXCESS -10.2 mmol/L; ABG OXYGEN SATURATION 98.6 % (92.0-98.5); ABG PCO2 43.2 mmHg (35.0-45.0); ABG PH 7.216 (7.350-7.450); ABG PO2 131.5 mmHg (75.0-100.0); AaDO2 538.3 mmHg; COHb 0.7 % (0.5-1.5); MetHb 0.5 % (0.0-1.5); O2Hb 97.4 % (94.0-97.0); SITE, ABG Right Radial; VENT MODE, BG BIPAP 20/5 R16 100%
[2022-08-06] MEDS: NOREPINEPHRINE 32 MG in IV NS 0.9% 218 ML IV PRN (13:03)
[2022-08-06] MEDS: PHENYLEPHRINE 50 MG in IV NS 0.9% 245 ML IV PRN ×2 (13:42→21:17)
[2022-08-06] MEDS: IV 10% DEXTROSE 1,000 ML IV PRN (14:05)
[2022-08-06] MEDS: IV NS 0.9% 250 ML IV PRN (17:56)
[2022-08-06] MEDS: ENOXAPARIN SODIUM 40 MG/0.4 ML DISP.SYRIN SQ SCH (21:00)
[2022-08-06] MEDS ORDERED: DOCUSATE SODIUM LIQ 100 MG/10 ML UDC NG SCH (22:00)
[2022-08-06] MEDS ORDERED: LORAZEPAM INJ 2 MG/ML VIAL IV PRN (23:00)
[2022-08-07] VITALS (87 sets, daily range): BP systolic 36–111; BP diastolic 24–83
[2022-08-07] MEDS: PIPERACILLIN /TAZOBACTAM 3.375 G in IV D5W 100 ML IV SCH ×3 (01:43→16:19)
[2022-08-07] MEDS: NOREPINEPHRINE 32 MG in IV NS 0.9% 218 ML IV PRN ×2 (01:44→13:26)
[2022-08-07] MEDS: IV 10% DEXTROSE 1,000 ML IV PRN ×2 (02:04→15:11)
[2022-08-07] MEDS: PHENYLEPHRINE 50 MG in IV NS 0.9% 245 ML IV PRN ×3 (04:26→16:57)
[2022-08-07] MEDS: LORAZEPAM INJ 2 MG/ML VIAL IV PRN (04:26)
[2022-08-07 05:15] LABS: BASOPHILS % (AUTO) 0.2 % (0.0-2.0); EOSINOPHILS % (AUTO) 2.2 % (0.0-6.0); HEMATOCRIT 34 % (39-51); LYMPHOCYTES # (AUTO) 0.9 K/uL (0.8-4.8); LYMPHOCYTES % (AUTO) 4.9 % (20.0-44.0); MEAN CORPUSCULAR HGB CONC 32 g/dl (31.0-36.0); MEAN CORPUSCULAR VOLUME 90 fL (80-96); MONOCYTES # (AUTO) 0.4 K/uL (0.1-1.30); MONOCYTES % (AUTO) 2.5 % (2.0-12.0); NEUTROPHILS % (AUTO) 90.2 % (43.0-81.0); PLATELET COUNT (AUTO) 353 K/uL (150-450); RED BLOOD CELL COUNT(AUTO) 3.83 MIL/uL (4.5-6.0); WHITE BLOOD COUNT (AUTO) 17.7 K/uL (4.3-11.0)
[2022-08-07 05:23] LABS: CALCIUM, SERUM 7.8 mg/dL (8.5-10.1); CREATININE 1.1 mg/dL (0.6-1.3); POTASSIUM 3.4 mmol/L (3.5-5.1)
[2022-08-07] MEDS: BLOOD SUGAR DIAGNOSTIC 1 EACH STRIP IN SCH ×4 (06:08→16:19)
[2022-08-07] MEDS: LEVETIRACETAM SOL (5 ML) 100 MG/ML UDC NG SCH (08:28)
[2022-08-07] MEDS: ZINC SULFATE 220 MG CAPSULE NG SCH (08:29)
[2022-08-07] MEDS: MULTIVIT W/MINERALS 1 TAB TABLET NG SCH (08:29)
[2022-08-07] MEDS: PANTOPRAZOLE 40 MG/PACK PACK NG SCH (08:30)
[2022-08-07] MEDS: ASCORBIC ACID 500 MG TABLET NG SCH (08:30)
[2022-08-07] MEDS: FOLIC ACID 1 MG TABLET NG SCH (08:31)
[2022-08-07] MEDS: OLANZAPINE 2.5 MG TABLET NG SCH (08:31)
[2022-08-07] MEDS: PSYLLIUM SEED 1 PKT PACKET NG SCH (08:31)
[2022-08-07] MEDS: GABAPENTIN 100 MG CAPSULE NG SCH ×3 (08:31→16:19)
[2022-08-07] MEDS: FERROUS SULFATE (325 MG) 325 MG/TAB TABLET NG SCH ×2 (08:32→16:18)
[2022-08-07] MEDS: CLOPIDOGREL BISULFATE 75 MG TABLET NG SCH (08:32)
[2022-08-07] MEDS: CALCIUM CARBONATE (1250) 500 MG TABLET NG SCH (08:32)
[2022-08-07] MEDS: ASPIRIN 81 MG TAB.CHEW NG SCH (08:33)
[2022-08-07] MEDS: TIMOLOL 0.5% SOLN OPHTH 5 ML BOTTLE EACHEYE SCH ×2 (08:33→16:20)
[2022-08-07] MEDS: HYDROCODONE/APAP 5/325MG TABLET NG SCH (08:33)
[2022-08-07] MEDS: EPOETIN ALFA (10,000 UNIT) 10,000 UNIT/ML VIAL SQ SCH (08:34)
[2022-08-07] MEDS: PROSOURCE / PROSTAT (PYXIS) 30 ML UDC NG SCH ×2 (08:34→16:19)
[2022-08-07] MEDS: POTASSIUM CL. PREMIX PERIPHER. 50 ML IV SCH ×2 (11:00→11:45)
[2022-08-07] MEDS ORDERED: MORPHINE SULFATE INJ 4 MG/ML DISP.SYRIN IV PRN (17:30)
[2022-08-07] MEDS ORDERED: MORPHINE SULFATE PF DRIP 250 MG in IV D5W 240 ML IV PRN (17:30)
[2022-08-07] MEDS ORDERED: LORAZEPAM INJ 2 MG/ML VIAL IV PRN (17:30)
== END 2022-08-07 21:10 | DRG 720 ==
LOC: ER 19:26 → TELE 08-04 00:48 → TELE1 08-04 00:59 → ICU 08-05 16:18
PROVIDERS: ADMIT Student in an Organized Health Care Education/Training Program; ATTEND Internal Medicine
PROC: 30233N1 Transfusion of Nonautologous Red Blood Cells into Peripheral Vein, Percutaneous Approach (ICD-10-PCS; 2022-08-05)
PROC: 02HV33Z Insertion of Infusion Device into Superior Vena Cava, Percutaneous Approach (ICD-10-PCS; 2022-08-05)
PROC: B548ZZA Ultrasonography of Superior Vena Cava, Guidance (ICD-10-PCS; 2022-08-05)
PROC: 5A09457 Assistance with Respiratory Ventilation, 24-96 Consecutive Hours, Continuous Positive Airway Pressure (ICD-10-PCS; principal; 2022-08-06)
DX: A41.9 Sepsis, unspecified organism (principal); R65.21 Severe sepsis with septic shock; G92.8 Other toxic encephalopathy; J15.6 Pneumonia due to other Gram-negative bacteria; J96.01 Acute respiratory failure with hypoxia; J96.02 Acute respiratory failure with hypercapnia; E11.51 Type 2 diabetes mellitus with diabetic peripheral angiopathy without gangrene; E86.0 Dehydration; G40.409 Other generalized epilepsy and epileptic syndromes, not intractable, without status epilepticus; G40.909 Epilepsy, unspecified, not intractable, without status epilepticus; E11.36 Type 2 diabetes mellitus with diabetic cataract; D63.8 Anemia in other chronic diseases classified elsewhere; E87.1 Hypo-osmolality and hyponatremia; L89.620 Pressure ulcer of left heel, unstageable; D75.839 Thrombocytosis, unspecified; E11.622 Type 2 diabetes mellitus with other skin ulcer; N39.0 Urinary tract infection, site not specified; Z20.822 Contact with and (suspected) exposure to COVID-19; K21.9 Gastro-esophageal reflux disease without esophagitis; Z66 Do not resuscitate; Z74.01 Bed confinement status; E78.5 Hyperlipidemia, unspecified; H54.8 Legal blindness, as defined in USA; H40.9 Unspecified glaucoma; Z79.4 Long term (current) use of insulin; Z79.02 Long term (current) use of antithrombotics/antiplatelets; Z79.82 Long term (current) use of aspirin; Z79.899 Other long term (current) drug therapy; Z89.511 Acquired absence of right leg below knee; Z95.5 Presence of coronary angioplasty implant and graft; I25.10 Atherosclerotic heart disease of native coronary artery without angina pectoris; R13.10 Dysphagia, unspecified; Z93.1 Gastrostomy status; K86.1 Other chronic pancreatitis; F20.9 Schizophrenia, unspecified; Z86.19 Personal history of other infectious and parasitic diseases; Z87.448 Personal history of other diseases of urinary system; R79.89 Other specified abnormal findings of blood chemistry; M62.3 Immobility syndrome (paraplegic); Z89.412 Acquired absence of left great toe; L97.929 Non-pressure chronic ulcer of unspecified part of left lower leg with unspecified severity; E87.6 Hypokalemia
CPT/HCPCS: 36415; 36600; 70450-TC; 71045-TC; 80048-TC; 80076-TC; 81001; 82803-TC; 82962-TC; 83605-TC; 83735-TC; 84100-TC; 85025-TC; 86850-TC; 87040-TC; 87081-TC; 87086-TC; 93970-TC; 94799-TC; 95819-TC; A6253; A6403; C9803; G0378; J0692; J0696; J0885; J1650; J1815; J1953; J2060; J2274; J2370; J2543; J3370; J3490; J7030; J7040; J7050; J7060; P9016